=== PATIENT | male | born 1955 | race Caucasian/White ===

== ENCOUNTER 2018-06-19 15:33 | Inpatient (IN) | payer OTHER, SELFPAY ==
[2018-06-19] VITALS (15 sets, daily range): BP systolic 158–210; BP diastolic 83–134; PULSE 87–121; RESP 16–20; TEMP 36.6–37.2; O2SAT 79–95; BMI 28.7; BMI 30.4
--- NOTE | 2018-06-19 15:49 | EKG12_ITS ---
Test Reason : SOB Blood Pressure : / mmHG Vent. Rate : 111 BPM Atrial Rate : 111 BPM P-R Int : 148 ms QRS Dur : 074 ms QT Int : 358 ms P-R-T Axes : 070 031 069 degrees QTc Int : 486 ms Sinus tachycardia Otherwise normal ECG Confirmed by KRZYSZTOF WHITNEY, ANDREEA ([id number]), publication editor KARLA BARAJAS ([id number]) on 06/22/2018 2:14:46 PM Referred By: IDA Confirmed By:ANDREEA BLANKESNHIP MD
--- NOTE | 2018-06-19 15:53 | ED.VISSUMM ---
- ER Visit Summary Date of Service: 06/19/18 Chief Complaint: Shortness of breath History of Present Illness: The patient is a 62 M who states he has not seen a doctor since at least the mid 1970s. Patient has a greater than [id number] history of smoking. Smokes currently about a pack per day. States he has been short of breath the last 1-2 years and has not had that evaluated. That is gotten worse of the last 2 days. Worse with exertion. He is also noticed some mild swelling in both lower extremities. He has never had a DVT or PE. He denies any known cardiac history but again he has not seen a doctor for more than 40 years. He has recently traveled to and from [place] by ground vehicle. He denies any calf pain. He denies any chest pain or hemoptysis. He denies any fever or melena. Physical Examination: Middle-aged male. Initial vital signs blood pressure 210/134. Afebrile. His initial pulse ox was 79% in triage without oxygen on 4 L is 94%. HEENT exam moist mucous membranes. Neck nontender no JVD. No lymphadenopathy. Lungs prolonged expiratory phase. No rales or rhonchi. Heart tachycardic rate about 120. No murmur. Abdomen is soft and nontender. Normal bowel sounds. No peritoneal signs. Patient moving all 4 extremities. 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 Both lower extremities have normal motor strength sensation. He has equal symmetrical trace edema in both lower extremities and feet. Calves are nontender without cords. Neurologically is awake alert with no focal motor deficits. Test Results: Chest x-ray shows chronic changes and borderline cardiomegaly no acute process. Read both by myself and radiologist. CBC White count of 10. Hemoglobin 17. Electrolytes unremarkable normal BUN, creatinine and gap. Troponin normal. D-dimer normal. BNP 297. EKG sinus tachycardia rate of 111 with no acute signs of PA or ischemia. Emergency Department Course and Treatment: Patient be given 2 aerosol treatments of DuoNeb and albuterol. He will do significant workup for both cardiac and respiratory causes. Due to his hypoxia he will most likely need to be admitted. Repeat exam is done better after aerosol treatments. He will also be given 125 of Solu-Medrol IV. Clinically an exacerbation of COPD. I very spoken to the hospitalist and she is down ER evaluating patient for admission. Treatment Plan: Hospitalization for further respiratory treatments. Disposition: Admission Impression: Acute dyspnea with hypoxia Acute examination of COPD newly diagnosed Trace lower extremity edema This note was generated with [employer] dictation software. It may contain incorrect words, spelling, and punctuation that were not noted in review of the chart prior to signing ED Disposition - Plan for ED Patient: Chief Complaint: Shortness of Breath
--- NOTE | 2018-06-19 15:55 | RAD_ITS ---
STUDY: X-RAY CHEST REASON FOR EXAM: Male, 62 years old. Chest pain TECHNIQUE: Single AP portable view of the chest. COMPARISON: None. FINDINGS: The lungs are clear and expanded. There is no demonstrated pleural abnormality. There is mild cardiac enlargement. Normal mediastinum and amrit. Normal visualized pulmonary arteries. Normal visualized aortic arch and descending thoracic aorta. Normal visualized thoracic spine. Normal visualized ribs, clavicles, and shoulders. There is no demonstrated abnormality of the visualized soft tissue structures of the upper abdomen. RAD/Chest 1 View (Portable) IMPRESSION: Mild cardiomegaly. Lungs are clear. Electronically Signed: Jozef Mendez DO at 16:37 EST Tel , Service support ,
--- NOTE | 2018-06-19 15:55 | NURSING ---
NO OLD EKGS
--- NOTE | 2018-06-19 15:56 | ED.DCSUM_ITS ---
- ER Visit Summary Date of Service: 06/19/18 Chief Complaint: Shortness of breath History of Present Illness: The patient is a 62 M who states he has not seen a doctor since at least the mid 1970s. Patient has a greater than [id number] history of smoking. Smokes currently about a pack per day. States he has been short of breath the last 1-2 years and has not had that evaluated. That is gotten worse of the last 2 days. Worse with exertion. He is also noticed some mild swelling in both lower extremities. He has never had a DVT or PE. He denies any known cardiac history but again he has not seen a doctor for more than 40 years. He has recently traveled to and from [place] by ground vehicle . He denies any calf pain. He denies any chest pain or hemoptysis. He denies any fever or melena. Physical Examination: Middle-aged male. Initial vital signs blood pressure 2 10/134. Afebrile. His initial pulse ox was 79% in triage without oxygen on 4 L is 94%. HEENT exam moist mucous membranes. Neck nontender no JVD. No lymphadenopathy. Lungs prolonged expiratory phase. No rales or rhonchi. Heart tachycardic rate about 120. No murmur. Abdomen is soft and nontender. Normal bowel sounds. No peritoneal signs. Patient moving all 4 extremities. The upper extremities are neurovascular intact with 5 out of 5 bilingual spanish inbound sales strength. Both lower extremities have normal motor strength sensation. He has equal symmetrical trace edema in both lower extremities and feet. Calves are nontender without cords. Neurologically is awake alert with no focal motor deficits. Test Results: Chest x-ray shows chronic changes and borderline cardiomegaly no a cute process. Read both by myself and radiologist. CBC White count of 10. Hemoglobin 17. Electrolytes unremarkable normal BUN, creatinine and gap. Troponin normal. D-dimer normal. BNP 297. EKG sinus tachycardia rate of 111 with no acute signs of KS or ischemia. Emergency Department Course and Treatment: Patient be given 2 aerosol treatments of DuoNeb and albuterol. He will do significant workup for both cardiac and respiratory causes. Due to his hypoxia he will most likely need to be admitted. Repeat exam is done better after aerosol treatments. He will also be given 125 of Solu-Medrol IV. Clinically an exacerbation of COPD. I very spoken to the hospitalist and she is down ER evaluating patient for admission. Treatment Plan: Hospitalization for further respiratory treatments. Disposition: Admission Impression: Acute dyspnea with hypoxia Acute examination of COPD newly diagnosed Trace lower extremity edema This note was generated with [employer] dictation software. It may contain incorrect words, spelling, and punctuation that were not noted in review of the chart prior to signing ED Disposition - Plan for ED Patient: Chief Complaint: Shortness of Breath
[2018-06-19 16:03] LABS: Absolute Lymphocyte Count 2.14 X10^3/ul (0.83-4.51); Basophil# 0.05 X10^3/uL; Basophil% 0.5 % (0-1); Eosinophil# 0.08 X10^3/uL; Eosinophils% 0.8 % (0-5); Hemoglobin 17.9 g/dl (13.0-16.5); Lymphocyte # 2.14 X10^3/ul (4.0); Lymphocyte % 20.4 % (19-41); Mean Corp Hgb Conc 31.5 g/gl (32-36); Mean Corpuscular Hgb 29.5 pg (27.0-32.0); Mean Corpuscular Volume 93.6 fL (80-94); Mean Platelet Vol. 11.8 fl (6.2-12.0); Monocyte# 1.16 X10^3/uL; Monocyte% 11.1 % (0-10); Neutrophil # 7.03 X10^3/uL (2.7-7.7); Platelet Count 219 K/mm3 (150-450); RBC Distribution Width CV 13.6 % (11.6-14.6); RBC Distribution Width SD 46.7 fl (35.1-43.9); Red Blood Count 6.07 M/mm3 (4.6-6.2); White Blood Count 10.5 K/mm3 (4.4-11.0)
[2018-06-19 16:07] LABS: Hematocrit 56.8 % (40-54); POSITIVE COUNT NO; POSITIVE DIFFERENTIAL NO; POSITIVE MORPHOLOGY NO
[2018-06-19] MEDS: Albuterol 2.5 MG/3 ML VIAL.NEB. INHALATION (16:12)
[2018-06-19] MEDS: Ipratropium/Albuterol Sulfate 3 ML AMPUL.NEB INHALATION (16:12)
[2018-06-19 16:37] LABS: BNP,B-Type NATRIURETIC PEPTIDE 297.5 pg/mL (0-100)
[2018-06-19 17:08] LABS: D-Dimer Quantitative (DVT/PE) 0.36 FEU/ug/m (0.27-0.49)
[2018-06-19 17:08] LABS: Anion Gap 7 (5-15); BUN 16 mg/dL (7-18); BUN/Creat Ratio 20.9 RATIO (10-20); Calcium,Total 8.7 mg/dL (8.5-10.1); Chloride 102 mmol/L (98-107); Creatinine, Serum 0.76 mg/dL (0.70-1.30); EST Glomerular Filtration Rate 110 mL/min (>60); Est Glom Filt Rate - Afr Amer 133 mL/min (>60); Estimated Creatinine Clearance 123.54 ml/min; Glucose 117 mg/dL (74-106); Sodium Level 140 mmol/L (136-145)
--- NOTE | 2018-06-19 17:15 | NURSING ---
MED SURG OBS WHITE HYPOXIA, COPD FLARE
[2018-06-19] MEDS: MethylPREDNISolone 125 MG/2 ML Vial IV (17:39)
--- NOTE | 2018-06-19 18:00 | PCM.HP.STD ---
Problem List (1) COPD with acute exacerbation Status: Chronic (2) Acute respiratory failure with hypoxia Status: Acute (3) Tobacco use Status: Acute (4) Elevated BP without diagnosis of hypertension Status: Acute (5) NIDA (obstructive sleep apnea) Status: Suspected (6) Overweight (BMI 25.0-29.9) Status: Chronic (7) Lower extremity edema Status: Chronic History of Present Illness Date of Admission: 06/19/18 Chief Complaint: Dyspnea The patient is a 62 y/o M w/ PMHx: Obesity, Tobacco use who presents to the [facility] ED on 06/19/18 with history of not seeing a physician since the mid with history of ongoing tobacco use previously 2 pack/day now down to 5-10 cigarettes daily with at least a 32-[id number]-[id number] history with ongoing dyspnea over the last year at least worsened dramatically over the last 2 days, more severe with exertion in addition to mildly increased swelling bilateral lower extremities with recent drive from [place] during the holidays with chronic cough, occasionally productive with no fevers or chills. The patient does travel overseas routinely to [facility] and remains there for several weeks. The ED initial presentation with T 97.8, heart rate 121, BP 210/134, respiratory rate 20, 79% on room air, increased work of breathing, accessory muscle usage, conversational dyspnea, improved to heart rate 107, BP 184/114, respiratory rate 18, 94% on 2 L with oxygen supplementation and interventions in the ED. ED workup included BC with WC 10.5, heme globin 17.9, platelet 219 without market shift, d-dimer 0.36, BMP with glucose 117, troponin 0 0.039, EKG with sinus tachycardia with no acute evidence of ischemia, BNP 297.5 chest x-ray with chronic changes, mild cardiomegaly. In the ED patient administered Solu-Medrol, DuoNeb, albuterol therapies. Past Medical History Past Medical History (Chronic Problems): Chronic Problems COPD with acute exacerbation (Chronic) Overweight (BMI 25.0-29.9) (Chronic) Lower extremity edema (Chronic) Allergies No Known Allergies Allergy (Verified 06/19/18 15:41) Home Medications: Ambulatory Orders Medication Instructions Recorded NK 06/19/18 Surgical History: no surgical history Psychiatric History: No pertinent psych hx Lives: Spouse/ Significant Other Smoking Status: Current every day smoker - Currently 5-10 cig/day, prior up to 2 ppd since teen, at least 40 year history of cigarette usage. Tobacco Use: Cigarettes Alcohol: None Drugs: None - *Family History Maternal History Items: - - Mother with a history of bone cancer. Paternal History Items: - - Father with a history of COPD, tobacco usage noted to be a grain commodity manager with exposure. Review of Systems Constitutional: Reports: Malaise, Weakness, Fatigue. Denies: Chills, Fever, Weight Change HEENT: Denies: Head Aches, Sinus Congestion, Sinus Drainage Cardiovascular: Reports: Edema. Denies: Chest Pain, Palpitations Respiratory: Reports: Cough, Shortness of Breath, Shortness of breath at rest, Shortness of breath upon exertion, Sputum production, Wheezing Gastrointestinal: Denies: Abdominal Pain, Nausea, Vomiting Genitourinary: Denies: Dysuria Musculoskeletal: Denies: Joint Pain, Joint Tenderness Skin: Denies: Rash, Wounds Neurological: Denies: Numbness, Tingling, Focal weakness Psychiatric: Denies: Anxiety, Depression, Homicidal Ideations, Suicidal Ideations Hematologic/ Lymphatic: Denies: Easy Bruising, Easy Bleeding VTE Information - Inpt Only VTE Present on Admission: No VTE Mechan Device Prophylaxis: SCD's VTE Pharm Prophylaxis ordered?: Yes Patient Problems: Active and Suspected Problems Acute respiratory failure with hypoxia (Acute) Tobacco use (Acute) Elevated BP without diagnosis of hypertension (Acute) NIDA (obstructive sleep apnea) (Suspected) Subjective: Seated upright in the MS bed, improved appearance from prior initial ED presentation, had been noted to have increased work of breathing, accessory muscle usage prior w/ O2 79%. Objective: Physical Examination: General: awake, alert, oriented x 3 and cooperative, seated upright in the MS bed in no apparent distress, notably improved, noted he had prior had perioral blue hue, increased work of breathing, accessory muscle usage, now able to converse. Skin: normal color, turgor, no icterus, cyanosis. HEENT: AT/NC, EOMI, PERRLA, mildly dry MM, no carotid bruits or JVD noted, thickened neck. Lungs: Diminished BS throughout, mild end expiratory wheeze noted, improved from prior as noted, increased work of breathing, accessory muscle usage, conversing currently, no rales or rhonchi. Heart: Improved, mildly tachycardic with regular rhythm; no gallop, rub audible. Abdomen: soft, obese, NTTP, ND, normal BS, no HSM. Extremities: no cyanosis, clubbing, mild BL ankle edema. Neurological: patient awake, alert, oriented x 3; cognitive function intact; pupils equally reactive to light and accomodation; cranial nerves II-XII grossly normal, moving all 4 extremities, no focal deficits, strength moderately to severely globally decreased secondary to acute presentation, improved from initial. Psychiatric: affect appears normal, fatigued, no acute evidence of depressive or anxiety feelings. - Physical Exam Vital Signs Temp Pulse Resp BP Pulse Ox 99.0 F 107 H 18 184/114 H 94 06/19/18 17:16 06/19/18 17:16 06/19/18 17:16 06/19/18 17:16 06/19/18 17:16 Oxygen Flow Rate (L/min) 2 Oxygen Delivery Method Nasal Cannula Weight: 230 lb Body Mass Index (BMI) 28.7 Laboratory Tests Past 24 Hrs 06/19/18 06/19/18 06/19/18 15:50 15:50 15:50 WBC 10.5 RBC 6.07 Hgb 17.9 H Hct 56.8 H MCV 93.6 MCH 29.5 MCHC 31.5 L RDW 13.6 RDW Differential 46.7 H Plt Count 219 MPV 11.8 Immature Gran % (Auto) 0.200 Neut % (Auto) 67.0 Lymph % (Auto) 20.4 Jay % (Auto) 11.1 H Eos % (Auto) 0.8 Baso % (Auto) 0.5 Absolute Neuts (auto) 7.0 Absolute Lymphs (auto) 2.14 Total Counted Not Reportable D-Dimer Quant (PE/DVT) Cancelled Sodium 140 Potassium 5.0 Chloride 102 Carbon Dioxide 31.0 Anion Gap 7 BUN 16 Creatinine 0.76 Estim Creat Clear Calc 123.54 Est GFR (MDRD) Af Amer 133 Est GFR (MDRD) Non-Af 110 BUN/Creatinine Ratio 20.9 H Glucose 117 H Calcium 8.7 Troponin I 0.039 B-Natriuretic Peptide 06/19/18 06/19/18 15:50 16:17 WBC RBC Hgb Hct MCV MCH MCHC RDW RDW Differential Plt Count MPV Immature Gran % (Auto) Neut % (Auto) Lymph % (Auto) Jay % (Auto) Eos % (Auto) Baso % (Auto) Absolute Neuts (auto) Absolute Lymphs (auto) Total Counted D-Dimer Quant (PE/DVT) 0.36 Sodium Potassium Chloride Carbon Dioxide Anion Gap BUN Creatinine Estim Creat Clear Calc Est GFR (MDRD) Af Amer Est GFR (MDRD) Non-Af BUN/Creatinine Ratio Glucose Calcium Troponin I B-Natriuretic Peptide 297.5 H Assessment/Plan All Active Problems Acute respiratory failure with hypoxia (Acute) Tobacco use (Acute) Elevated BP without diagnosis of hypertension (Acute) The patient is a 62 y/o M w/ PMHx: Obesity, Tobacco use who presents to the [facility] ED on 06/19/18 with history of not seeing a physician since the mid 1970s with history of ongoing tobacco use previously 2 pack/day now down to 5-10 cigarettes daily with at least a [id number] history with ongoing dyspnea over the last year at least worsened dramatically over the last 2 days, more severe with exertion in addition to mildly increased swelling bilateral lower extremities with recent drive from [place] during the holidays with chronic cough, occasionally productive with no fevers or chills. (1) Acute on Suspected chronic COPD exacerbation w/ Acute Hypoxic Respiratory Failure: D-dimer negative. CXR w/ chronic changes while cardiomegaly, initial oxygenation 79%, accessory muscle usage noted, increased work of breathing initially, improved with aerosols and steroid administration as well as supplemental oxygen therapies. Will admit to MS on telemetry given improvement following ED interventions, maintain on oxygen with wean as tolerated to room air, continue ATC duonebs, PRN albuterol, IV methylprednisolone, HOB, IS parameters, pending sputum cultures and respiratory viral panel. Will benefit from oxygenation testing prior to discharge to home in addition to follow-up with pulmonary medicine for pulmonary function testing and for deep apnea assessment as and patient notes that he snores markedly and has thickened neck. Given patient notable oversee travels to [place] may need to consider CT chest. (2) Elevated BP without HTN: Suspect long-term uncontrolled hypertension, will add low-dose JEFF inhibitor, continue PRN IV Lopressor and hydralazine, add additional regimen pending response, add baby daily aspirin. Echocardiogram pending as noted BL LE edema and cardiomegaly in setting of uncontrolled HTN. AM FLP requested. (3) Obesity: Weight loss and lifestyle changes encouraged, nutrition consulted for education and teaching. (4) Tobacco Abuse: Encouraged cessation, inpatient consultation per RT, NR if desired. (5) Suspected NIDA: Benefit from outpatient sleep study assessment with pulmonary follow-up as noted for PFTs. (6) DVT Prophylaxis: SCDs, lovenox. Code Visit Inpatient E&M: 22619 Init Hosp L3
--- NOTE | 2018-06-19 18:05 | HP.PCM_ITS ---
Problem List (1) COPD with acute exacerbation Status: Chronic (2) Acute respiratory failure with hypoxia Status: Acute (3) Tobacco use Status: Acute (4) Elevated BP without diagnosis of hypertension Status: Acute (5) NIDA (obstructive sleep apnea) Status: Suspected (6) Overweight (BMI 25.0-29.9) Status: Chronic (7) Lower extremity edema Status: Chronic History of Present Illness Date of Admission: 06/19/18 Chief Complaint: Dyspnea The patient is a 62 y/o M w/ PMHx: Obesity, Tobacco use who presents to the [facility] ED on 06/19/18 with history of not seeing a physician since the mid with history of ongoing tobacco use previously 2 pack/day now down to 5-10 cigarettes daily with at least a [id number] history with ongoing dyspnea over the last year at least worsened dramatically over the last 2 days, more severe with exertion in addition to mildly increased swelling bilateral lower extremities with recent drive from [place] during the holidays with chronic cough, occasionally productive with no fevers or chills. The patient does travel overseas routinely to [facility] and remains there for several weeks. The ED initial presentation with T 97.8, heart rate 121, BP 210/134, respiratory rate 20, 79% on room air, increased work of breathing, accessory muscle usage, conversational dyspnea, improved to heart rate 107, BP 184/114, respiratory rate 18, 94% on 2 L with oxygen supplementation and interventions in the ED. ED workup included BC with WC 10.5, heme globin 17.9, platelet 219 without market shift, d-dimer 0.36, BMP with glucose 117, troponin 0 0.039, EKG with sinus tachycardia with no acute evidence of ischemia, BNP 297.5 chest x-ray with chronic changes, mild cardiomegaly. In the ED patient administered Solu-Medrol, DuoNeb, albuterol therapies. Past Medical History Past Medical History (Chronic Problems): Chronic Problems COPD with acute exacerbation (Chronic) Overweight (BMI 25.0-29.9) (Chronic) Lower extremity edema (Chronic) Allergies No Known Allergies Allergy (Verified 06/19/18 15:41) Home Medications: Ambulatory Orders Medication Instructions Recorded NK 06/19/18 Surgical History: no surgical history Psychiatric History: No pertinent psych hx Lives: Spouse/ Significant Other Smoking Status: Current every day smoker - Currently 5-10 cig/day, prior up to 2 ppd since teen, at least 40 year history of cigarette usage. Tobacco Use: Cigarettes Alcohol: None Drugs: None - *Family History Maternal History Items: - - Mother with a history of bone cancer. Paternal History Items: - - Father with a history of COPD, tobacco usage noted to be a grain farmer with exposure. Review of Systems Constitutional: Reports: Malaise, Weakness, Fatigue. Denies: Chills, Fever, Weight Change HEENT: Denies: Head Aches, Sinus Congestion, Sinus Drainage Cardiovascular: Reports: Edema. Denies: Chest Pain, Palpitations Respiratory: Reports: Cough, Shortness of Breath, Shortness of breath at rest, Shortness of breath upon exertion, Sputum production, Wheezing Gastrointestinal: Denies: Abdominal Pain, Nausea, Vomiting Genitourinary: Denies: Dysuria Musculoskeletal: Denies: Joint Pain, Joint Tenderness Skin: Denies: Rash, Wounds Neurological: Denies: Numbness, Tingling, Focal weakness Psychiatric: Denies: Anxiety, Depression, Homicidal Ideations, Suicidal Ideations Hematologic/ Lymphatic: Denies: Easy Bruising, Easy Bleeding VTE Information - Inpt Only VTE Present on Admission: No VTE Mechan Device Prophylaxis: SCD's VTE Pharm Prophylaxis ordered?: Yes Patient Problems: Active and Suspected Problems Acute respiratory failure with hypoxia (Acute) Tobacco use (Acute) Elevated BP without diagnosis of hypertension (Acute) NIDA (obstructive sleep apnea) (Suspected) Subjective: Seated upright in the MS bed, improved appearance from prior initial ED presentation, had been noted to have increased work of breathing, accessory muscle usage prior w/ O2 79%. Objective: Physical Examination: General: awake, alert, oriented x 3 and cooperative, seated upright in the MS bed in no apparent distress, notably improved, noted he had prior had perioral blue hue, increased work of breathing, accessory muscle usage, now able to converse. Skin: normal color, turgor, no icterus, cyanosis. HEENT: AT/NC, EOMI, PERRLA, mildly dry MM, no carotid bruits or JVD noted, thickened neck. Lungs: Diminished BS throughout, mild end expiratory wheeze noted, improved from prior as noted, increased work of breathing, accessory muscle usage, conversing currently, no rales or rhonchi. Heart: Improved, mildly tachycardic with regular rhythm; no gallop, rub audible. Abdomen: soft, obese, NTTP, ND, normal BS, no HSM. Extremities: no cyanosis, clubbing, mild BL ankle edema. Neurological: patient awake, alert, oriented x 3; cognitive function intact; pupils equally reactive to light and accomodation; cranial nerves II-XII grossly normal, moving all 4 extremities, no focal deficits, strength moderately to severely globally decreased secondary to acute presentation, improved from initial. Psychiatric: affect appears normal, fatigued, no acute evidence of depressive or anxiety feelings. - Physical Exam Vital Signs Temp Pulse Resp BP Pulse Ox 99.0 F 107 H 18 184/114 H 94 06/19/18 17:16 06/19/18 17:16 06/19/18 17:16 06/19/18 17:16 06/19/18 17:16 Oxygen Flow Rate (L/min) 2 Oxygen Delivery Method Nasal Cannula Weight: 230 lb Body Mass Index (BMI) 28.7 Laboratory Tests Past 24 Hrs 06/19/18 06/19/18 06/19/18 15:50 15:50 15:50 WBC 10.5 RBC 6.07 Hgb 17.9 H Hct 56.8 H MCV 93.6 MCH 29.5 MCHC 31.5 L RDW 13.6 RDW Differential 46.7 H Plt Count 219 MPV 11.8 Immature Gran % (Auto) 0.200 Neut % (Auto) 67.0 Lymph % (Auto) 20.4 [place] % (Auto) 11.1 H Eos % (Auto) 0.8 Baso % (Auto) 0.5 Absolute Neuts (auto) 7.0 Absolute Lymphs (auto) 2.14 Total Counted Not Reportable D-Dimer Quant (PE/DVT) Cancelled Sodium 140 Potassium 5.0 Chloride 102 Carbon Dioxide 31.0 Anion Gap 7 BUN 16 Creatinine 0.76 Estim Creat Clear Calc 123.54 Est GFR (MDRD) Af Amer 133 Est GFR (MDRD) Non-Af 110 BUN/Creatinine Ratio 20.9 H Glucose 117 H Calcium 8.7 Troponin I 0.039 B-Natriuretic Peptide 06/19/18 06/19/18 15:50 16:17 WBC RBC Hgb Hct MCV MCH MCHC RDW RDW Differential Plt Count MPV Immature Gran % (Auto) Neut % (Auto) Lymph % (Auto) [place] % (Auto) Eos % (Auto) Baso % (Auto) Absolute Neuts (auto) Absolute Lymphs (auto) Total Counted D-Dimer Quant (PE/DVT) 0.36 Sodium Potassium Chloride Carbon Dioxide Anion Gap BUN Creatinine Estim Creat Clear Calc Est GFR (MDRD) Af Amer Est GFR (MDRD) Non-Af BUN/Creatinine Ratio Glucose Calcium Troponin I B-Natriuretic Peptide 297.5 H Assessment/Plan All Active Problems Acute respiratory failure with hypoxia (Acute) Tobacco use (Acute) Elevated BP without diagnosis of hypertension (Acute) The patient is a 62 y/o M w/ PMHx: Obesity, Tobacco use who presents to the [facility] ED on 06/19/18 with history of not seeing a physician since the mid 1970s with history of ongoing tobacco use previously 2 pack/day now down to 5-10 cigarettes daily with at least a 28-[id number] history with ongoing dyspnea over the last year at least worsened dramatically over the last 2 days, more severe with exertion in addition to mildly increased swelling bilateral lower extremities with recent drive from [place] during the holidays with chronic cough, o ccasionally productive with no fevers or chills. (1) Acute on Suspected chronic COPD exacerbation w/ Acute Hypoxic Respiratory Failure: D-dimer negative. CXR w/ chronic changes while cardiomegaly, initial oxygenation 79%, accessory muscle usage noted, increased work of breathing initially, improved with aerosols and steroid administration as well as supplemental oxygen therapies. Will admit to MS on telemetry given improvement following ED interventions, maintain on oxygen with wean as tolerated to room air, continue ATC duonebs, PRN albuterol, IV methylprednisolone, HOB, IS parameters, pending sputum cultures and respiratory viral panel. Will benefit from oxygenation testing prior to discharge to home in addition to follow-up with pulmonary medicine for pulmonary function testing and for deep apnea assessment as and patient notes that he snores markedly and has thickened neck. Given patient notable oversee travels to [place] may need to consider CT chest. (2) Elevated BP without HTN: Suspect long-term uncontrolled hypertension, will add low-dose JEFF inhibitor, continue PRN IV Lopressor and hydralazine, add additional regimen pending response, add baby daily aspirin. Echocardiogram pending as noted BL LE edema and cardiomegaly in setting of uncontrolled HTN. AM FLP requested. (3) Obesity: Weight loss and lifestyle changes encouraged, nutrition consulted for education and teaching. (4) Tobacco Abuse: Encouraged cessation, inpatient consultation per RT, NR if desired. (5) Suspected NIDA: Benefit from outpatient sleep study assessment with pulmonary follow-up as noted for PFTs. (6) DVT Prophylaxis: SCDs, lovenox. Code Visit Inpatient E&M: 75866 Init Hosp L3
--- NOTE | 2018-06-19 18:27 | ECHOD_ITS ---
Reason For Study: HTN Procedure This was a 2D Doppler, Color Flow transthoracic echocardiogram. Exam performed portable in patient room. Left Ventricle Normal LV size. Moderate concentric left ventricular hypertrophy. Left ventricular systolic function is normal. The estimated ejection fraction is 65 %. Stage 1 diastolic dysfunction. No regional wall motion abnormalities noted. Atria Normal left atrium. Normal right atrium. Mitral Valve Normal mitral valve. Tricuspid Valve Normal tricuspid valve. Aortic Valve Trisinus/trileaflet aortic valve. Mild focal aortic valve calcification. Pulmonic Valve Normal pulmonic valve. Great Vessels Normal aortic root. The pulmonary artery is normal size. Normal inferior vena cava. Pericardium/Pleural No pericardial effusion. MMode/2D Measurements & Calculations LVIDd: 4.2 cm IVSd: 1.6 cm LVOT diam: 2.3 cm LVIDs: 2.6 cm LVPWd: 1.7 cm LVOT area: 4.2 cm2 RVDd: 4.5 cm FS: 37.1 % Ao root diam: 3.3 cm LAV(MOD-bp): 68.5 ml LVAd ap4: 29.0 cm2 LAV(MOD-bp) Indexed: 29.4 ml/m2 EDV(MOD-sp4): 82.7 ml LAV(MOD-sp2): 78.9 ml EDV(sp4-el): 83.2 ml LAV(MOD-sp4): 58.1 ml LVAs ap4: 14.9 cm2 ESV(MOD-sp4): 28.1 ml ESV(sp4-el): 26.0 ml EF(MOD-sp4): 66.1 % EF(sp4-el): 68.8 % SV(MOD-sp4): 54.7 ml SV(sp4-el): 57.2 ml LA A4 area: 20.0 cm2 LA dimension(2D): 4.4 cm RA A4 area: 20.4 cm2 Doppler Measurements & Calculations MV E max ang: 79.9 cm/sec Lat Peak E' Ang: 9.6 cm/sec Med Peak E' Ang: 6.4 cm/sec MV A max ang: 119.9 cm/sec E/E' lat: 8.3 E/E' med: 12.5 MV E/A: 0.67 Ao V2 max: 233.8 cm/sec LV V1 max: 154.1 cm/sec SV(LVOT): 113.5 ml Ao max P.9 mmHg LV V1 max P.5 mmHg Ao V2 mean: 166.1 cm/sec LV V1 mean P.4 mmHg Ao mean P.3 mmHg LV V1 mean: 108.3 cm/sec Ao V2 VTI: 34.6 cm LV V1 VTI: 27.1 cm WATSON(I,D): 3.3 cm2 WATSON(V,D): 2.8 cm2 PA V2 max: 117.3 cm/sec Interpretation Summary Normal LV size. Left ventricular systolic function is normal. The estimated ejection fraction is 65 %. Stage 1 diastolic dysfunction. Mild focal aortic valve calcification. Moderate concentric left ventricular hypertrophy. Ordering Physician: Jasmyn Rich Referring Physician: Darrick Arias Performed By: Yolis Noe, LENNY, RVT
[2018-06-19 18:30] LABS: Magnesium 2.1 mg/dL (1.6-2.6)
[2018-06-19] MEDS: 0.9% Normal Saline 1,000 ML 100 ML IV (19:32)
[2018-06-19] MEDS: Lisinopril 10 MG Tablet PO (19:32)
[2018-06-19] MEDS: 0.9% NaCl Peripheral Flush Adult/Peds IV ×3 (21:28→23:03)
[2018-06-19] MEDS: Famotidine 20 MG Tablet PO (21:29)
[2018-06-19] MEDS: guaiFENesin 1,200 MG Tablet 1200 MG PO (21:29)
[2018-06-19] MEDS: hydrALAZINE 20 MG/ML Vial 10 MG IV (21:37)
[2018-06-19] MEDS: Metoprolol Tartrate 5 MG/5 ML Vial IV (23:03)
[2018-06-20] VITALS (16 sets, daily range): BP systolic 134–162; BP diastolic 68–94; PULSE 89–120; RESP 16–18; TEMP 36.3–37.3; O2SAT 91–96
[2018-06-20] MEDS: 0.9% NaCl Peripheral Flush Adult/Peds IV ×2 (05:28→08:19)
[2018-06-20] MEDS: hydrALAZINE 20 MG/ML Vial 10 MG IV (05:33)
[2018-06-20 06:14] LABS: Anion Gap 6 (5-15); BUN 13 mg/dL (7-18); BUN/Creat Ratio 17.3 RATIO (10-20); Calcium,Total 8.4 mg/dL (8.5-10.1); Chloride 103 mmol/L (98-107); Cholesterol 128 mg/dL (200); Creatinine, Serum 0.75 mg/dL (0.70-1.30); EST Glomerular Filtration Rate 112 mL/min (>60); Est Glom Filt Rate - Afr Amer 136 mL/min (>60); Estimated Creatinine Clearance 125.19 ml/min; Glucose 135 mg/dL (74-106); High Density Lipoprotein 34 mg/dL; Potassium 5.1 mmol/L (3.5-5.1); Sodium Level 142 mmol/L (136-145); Triglycerides 65 mg/dL; Very Low Density Lipoprotein 13 mg/dL (5-40)
[2018-06-20 06:28] LABS: Absolute Lymphocyte Count 0.56 X10^3/ul (0.83-4.51); Absolute Neutrophil Count 4.5 X10^3/uL (2.0-7.7); Basophil# 0.01 X10^3/uL; Basophil% 0.2 % (0-1); Hematocrit 54.7 % (40-54); Hemoglobin 16.5 g/dl (13.0-16.5); Lymphocyte # 0.56 X10^3/ul (4.0); Lymphocyte % 10.7 % (19-41); Mean Corp Hgb Conc 30.2 g/gl (32-36); Mean Corpuscular Hgb 28.7 pg (27.0-32.0); Mean Corpuscular Volume 95.1 fL (80-94); Mean Platelet Vol. 11.9 fl (6.2-12.0); Monocyte# 0.19 X10^3/uL; Monocyte% 3.6 % (0-10); Neutrophil # 4.46 X10^3/uL (2.7-7.7); Neutrophil % 85.5 % (47-70); Platelet Count 213 K/mm3 (150-450); RBC Distribution Width CV 13.4 % (11.6-14.6); RBC Distribution Width SD 46.7 fl (35.1-43.9); Red Blood Count 5.75 M/mm3 (4.6-6.2); White Blood Count 5.2 K/mm3 (4.4-11.0)
[2018-06-20 06:29] LABS: Differential Indicated SCAN CRITERIA MET; POSITIVE COUNT NO; POSITIVE DIFFERENTIAL YES; POSITIVE MORPHOLOGY NO
[2018-06-20] MEDS: Ipratropium/Albuterol Sulfate 3 ML AMPUL.NEB INHALATION ×3 (06:39→14:51)
[2018-06-20] MEDS: Furosemide 40 MG/4 ML Vial IV (08:19)
[2018-06-20] MEDS: Aspirin 81 MG TAB.CHEW PO (08:19)
--- NOTE | 2018-06-20 09:05 | PCM.PN.HOSP ---
Patient Problems: Active and Suspected Problems Acute respiratory failure with hypoxia (Acute) Tobacco use (Acute) Elevated BP without diagnosis of hypertension (Acute) NIDA (obstructive sleep apnea) (Suspected) Subjective: Patient seen and examined. He was admitted with a complaint of shortness of breath. Shortness of breath had been going on for about a year but worsened over the last couple of days with associated bilateral lower extremity edema. He had a chronic cough which was nonproductive. Patient had a recent [address] to [place] and states he drove straight through. He also had a strong tobacco history and previously smoked about 2 packs a day and had recently cut back down to about 5-10 cigarettes daily. He had about a [id number] smoking history. D-dimer was negative and initial troponin was 0.039. Chest x-ray showed mild cardiomegaly and BNP was 297.5. He was admitted and is been managed for acute hypoxic respiratory failure due to probable COPD exacerbation. Patient has no complaints though he still remains short of breath. He had been on 2 L of oxygen overnight but was just taken up to 3L because his saturation dropped to 89% on 2 L. He denies wheezing, cough, chest pain, abdominal pain, diarrhea or vomiting. Review of systems was otherwise negative. Labs and vitals reviewed. Vitals/I&O's: Vital Signs Temp Pulse Resp BP Pulse Ox 98.3 F 98 16 136/68 H 91 06/20/18 05:25 06/20/18 06:40 06/20/18 06:40 06/20/18 06:26 06/20/18 06:40 Oxygen Flow Rate (L/min) 2 Oxygen Delivery Method Nasal Cannula Weight: 243 lb 9.6 oz Body Mass Index (BMI) 30.4 Intake and Output for Last 24 Hours 06/18/18 06/19/18 06/20/18 23:59 23:59 23:59 Intake Total 970 / 970 337 / 337 Output Total 750 / 750 977 / 977 Balance 220 / 220 -640 / -640 General: Alert, Oriented x3, Cooperative, No apparent distress HEENT: Atraumatic, PERRLA, EOMI, Normocephalic Oral: Moist Mucosa Neck: Supple, No JVD, Negative Carotid Bruits Lungs: - - coarse crackles bibasally; no wheezing or rhonchi. on 3L of oxygen by nasal canula Cardiovascular: Regular rate, Regular Rhythm, Normal S1, Normal S2, No murmurs Abdomen: Bowel Sounds Present, Soft, Non Tender, Non-Distended, No Hepato-splenomegaly Extremities: No clubbing, No cyanosis, Capillary Refill Less than 3 Seconds, - - bilateral 2+ LE pitting pedal edema. Skin: No rashes, No breakdown Musculoskeletal: No Tenderness to Palpation of Joints or Extremities Lymphatic: No Cervical, Supraclavicular, or Inguinal Adenopathy Neurological: Cranial nerves II-XII grossly intact, Neuro grossly intact, Motor Exam 5/5 strength throughout Psych/Mental Status: Normal Affect, Appropriate Laboratory Results 06/19/18 15:50: WBC 10.5, RBC 6.07, Hgb 17.9 H, Hct 56.8 H, MCV 93.6, MCH 29.5, MCHC 31.5 L, RDW 13.6, RDW Differential 46.7 H, Plt Count 219, MPV 11.8, Immature Gran % (Auto) 0.200, Neut % (Auto) 67.0, Lymph % (Auto) 20.4, [place] % (Auto) 11.1 H, Eos % (Auto) 0.8, Baso % (Auto) 0.5, Absolute Neuts (auto) 7.0, Absolute Lymphs (auto) 2.14, Total Counted Not Reportable 06/19/18 15:50: Sodium 140, Potassium 5.0, Chloride 102, Carbon Dioxide 31.0, Anion Gap 7, BUN 16, Creatinine 0.76, Estim Creat Clear Calc 123.54, Est GFR (MDRD) Af Amer 133, Est GFR (MDRD) Non-Af 110, BUN/Creatinine Ratio 20.9 H, Glucose 117 H, Calcium 8.7, Troponin I 0.039 06/19/18 15:50: D-Dimer Quant (PE/DVT) Cancelled 06/19/18 15:50: B-Natriuretic Peptide 297.5 H 06/19/18 15:50: Magnesium 2.1 06/19/18 16:17: D-Dimer Quant (PE/DVT) 0.36 06/20/18 05:26: WBC 5.2, RBC 5.75, Hgb 16.5, Hct 54.7 H, MCV 95.1 H, MCH 28.7, MCHC 30.2 L, RDW 13.4, RDW Differential 46.7 H, Plt Count 213, MPV 11.9, Immature Gran % (Auto) 0.000, Neut % (Auto) 85.5 H, Lymph % (Auto) 10.7 L, [place] % (Auto) 3.6, Eos % (Auto) 0.0, Baso % (Auto) 0.2, Absolute Neuts (auto) 4.5, Absolute Lymphs (auto) 0.56 L, Total Counted Not Reportable, Differential Comment 06/20/18 05:26: Sodium 142, Potassium 5.1, Chloride 103, Carbon Dioxide 33.0 H, Anion Gap 6, BUN 13, Creatinine 0.75, Estim Creat Clear Calc 125.19, Est GFR (MDRD) Af Amer 136, Est GFR (MDRD) Non-Af 112, BUN/Creatinine Ratio 17.3, Glucose 135 H, Calcium 8.4 L, Triglycerides 65, Cholesterol 128, LDL Cholesterol 81, VLDL Cholesterol 13, HDL Cholesterol 34 L Diagnostic Data Chest X-Ray 06/19/18 15:55 IMPRESSION: Mild cardiomegaly. Lungs are clear. Electronically Signed: Jozef Mendez DO at 16:37 EST Tel , Service support , Current Medications Acetaminophen (Tylenol) 650 mg PO Q6H PRN PRN PRN Reason: Mild Pain (scale 0-3)/T>100.7 Al Hydroxide/Mg Hydroxide (Mylanta Ii) 30 ml PO Q6H PRN PRN PRN Reason: Gastric burning Albuterol Sulfate (Ventolin Aerosols) 2.5 mg INHALATION Q2H PRN PRN PRN Reason: SHORTNESS OF BREATH Albuterol/Ipratropium (Duoneb) 3 ml INHALATION Q4HWA.RT [facility] Last Admin: 06/20/18 06:39 Dose: 3 ml Aspirin (Aspirin, Baby) 81 mg PO DAILY@0800 [facility] Last Admin: 06/20/18 08:19 Dose: 81 mg Enoxaparin Sodium (Lovenox) 40 mg SC DAILY@1000 [facility] Famotidine (Pepcid) 20 mg PO BID [facility] Last Admin: 06/19/18 21:29 Dose: 20 mg Guaifenesin (Mucinex) 1,200 mg PO BID [facility] Last Admin: 06/19/18 21:29 Dose: 1,200 mg Hydralazine HCl (Apresoline Iv) 10 mg IV Q4H PRN PRN PRN Reason: SBP > 160 Last Admin: 06/20/18 05:33 Dose: 10 mg Lisinopril (Zestril) 10 mg PO DAILY [facility] Magnesium Hydroxide (Milk Of Magnesia) 30 ml PO DAILY PRN PRN PRN Reason: Constipation Methylprednisolone (Solu-Medrol) 40 mg IV Q8 [facility] Last Admin: 06/20/18 05:28 Dose: 40 mg Metoprolol Tartrate (Lopressor (Beta Rajwinder)) 5 mg IV Q6H PRN PRN PRN Reason: SBP > 160, hold for HR < 60 Last Admin: 06/19/18 23:03 Dose: 5 mg Nutritional Formula (Lactose Free) (Ensure Enlive) 120 ml PO 4X/DAY [facility] Last Admin: 06/19/18 21:37 Dose: 120 ml Ondansetron HCl (Zofran) 4 mg IV Q8H PRN PRN PRN Reason: NAUSEA Promethazine HCl (Phenergan) 12.5 mg IV Q6H PRN PRN PRN Reason: NAUSEA/VOMITING Sodium Chloride () 5 - 15 ml IV UD PRN PRN Reason: SALINE FLUSH Last Admin: 06/20/18 08:19 Dose: 10 ml Medical Necessity - Tobacco Use Smoking Status: Current every day smoker Tobacco Use: Cigarettes Assessment/Plan All Active Problems Acute respiratory failure with hypoxia (Acute) Tobacco use (Acute) Elevated BP without diagnosis of hypertension (Acute) 1. Acute hypoxic respiratory failure due to probable COPD exacerbation never diagnosed with COPD, because he hasnt seen a doctor in years D dimer was negative currently on 3L of oxygen. on IV solumedrol, breathing treatments with duonebs respiratory panel is pending will need a sleep study upon discharge as he says he snores a lot also BNP was 297; 2D echo pending will give one dose of IV lasix 40mg once. will get chest CT without contrast to rule out a PE and to assess the lungs better; even though his D dimer was negative, his Well's criteria was 4.5, and clinical suspicion for PE is high o/a of acute onset of symptoms after recent long distance travel 2. Newly diagnosed hypertension BP was in 210s on admission hadnt been previously diagnosed with hypertension was started on PO lisinopril 10mg daily. hydralazine prn 4. Nicotine abuse: patient counselled to quit. Nicotine patch 5. Possible NIDA: says he snores a lot. Will refer for outpatient sleep study on discharge. DVT prophylaxis: ralphnox Code Visit Inpatient E&M: 92575 Subs Hosp L3
--- NOTE | 2018-06-20 09:09 | PN_ITS ---
Patient Problems: Active and Suspected Problems Acute respiratory failure with hypoxia (Acute) Tobacco use (Acute) Elevated BP without diagnosis of hypertension (Acute) NIDA (obstructive sleep apnea) (Suspected) Subjective: Patient seen and examined. He was admitted with a complaint of shortness of breath. Shortness of breath had been going on for about a year but worsened over the last couple of days with associated bilateral lower extremity edema. He had a chronic cough which was nonproductive. Patient had a recent [address] to [place] and states he drove straight through. He also had a strong tobacco history and previously smoked about 2 packs a day and had recently cut back down to about 5-10 cigarettes daily. He had about a 34-[id number] smoking history. D-dimer was negative and initial troponin was 0.039. Chest x-ray showed mild cardiomegaly and BNP was 297.5. He was admitted and is been managed for acute hypoxic respiratory failure due to probable COPD exacerbation. Patient has no complaints though he still remains short of breath. He had been on 2 L of oxygen overnight but was just taken up to 3L because his saturation dropped to 89% on 2 L. He denies wheezing, cough, chest pain, abdominal pain, diarrhea or vomiting. Review of systems was otherwise negative. Labs and vitals reviewed. Vitals/I&O's: Vital Signs Temp Pulse Resp BP Pulse Ox 98.3 F 98 16 136/68 H 91 06/20/18 05:25 06/20/18 06:40 06/20/18 06:40 06/20/18 06:26 06/20/18 06:40 Oxygen Flow Rate (L/min) 2 Oxygen Delivery Method Nasal Cannula Weight: 243 lb 9.6 oz Body Mass Index (BMI) 30.4 Intake and Output for Last 24 Hours 06/18/18 06/19/18 06/20/18 23:59 23:59 23:59 Intake Total 970 / 970 337 / 337 Output Total 750 / 750 977 / 977 Balance 220 / 220 -640 / -640 General: Alert, Oriented x3, Cooperative, No apparent distress HEENT: Atraumatic, PERRLA, EOMI, Normocephalic Oral: Moist Mucosa Neck: Supple, No JVD, Negative Carotid Bruits Lungs: - - coarse crackles bibasally; no wheezing or rhonchi. on 3L of oxygen by nasal canula Cardiovascular: Regular rate, Regular Rhythm, Normal S1, Normal S2, No murmurs Abdomen: Bowel Sounds Present, Soft, Non Tender, Non-Distended, No Hepato- splenomegaly Extremities: No clubbing, No cyanosis, Capillary Refill Less than 3 Seconds, - - bilateral 2+ LE pitting pedal edema. Skin: No rashes, No breakdown Musculoskeletal: No Tenderness to Palpation of Joints or Extremities Lymphatic: No Cervical, Supraclavicular, or Inguinal Adenopathy Neurological: Cranial nerves II-XII grossly intact, Neuro grossly intact, Motor Exam 5/5 strength throughout Psych/Mental Status: Normal Affect, Appropriate Laboratory Results 06/19/18 15:50: WBC 10.5, RBC 6.07, Hgb 17.9 H, Hct 56.8 H, MCV 93.6, MCH 29.5, MCHC 31.5 L, RDW 13.6, RDW Differential 46.7 H, Plt Count 219, MPV 11.8, Immature Gran % (Auto) 0.200, Neut % (Auto) 67.0, Lymph % (Auto) 20.4, [place] % (Auto) 11.1 H, Eos % (Auto) 0.8, Baso % (Auto) 0.5, Absolute Neuts (auto) 7.0, Absolute Lymphs (auto) 2.14, Total Counted Not Reportable 06/19/18 15:50: Sodium 140, Potassium 5.0, Chloride 102, Carbon Dioxide 31.0, Anion Gap 7, BUN 16, Creatinine 0.76, Estim Creat Clear Calc 123.54, Est GFR (MDRD) Af Amer 133, Est GFR (MDRD) Non-Af 110, BUN/Creatinine Ratio 20.9 H, Glucose 117 H, Calcium 8.7, Troponin I 0.039 06/19/18 15:50: D-Dimer Quant (PE/DVT) Cancelled 06/19/18 15:50: B-Natriuretic Peptide 297.5 H 06/19/18 15:50: Magnesium 2.1 06/19/18 16:17: D-Dimer Quant (PE/DVT) 0.36 06/20/18 05:26: WBC 5.2, RBC 5.75, Hgb 16.5, Hct 54.7 H, MCV 95.1 H, MCH 28.7, MCHC 30.2 L, RDW 13.4, RDW Differential 46.7 H, Plt Count 213, MPV 11.9, Immature Gran % (Auto) 0.000, Neut % (Auto) 85.5 H, Lymph % (Auto) 10.7 L, [place] % (Auto) 3.6, Eos % (Auto) 0.0, Baso % (Auto) 0.2, Absolute Neuts (auto) 4.5, Absolute Lymphs (auto) 0.56 L, Total Counted Not Reportable, Differential Comment 06/20/18 05:26: Sodium 142, Potassium 5.1, Chloride 103, Carbon Dioxide 33.0 H, Anion Gap 6, BUN 13, Creatinine 0.75, Estim Creat Clear Calc 125.19, Est GFR (MDRD) Af Amer 136, Est GFR (MDRD) Non-Af 112, BUN/Creatinine Ratio 17.3, Glucose 135 H, Calcium 8.4 L, Triglycerides 65, Cholesterol 128, LDL Cholesterol 81, VLDL Cholesterol 13, HDL Cholesterol 34 L Diagnostic Data Chest X-Ray 06/19/18 15:55 IMPRESSION: Mild cardiomegaly. Lungs are clear. Electronically Signed: Jozef Mendez DO at 16:37 EST Tel , Service support , Current Medications Acetaminophen (Tylenol) 650 mg PO Q6H PRN PRN PRN Reason: Mild Pain (scale 0-3)/T>100.7 Al Hydroxide/Mg Hydroxide (Mylanta Ii) 30 ml PO Q6H PRN PRN PRN Reason: Gastric burning Albuterol Sulfate (Ventolin Aerosols) 2.5 mg INHALATION Q2H PRN PRN PRN Reason: SHORTNESS OF BREATH Albuterol/Ipratropium (Duoneb) 3 ml INHALATION Q4HWA.RT [facility] Last Admin: 06/20/18 06:39 Dose: 3 ml Aspirin (Aspirin, Baby) 81 mg PO DAILY@0800 [facility] Last Admin: 06/20/18 08:19 Dose: 81 mg Enoxaparin Sodium (Lovenox) 40 mg SC DAILY@1000 [facility] Famotidine (Pepcid) 20 mg PO BID [facility] Last Admin: 06/19/18 21:29 Dose: 20 mg Guaifenesin (Mucinex) 1,200 mg PO BID [facility] Last Admin: 06/19/18 21:29 Dose: 1,200 mg Hydralazine HCl (Apresoline Iv) 10 mg IV Q4H PRN PRN PRN Reason: SBP > 160 Last Admin: 06/20/18 05:33 Dose: 10 mg Lisinopril (Zestril) 10 mg PO DAILY [facility] Magnesium Hydroxide (Milk Of Magnesia) 30 ml PO DAILY PRN PRN PRN Reason: Constipation Methylprednisolone (Solu-Medrol) 40 mg IV Q8 [facility] Last Admin: 06/20/18 05:28 Dose: 40 mg Metoprolol Tartrate (Lopressor (Beta Rajwinder)) 5 mg IV Q6H PRN PRN PRN Reason: SBP > 160, hold for HR < 60 Last Admin: 06/19/18 23:03 Dose: 5 mg Nutritional Formula (Lactose Free) (Ensure Enlive) 120 ml PO 4X/DAY [facility] Last Admin: 06/19/18 21:37 Dose: 120 ml Ondansetron HCl (Zofran) 4 mg IV Q8H PRN PRN PRN Reason: NAUSEA Promethazine HCl (Phenergan) 12.5 mg IV Q6H PRN PRN PRN Reason: NAUSEA/VOMITING Sodium Chloride () 5 - 15 ml IV UD PRN PRN Reason: SALINE FLUSH Last Admin: 06/20/18 08:19 Dose: 10 ml Medical Necessity - Tobacco Use Smoking Status: Current every day smoker Tobacco Use: Cigarettes Assessment/Plan All Active Problems Acute respiratory failure with hypoxia (Acute) Tobacco use (Acute) Elevated BP without diagnosis of hypertension (Acute) 1. Acute hypoxic respiratory failure due to probable COPD exacerbation * never diagnosed with COPD, because he hasnt seen a doctor in years * D dimer was negative * currently on 3L of oxygen. * on IV solumedrol, breathing treatments with duonebs * respiratory panel is pending * will need a sleep study upon discharge as he says he snores a lot also * BNP was 297; 2D echo pending * will give one dose of IV lasix 40mg once. * will get chest CT without contrast to rule out a PE and to assess the lungs better; even though his D dimer was negative, his Well's criteria was 4.5, and clinical suspicion for PE is high o/a of acute onset of symptoms after recent long distance travel * 2. Newly diagnosed hypertension * BP was in 210s on admission * hadnt been previously diagnosed with hypertension * was started on PO lisinopril 10mg daily. * hydralazine prn * 4. Nicotine abuse: patient counselled to quit. Nicotine patch 5. Possible NIDA: says he snores a lot. Will refer for outpatient sleep study on discharge. DVT prophylaxis: daveyx Code Visit Inpatient E&M: 89239 Subs Hosp L3
--- NOTE | 2018-06-20 09:21 | CT_ITS ---
STUDY: CTA CHEST REASON FOR EXAM: Male, 62 years old. Hypoxia. Acute COPD. RADIATION DOSAGE (If Supplied By Facility): CTDIvol = ( 12.56 ) mGy, DLP = ( 716.50 ) mGycm TECHNIQUE: The examination was performed with the intravenous administration of 100 ml of Isovue 370 contrast material. Post-processing of the angiographic images was performed, with multiplanar reformation and 3D reconstruction. Individualized dose optimization techniques were used for this CT. COMPARISON: None. FINDINGS: Mildly suboptimal exam for pulmonary embolism with contrast bolus in the main pulmonary artery at HU 237. No evidence of a large central pulmonary embolism. Normal thoracic aorta and visualized great vessels. There is no demonstrated aortic dissection. Mild cardiomegaly is noted. Normal pericardium. Scattered small mediastinal lymph nodes. Normal hilar regions. Normal visualized trachea and bronchi. The lungs are hyper expanded, with flattening of the hemidiaphragms. Bibasilar airspace disease is noted; right greater than left. Suspect infection. Developing small right effusion. Mild emphysematous changes throughout the lungs. Normal chest wall structures. Normal osseous structures. Normal visualized upper abdomen. CT/CTA Chest W/WO Contrast IMPRESSION: 1. Mildly suboptimal exam for pulmonary embolism as above. No large central pulmonary embolism is noted. Negative for thoracic aortic dissection 2. COPD with bibasilar airspace disease suggesting pneumonia 3. Mild emphysematous changes throughout the lungs Electronically Signed: Jozef Mendez DO at 10:44 EST Tel , Service support ,
[2018-06-20] MEDS: Famotidine 20 MG Tablet PO ×2 (11:00→22:01)
[2018-06-20] MEDS: Lisinopril 10 MG Tablet PO (11:00)
[2018-06-20] MEDS: guaiFENesin 1,200 MG Tablet 1200 MG PO ×2 (11:00→22:01)
[2018-06-20] MEDS: Enoxaparin 40 MG/0.4 ML Syringe SC (11:00)
--- NOTE | 2018-06-20 11:14 | CASEMGMT ---
RN CM Assessment Presentation: COPD exacerbation PCP: Dr. Darrick Coleman [facility] Insurance: [employer] Prescription Benefit: yes LNOK: Natasha Sandoval, Living Arrangements: Lives independently with Transportation: drives DME/HHC: No current DME.Recommend home oxygen testing if pt still on O2 closer to dc. If Home oxygen is needed, ok to use [facility]. DC PLAN: Home on discharge
[2018-06-21] VITALS (13 sets, daily range): BP systolic 144–171; BP diastolic 68–104; PULSE 83–115; RESP 16–18; TEMP 36.6–37.1; O2SAT 84–98
[2018-06-21 06:51] LABS: Absolute Lymphocyte Count 0.92 X10^3/ul (0.83-4.51); Absolute Neutrophil Count 8.5 X10^3/uL (2.0-7.7); Basophil# 0.01 X10^3/uL; Basophil% 0.1 % (0-1); Hematocrit 54.2 % (40-54); Lymphocyte # 0.92 X10^3/ul (4.0); Lymphocyte % 9.1 % (19-41); Mean Corp Hgb Conc 31.4 g/gl (32-36); Mean Corpuscular Hgb 29.2 pg (27.0-32.0); Neutrophil # 8.54 X10^3/uL (2.7-7.7); Neutrophil % 84.7 % (47-70); Platelet Count 230 K/mm3 (150-450); RBC Distribution Width CV 13.9 % (11.6-14.6); RBC Distribution Width SD 46.1 fl (35.1-43.9); Red Blood Count 5.83 M/mm3 (4.6-6.2); White Blood Count 10.1 K/mm3 (4.4-11.0)
[2018-06-21 06:52] LABS: POSITIVE COUNT NO; POSITIVE DIFFERENTIAL NO; POSITIVE MORPHOLOGY NO
[2018-06-21 06:53] LABS: Anion Gap 6 (5-15); BUN 17 mg/dL (7-18); BUN/Creat Ratio 23.2 RATIO (10-20); Calcium,Total 8.6 mg/dL (8.5-10.1); Chloride 102 mmol/L (98-107); Creatinine, Serum 0.73 mg/dL (0.70-1.30); EST Glomerular Filtration Rate 116 mL/min (>60); Est Glom Filt Rate - Afr Amer 140 mL/min (>60); Estimated Creatinine Clearance 128.61 ml/min; Glucose 112 mg/dL (74-106); Potassium 4.9 mmol/L (3.5-5.1); Sodium Level 141 mmol/L (136-145)
[2018-06-21] MEDS: Ipratropium/Albuterol Sulfate 3 ML AMPUL.NEB INHALATION ×3 (07:02→15:28)
[2018-06-21] MEDS: Aspirin 81 MG TAB.CHEW PO (07:25)
--- NOTE | 2018-06-21 08:38 | CPS ---
PATIENT DOING PEP THERAPY ON OWN
[2018-06-21] MEDS: Furosemide 40 MG/4 ML Vial IV (08:50)
[2018-06-21] MEDS: Metoprolol(XL)Succ 25 MG Tablet 12.5 MG PO (08:55)
[2018-06-21] MEDS: Famotidine 20 MG Tablet PO (08:56)
[2018-06-21] MEDS: Lisinopril 20 MG Tablet PO (08:56)
[2018-06-21] MEDS: guaiFENesin 1,200 MG Tablet 1200 MG PO (08:56)
[2018-06-21] MEDS: Enoxaparin 40 MG/0.4 ML Syringe SC (08:57)
--- NOTE | 2018-06-21 11:49 | DCINST_ITS ---
- Discharge Diagnoses Current Active Problems: Current Active and Chronic Problems COPD with acute exacerbation (Chronic) Acute respiratory failure with hypoxia (Acute) Tobacco use (Acute) Elevated BP without diagnosis of hypertension (Acute) Overweight (BMI 25.0-29.9) (Chronic) Lower extremity edema (Chronic) You will use the following diet at home:: Cardiac Your food should be the consistency of: Regular Your liquids should be the consistency of: Regular/Thin Discharge Activity: Return to Normal Activity Weight Bearing Status: Weight bearing as tolerated Call your doctor if you observe: Shortness of breath, Swelling in the ankles, Chest pain Allergies/Adverse Reactions: Allergies No Known Allergies Allergy (Verified 06/19/18 15:41) Medications to take at Discharge Albuterol IH (ProAir) [Proair Hfa] 1 - 2 puff INHALATION Q4H PRN PRN #1 inhaler 06/21/18 Aspirin [Aspirin, Baby] 81 mg PO DAILY@0800 #30 tab.chew 06/21/18 Furosemide 40 mg PO DAILY #30 tablet 06/21/18 Guaifenesin [Mucinex] 1,200 mg PO BID #30 tablet 06/21/18 Lisinopril [Zestril] 20 mg PO DAILY #30 tablet 06/21/18 Metoprolol(XL)Succ [Toprol Xl (Beta Rajwinder)] 12.5 mg PO DAILY #30 tablet 06/21/18 predniSONE tablet 40 mg PO DAILY 5 Days #10 tablet 06/21/18 The following prescriptions were given: Albuterol IH (ProAir) [Proair Hfa] 1 - 2 puff INHALATION Q4H PRN PRN #1 inhaler PRN Reason: Shortness Of Breath Aspirin [Aspirin, Baby] 81 mg PO DAILY@0800 #30 tab.chew Furosemide 40 mg PO DAILY #30 tablet Lisinopril [Zestril] 20 mg PO DAILY #30 tablet Metoprolol(XL)Succ [Toprol Xl (Beta Rajwinder)] 12.5 mg PO DAILY #30 tablet predniSONE tablet 40 mg PO DAILY 5 Days #10 tablet Guaifenesin [Mucinex] 1,200 mg PO BID #30 tablet Primary Care Physician: Darrick Arias MD [Primary Care Provider] - Please follow up with your Primary Care Physician in: one week Test Results: Test results from this visit will be discussed in further detail at your follow- up appointment, if applicable. Please Follow Up With: Logan Laws MD When: 1-2 weeks Please Follow Up With: Vinod Gan MD When: 1-2 weeks; will need sleep study also Proposed Discharge Date: 06/21/18
--- NOTE | 2018-06-21 12:28 | NURSING ---
PT AMBULATED IN HALLWAYS ON ROOM AIR SPO2 @90%. PT WALKED THE ENTIRE MS2 HALLWAYS SPO2 DROPPED TO 86% ON ROOM AIR. DURING THE TIME OF ACTIVITY HE DENIES ANY DISTRESS OR SHORTNESS OF BREATH. HE ALSO MAINTAINED HIS ENDURANCE. WHEN HE RETURN TO BED HE WAS AT HIS BASELINE WITH ACTIVITY. HE DENIES ANY DISTRESS AT THIS TIME OR WITH ACTIVITY.
--- NOTE | 2018-06-21 13:25 | DS.PCM_ITS ---
Discharge Date and Diagnosis - Problem List Patient Problems: Active and Suspected Problems Acute respiratory failure with hypoxia (Acute) Tobacco use (Acute) Elevated BP without diagnosis of hypertension (Acute) NIDA (obstructive sleep apnea) (Suspected) Date of Admission: 06/19/18 Date of Discharge: 06/21/18 - Primary Discharge Diagnosis Active and Suspected Problems Acute respiratory failure with hypoxia (Acute) Tobacco use (Acute) Elevated BP without diagnosis of hypertension (Acute) NIDA (obstructive sleep apnea) (Suspected) - Secondary Discharge Diagnosis Chronic Problems COPD with acute exacerbation (Chronic) Overweight (BMI 25.0-29.9) (Chronic) Lower extremity edema (Chronic) Hospital Course and Treatment Imaging Results: Diagnostic Data Chest X-Ray 06/19/18 15:55 IMPRESSION: Mild cardiomegaly. Lungs are clear. Electronically Signed: Jozef Mendez DO at 16:37 EST Tel , Service support , Chest CTA 06/20/18 09:21 IMPRESSION: 1. Mildly suboptimal exam for pulmonary embolism as above. No large central pulmonary embolism is noted. Negative for thoracic aortic dissection 2. COPD with bibasilar airspace disease suggesting pneumonia 3. Mild emphysematous changes throughout the lungs Electronically Signed: Jozef Mendez DO at 10:44 EST Tel , Service support , Operations: None Procedures: 2-D Echocardiogram Summary of Care Provided: The patient is a 62 year old M with a PMH of obesity and tobacco use. He hadnt seen a doctor since the 1970s. He was admitted with a complaint of worsening shortness of breath for 1 year prior to admission. SOB worsened acutely 2 days prior to admission. He had assisted bilateral lower extremity edema and shortn ess of breath worsened with exertion. He also had a chronic cough which was only occasionally productive. He had had a [address] to [place] over the holidays just prior to admission. He was saturating at 79% on room air in ED on admission. chest x-ray showed mild cardiomegaly but no active lung disease. He was admitted and managed for acute hypoxic respiratory failure due to possible COPD exacerbation. He was initially only requiring about 4 L of oxygen which was titrated down to 0.[address] done ruled out a PE but showed hyperexpansion of his lungs with bilateral airspace disease in the right greater than the left. He was also developing a small right effusion and also had mild emphysematous changes throughout the lungs. 2D echo done showed stage I diastolic dysfunction and EF of 65% as well as stage 1 diastolic dysfunction. Patient's SOB improved significantly after he was diuresed. He remained stable. However, his blood pressure remained very poorly controlled. Patient had not been previously diagnosed hypertensive. He was started on lisinopril which was titrated up to 20 mg daily and he was also given a prescription for p.o. metoprolol 12.5 mg daily. On day of discharge, he had a walking pulse oximetry, his walking pulse ox dropped to 86% on room air. He therefore required home oxygen. He was discharged home with a prescription for p.o. levofloxacin, furosemide, lisinopril, metoprolol and prednisone. he is to follow up with his PCP. He was also referred to cardiology and pulmonology on discharge to follow up for newly diagnosed heart failure with preserved EF and probable COPD. Patient seen and examined prior to discharge. He felt well and wanted to be discharged. He had no complaints and felt well. He denied any fever, chills, cough, chest pain, palpitations, abdominal pain, diarrhea or vomiting. Review of systems was otherwise negative. o/e: Vital Signs Height 6 ft 3 in Weight: 243 lb 9.6 oz Weight in Pounds 243.6 lbs Pulse Ox [AMBULATION with 95 Oxygen] Pulse Ox [AMBULATING on Room 84 Air] Pulse Ox [At REST on Room Air] 91 Pulse Ox 92 Temperature 98.7 F Pulse Rate 95 Respiratory Rate 18 Blood Pressure [BP] 161/85 Blood Pressure 149/78 Blood Pressure Position [BP] Semi-Fowlers Blood Pressure Position Semi-Fowlers []General: Alert, Oriented x3, Cooperative, No apparent distress HEENT: Atraumatic, PERRLA, EOMI, Normocephalic Oral: Moist Mucosa Neck: Supple, No JVD, Negative Carotid Bruits Lungs: - -mildly decreased breath sounds bibasally, no wheezing or crackles. On 0.5L of oxygen. Cardiovascular: Regular rate, Regular Rhythm, Normal S1, Normal S2, No murmurs Abdomen: Bowel Sounds Present, Soft, Non Tender, Non-Distended, No Hepato- splenomegaly Extremities: No clubbing, No cyanosis, Capillary Refill Less than 3 Seconds, - - bilateral 2+ LE pitting pedal edema. Skin: No rashes, No breakdown Musculoskeletal: No Tenderness to Palpation of Joints or Extremities Lymphatic: No Cervical, Supraclavicular, or Inguinal Adenopathy Neurological: Cranial nerves II-XII grossly intact, Neuro grossly intact, Motor Exam 5/5 strength throughout Psych/Mental Status: Normal Affect, Appropriate Plan as detailed above. He is to go home on home oxygen. He was also counselled strongly to quit smoking Patient Problems: Active and Suspected Problems Acute respiratory failure with hypoxia (Acute) Tobacco use (Acute) Elevated BP without diagnosis of hypertension (Acute) NIDA (obstructive sleep apnea) (Suspected) - Physical Exam Vital Signs Temp Pulse Resp BP Pulse Ox 98.7 F 95 18 149/78 H 91 06/21/18 10:03 06/21/18 11:19 06/21/18 11:19 06/21/18 10:03 06/21/18 12:47 Oxygen Flow Rate (L/min) [ 1 AMBULATION with Oxygen] Oxygen Flow Rate (L/min) 1 Oxygen Delivery Method Nasal Cannula Weight: 243 lb 9.6 oz Body Mass Index (BMI) 30.4 Intake and Output for Last 24 Hours 06/19/18 06/20/18 06/21/18 23:59 23:59 23:59 Intake Total 970 / 970 1787 / 1787 1350 / 1350 Output Total 750 / 750 4779 / 4779 4150 / 4150 Balance 220 / 220 -2992 / -2992 -2800 / -2800 Microbiology Past 72 Hours 06/19/18 19:10 Respiratory Panel (PCR) - Final Mucosa - Nasopharyngeal Laboratory Tests Past 24 Hrs 06/21/18 06/21/18 06:00 06:00 WBC 10.1 RBC 5.83 Hgb 17.0 H Hct 54.2 H MCV 93.0 MCH 29.2 MCHC 31.4 L RDW 13.9 RDW Differential 46.1 H Plt Count 230 MPV 12.0 Immature Gran % (Auto) 0.100 Neut % (Auto) 84.7 H Lymph % (Auto) 9.1 L [place] % (Auto) 6.0 Eos % (Auto) 0.0 Baso % (Auto) 0.1 Absolute Neuts (auto) 8.5 H Absolute Lymphs (auto) 0.92 Total Counted Not Reportable Sodium 141 Potassium 4.9 Chloride 102 Carbon Dioxide 33.0 H Anion Gap 6 BUN 17 Creatinine 0.73 Estim Creat Clear Calc 128.61 Est GFR (MDRD) Af Amer 140 Est GFR (MDRD) Non-Af 116 BUN/Creatinine Ratio 23.2 H Glucose 112 H Calcium 8.6 Interpretation Summary Normal LV size. Left ventricular systolic function is normal. The estimated ejection fraction is 65 %. Stage 1 diastolic dysfunction. Mild focal aortic valve calcification. Moderate concentric left ventricular hypertrophy. Discharge Diet: Low fat/ Low Cholesterol Discharge Activity: Return to Normal Activity Weight Bearing Status: Weight bearing as tolerated Call your doctor if you observe: Shortness of breath, Swelling in the ankles, Chest pain Home Medications: Medications to take at Discharge Albuterol IH (ProAir) [Proair Hfa] 1 - 2 puff INHALATION Q4H PRN PRN #1 inhaler 06/21/18 Aspirin [Aspirin, Baby] 81 mg PO DAILY@0800 #30 tab.chew 06/21/18 Furosemide 40 mg PO DAILY #30 tablet 06/21/18 Guaifenesin [Mucinex] 1,200 mg PO BID #30 tablet 06/21/18 Lisinopril [Zestril] 20 mg PO DAILY #30 tablet 06/21/18 Metoprolol(XL)Succ [Toprol Xl (Beta Rajwinder)] 12.5 mg PO DAILY #30 tablet 06/21/18 predniSONE tablet 40 mg PO DAILY 5 Days #10 tablet 06/21/18 Following Prescrptions Were Given to Patient: Albuterol IH (ProAir) [Proair Hfa] 1 - 2 puff INHALATION Q4H PRN PRN #1 inhaler PRN Reason: Shortness Of Breath Aspirin [Aspirin, Baby] 81 mg PO DAILY@0800 #30 tab.chew Furosemide 40 mg PO DAILY #30 tablet Lisinopril [Zestril] 20 mg PO DAILY #30 tablet Metoprolol(XL)Succ [Toprol Xl (Beta Rajwinder)] 12.5 mg PO DAILY #30 tablet predniSONE tablet 40 mg PO DAILY 5 Days #10 tablet Guaifenesin [Mucinex] 1,200 mg PO BID #30 tablet Primary Care Physician: Darrick Arias MD [Primary Care Provider] - Please follow up with your Primary Care Physician in: one week Please Follow Up With: Logan Laws MD When: 1-2 weeks Please Follow Up With: Vinod Gan MD When: 1-2 weeks; will need sleep study also Disposition: Home Minutes spent on discharge:: 40 Patient Condition:: Stable Medical Necessity - Tobacco Use Smoking Status: Current every day smoker Tobacco Use: Cigarettes Meaningful Use Info Meaningful Use Diagnoses (Choose all that apply): CHF - CHF JEFF/ARB ordered at discharge?: Yes Documented LVEF (%): 65 Code Visit Inpatient E&M: 53753 Disch Hosp
--- NOTE | 2018-06-21 14:00 | CASEMGMT ---
Addendum entered by Eric Hicks 06/21/18 14:25: Call to Anne @ [employer], notified of need for Home Oxygen. Portable tank will be delivered. Dorene CHU RN AC Original Note: RUTHIE CARLISLE Note Home oxygen ordered through [employer]. Script, Face sheet, testing faxed to . Rodrigo CHU CM
== END 2018-06-21 16:00 | disposition home or self-care (01) | DRG 189 ==
LOC: ED 17:09 → MS2 17:33
PROVIDERS: Admitting Provider Family Medicine; Emergency Provider Emergency Medicine; Family Provider Family Medicine; PCP Family Medicine; Visit Provider Student in an Organized Health Care Education/Training Program
DX: J96.01 Acute respiratory failure with hypoxia (principal); I50.30 Unspecified diastolic (congestive) heart failure; I11.0 Hypertensive heart disease with heart failure; G47.33 Obstructive sleep apnea (adult) (pediatric); R03.0 Elevated blood-pressure reading, without diagnosis of hypertension; Z68.28 Body mass index [BMI] 28.0-28.9, adult; F17.210 Nicotine dependence, cigarettes, uncomplicated; E66.9 Obesity, unspecified
CPT/HCPCS: 36415; 71045; 71275; 80048; 80061; 83735; 83880; 84484; 85025; 85379; 87633; 93005; 93306; 94640; 94667; 99283; 99406; J7030; Q9967; A4216; J1940

== ENCOUNTER → 2018-07-05 09:43 | Outpatient (CLI) | payer OTHER, SELFPAY ==
[2018-06-28 11:11] VITALS: BMI 29.0
--- NOTE | 2018-07-06 11:24 | PFTCOMP ---
COMPLETE PULMONARY FUNCTION TEST INTERPRETATION Brief HPI: Patient is a 62 year old male, currently under the care of Dr. Swain, who presents to [facility] for complete pulmonary function tests secondary to diagnosis of dyspnea. Respiratory therapist reports good effort and reproducible results. Interpretation: Forced expiration spirometry shows a very severe large airways obstructive ventilatory defect with an FEV1 of 26% predicted. There is a significant bronchodilator response in FVC by strict ATS criteria. Spirograms are of good quality and plateau slowly, indicating slowly emptying areas of the lungs. The respiratory flow volume loop shows decreased expiratory flow rates at all lung volumes consistent with airway obstruction. Lung volumes by body plethysmography show an elevated total lung capacity at 9.91 L, 126% predicted. FRC and RV are elevated out of proportion. Lung volume measurements are consistent with hyperinflation and air-trapping. Diffusion capacity by carbon monoxide is decreased at 66% predicted. The airway resistance is elevated. No previous pulmonary function tests were available for review. Impression: Partially reversible very severe large airways obstructive ventilatory defect resulting in air trapping with hyperinflation and a symmetric reduction of diffusion capacity, consistent with a diagnosis of advanced COPD.
--- OUTSIDE RECORDS SUMMARY | 2018-09-06 11:19 | XMS RPT_ITS ---
:1955 Author Organization OHIP Support Name Relationship Address Phone [employer] Unavailable [address] + [place] [address] TESSA, REUBEN Unavailable [address] + [place] [address] [employer] Unavailable [address] + [place] [address] TESSA, REUBEN Unavailable [address] + [place] [address] [employer] Unavailable [address] + [place] [address] TESSA, REUBEN Unavailable [address] + [place] [address] [employer] Unavailable [address] + [place] [address] TESSA, REUBEN Unavailable [address] + [place] [address] [employer] Unavailable [address] + [place] [address] TESSA, REUBEN Unavailable [address] + [place] [address] [employer] Unavailable [address] + [place] [address] TESSA, REUBEN Unavailable [address] + [place] [address] [employer] Unavailable [address] + [place] [address] TESSA, REUBEN Unavailable [address] + [place] [address] [employer] Unavailable [address] + [place] [address] TESSA, REUBEN Unavailable [address] + [place] [address] Care Team Providers Name Role Phone [facility], Darrick Primary Care Unavailable White, Jasmyn Admitting Unavailable Koram, Ana She Attending Unavailable White, Jasmyn Admitting Unavailable White, Jasmyn Attending Unavailable Juana, Darrick Primary Care Unavailable White, Jasmyn Consulting Unavailable White, Jasmyn Admitting Unavailable Koram, Ana She Attending Unavailable Juana, Darrick Primary Care Unavailable Koram, Ana She Consulting Unavailable White, Jasmyn Admitting Unavailable Koram, Ana She Attending Unavailable Juana, Darrick Primary Care Unavailable Koram, Ana She Consulting Unavailable Milan Swain Attending Unavailable Juana, Darrick Referring Unavailable Milan Swain Attending Unavailable Milan Swain Referring Unavailable Miedel, Julissa Primary Care Unavailable Milan Swain Attending Unavailable Milan Swain Referring Unavailable Miedel, Julissa Primary Care Unavailable Logan Laws Attending Unavailable White, Jasmyn Referring Unavailable PROBLEMS PROBLEMS DATE TYPE CONDITION / CODE ATTENDING STATUS SOURCE 06/28/2018 Unknown R06.02 - Shortness Milan Swain Active [facility] of breath / Community R06.02(ICD-10) Hospital Repository 06/28/2018 Unknown I10 - Essential Milan Swain Active [facility] (primary) [facility] hypertension / Hospital I10(ICD-10) Repository 06/28/2018 Unknown I50.30 - Milan Swain Active [place] Unspecified [facility] (congestive) heart Repository failure / I50.30(ICD-10) 06/28/2018 Unknown Z72.0 - Tobacco Milan Swain Active [place] use / Community Z72.0(ICD-10) Hospital Repository 06/28/2018 Unknown G47.33 - Milan Swain Active [facility] Obstructive sleep Community apnea (adult) Hospital (pediatric) / Repository G47.33(ICD-10) 06/28/2018 Unknown R60.0 - Localized Milan Swain Active [place] edema / Community R60.0(ICD-10) Hospital Repository PROCEDURES PROCEDURES No Procedure Records FoundRESULTS RESULTS PULMONARY FUNCTION Observed: 07/06/2018 Status: F Source: [place] REPORT COMP 2:33 PM [facility] REPOSITORY [facility] Pulmonary Services/Neurology [address] [place] [address] MR#: [id number] Acct: [id number] Name: CAROL ZARATE Rep #: [id number] : 1955 62 From: Vinod Gan MD Referring Dr: Milan Swain MD Status: REG CLI Ordering Dr: Date: Location: PS Sex: M C COMPLETE PULMONARY FUNCTION TEST INTERPRETATION Brief HPI: Patient is a 62 year old male, currently under the care of Dr. Swain, who presents to [facility] for complete pulmonary function tests secondary to diagnosis of dyspnea. Respiratory therapist reports good effort and reproducible results. Interpretation: Forced expiration spirometry shows a very severe large airways obstructive ventilatory defect with an FEV1 of 26% predicted. There is a significant bronchodilator response in FVC by strict ATS criteria. Spirograms are of good quality and plateau slowly, indicating slowly emptying areas of the lungs. The respiratory flow volume loop shows decreased expiratory flow rates at all lung volumes consistent with airway obstruction. Lung volumes by body plethysmography show an elevated total lung capacity at 9.91 L, 126% predicted. FRC and RV are elevated out of proportion. Lung volume measurements are consistent with hyperinflation and air-trapping. Diffusion capacity by carbon monoxide is decreased at 66% predicted. The airway resistance is elevated. No previous pulmonary function tests were available for review. Impression: Partially reversible very severe large airways obstructive ventilatory defect resulting in air trapping with hyperinflation and a symmetric reduction of diffusion capacity, consistent with a diagnosis of advanced COPD. 07/06/18 1433 <Electronically signed by Vinod Gan MD> Date Vinod Gan MD CC: Vinod Gan MD; Milan Swain MD; Julissa Zhou MD Date Dictated: 07/06/18 1124 Date Transcribed: 07/06/18 1124 Log Buyer: TARSHA Signed CARDIOLOGY VISIT Observed: 06/28/2018 Status: F Source: [place] REPORT 11:[address] [facility] REPOSITORY [facility] [address] [place] [address]. [address] [place] [address] OFFICE VISIT Date of Service: 06/28/18 MR#: [id number] Acct: [id number] Name: TESSACAROL Rep #: [id number] : 1955 Provider: Milan Swain MD Age/Sex: 62/M Location: [facility] Status: Signed HPI HPI Chief Complaint: Hypertension, new onset biventricular failure Details: CAROL ZARATE, is a 62 M, nondiabetic, with a history of hypertension, unknown cholesterol, unknown obstructive sleep apnea, who presents to the office today for follow-up after hospitalization in early June 2017 for new onset congestive heart failure, shortness of breath and lower extremity edema in the face of normal LV function and stage I diastolic dysfunction. Patient has a greater than 51-nydb-odcv smoking history, quit around a week ago. He noted new onset shortness of breath, worsening lower extremity edema, and dyspnea on exertion. This precipitated a visit to [facility] ER where an EKG was performed which showed sinus tachycardia rate of 111 bpm, no acute changes, and septal Q waves. Patient underwent 2D echo with Doppler on 06/20/17 which showed an EF of 65%, stage I diastolic dysfunction, unable to quantitate RVSP. Patient was given diuretic therapy, beta-rajwinder therapy, but no stress test was performed. His edema completely resolved and he was subsequently discharged for follow-up in our office. Since discharge he is doing rather well, and denies any chest pain, angina, shortness of breath or dyspnea on exertion. He is taking and tolerating his medicines well. In our office today's blood pressure is 170/80, pulse is 104 and regular. His physical exam demonstrates clear lungs bilaterally, regular rate and rhythm, a 2/6 systolic ejection murmur best heard at the upper right sternal border, no diastolic murmurs, no edema noted. EKG is as above. Lipids are pending. Intake Vital Signs06/28/18 Height 6 ft 3 in 06/28/18 Weight: 232 lb 06/28/18 Body Mass Index (BMI) 29.0 06/28/18 Blood Pressure 170/80 H Intake Visit Reasons: Diastolic heart failure (Miedel) Commercial Account Manager Required: No Is patient in pain?: No Allergies No Known Allergies Allergy (Verified 06/28/18 11:18) Medications Albuterol IH (ProAir) [Proair Hfa] 1 - 2 puff INHALATION Q4H PRN PRN #1 inhaler 06/21/18 [Rx Confirmed 06/27/18] Aspirin [Aspirin, Baby] 81 mg PO DAILY@0800 #30 tab.chew 06/21/18 [Rx Confirmed 06/28/18] Furosemide 40 mg PO DAILY #30 tab 06/21/18 [Rx Confirmed 06/27/18] Guaifenesin [Mucinex] 1,200 mg PO BID #30 tab 06/21/18 [Rx Confirmed 06/28/18] Levofloxacin 750 mg PO DAILY #7 tab 06/21/18 [Rx Confirmed 06/28/18] Lisinopril [Zestril] 20 mg PO DAILY #30 tab 06/21/18 [Rx Confirmed 06/27/18] carvedilol 6.25 mg tablet 6.25 mg PO BID #60 tab 06/28/18 [Rx Confirmed 06/28/18] PFSH Medical History Shortness of breath (Chronic) Essential hypertension (Chronic) Diastolic congestive heart failure (Acute) COPD with acute exacerbation (Chronic) Acute respiratory failure with hypoxia (Acute) Tobacco use (Chronic) NIDA (obstructive sleep apnea) (Suspected) Overweight (BMI 25.0-29.9) (Chronic) Lower extremity edema (Chronic) Family History Mother Bone cancer Father Emphysema/COPD Social History Smoking Status: Former smoker quit date: 06/19/18 pack-years: 40 ROS Const Const: Positive for other (Referred by Dr. Franck Jay: to ER 1 week ago CHF, edema); negative for fatigue, weakness, body ache, fever(s), headache(s), chills, frequent falls, night sweats, daytime sleepiness, difficulty sleeping, excessive sweating, weight gain, weight loss, increased appetite, poor appetite or anorexia Eyes Eyes: Negative for blind spots, loss of peripheral vision, transient loss of vision, blurry vision, change in vision, double vision, floaters, tunnel vision or other ENT ENT: Negative for headache(s), dizziness, hearing loss, tinnitus, Nosebleed/epistaxis, balance problems, post nasal drip, lip swelling, tongue swelling, bleeding gums, hoarseness, neck pain, dry mouth or other Cardio Chest Pain: No Palpitations: Yes (Had sinus tachycardia on ekg) feels like its: fast Edema: None (1 wek ago states legs were huge) Muscle aches with walking: None Resp Respiratory: Positive for other (Was short of breath a week ago but now: on Lasix); negative for SOB with activity, SOB at rest, SOB orthopnea\SOB lying down, Cough, Coughing up blood/hemoptysis, chest congestion, pain on inspiration, snoring, stridor, wheezing, crackles or paroxysmal nocturnal dyspnea GI GI: Negative nausea, vomiting, heartburn, constipation, belching, bloating, cramping, vomiting blood/hematemesis, bright, red blood in stools, black,tarry stools, loose stools, Difficulty Swallowing or other : Negative for hematuria, frequent nighttime urination/ nocturia, erectile dysfunction or abnormal vaginal bleeding Musc Musc: Negative for balance problems, muscle aches/ myalgia, muscle weakness or joint pain Skin Skin: Negative redness, non-healing lesions, rash, unusual bruising, skin ulcer, wounds, jaundice or other Neuro Neuro: Negative for weakness, headache(s), frequent falls, blurry vision, double vision, dizziness, lightheadedness, near syncope, syncope, orthostatic symptoms, confusion, memory loss, restless legs, vertigo, seizures, lack of coordination or other Darrian Hematologic/Lymphatic: Negative for easy bleeding, easy bruising, enlarged lymph nodes or other Endo Endo: Negative for fatigue, excessive sweating, cold intolerance, heat intolerance, flushing, increased thirst/drinking, increased hunger, hair loss, hair growth or other Psych Psych: Negative for anxiety, depression, thoughts of harming anyone, thoughts of harming yourself, visual hallucinations, panic attacks or audible hallucinations Allergy Allergy/Immunology: Negative for lip swelling, Negative for tongue swelling, Negative for rash, Negative for throat swelling, Negative for hives Cardiology Exam Const Appearance: cooperative, healthy appearing and no acute distress Nutritional Appearance: well nourished Orientation: alert, oriented x3 and oriented to person Head Head: normal to inspection, atraumatic and normocephalic Nose: external nose normal Face and Sinus: face symmetric Mouth: oral mucosae normal Eyes General: appearance normal, both eyes and all related structures Eyelids: eyelids normal Conjunctivae: conjunctivae normal Pupils: PERRL and normal by confrontation EOM: EOM intact bilaterally Neck Neck: normal visual inspection and full ROM Carotids: normal carotid upstroke Chest Chest inspection: normal inspection of the chest Auscultation: Bilateral: Clear to Auscultation Cardio Palpation: normal PMI Rate: regular rate Rhythm: regular rhythm Heart sounds: S1 normal and S2 normal GI GI: normal to inspection, no hepatosplenomegaly and bowel sounds present Neuro General: alert, oriented x3, awake, CN's II-XI intact bilaterally and moves all extremities Skin Skin: no rashes or lesions noted Extremities Pulses: Normal: Right Femoral Pulse, Left Femoral Pulse, Right Dorsalis Pedis Pulse, Left Dorsalis Pedis Pulse, Right Posterior Tibial Pulse, Left Posterior Tibial Pulse, Right Radial Pulse, Left Radial Pulse Lower Extremity Edema: None: Bilateral Psych Psychological: normal affect Assessment AND Plan 1. Essential hypertension I10 Plan 1. Hypertension: The patient appears to have presented with hypertensive urgency superimposed on pulmonary hypertension and right-sided heart failure. Patient's blood pressure is not optimized at this time. Recommend discontinuation of low- dose Lopressor, and switching him to Coreg 6.25 mg p.o. twice daily and continuing his Lasix and lisinopril. Patient will return in 2 weeks time for a blood pressure check. Given the patient's presentation of new onset heart failure, superimposed on normal LV function, and now that he is medically optimized, I recommend a stress echocardiogram to evaluate for possible ischemia particularly in light of his greater than 27-fssj-fdua smoking history. If this is grossly abnormal, the patient may require diagnostic left and right coronary angiogram. In the meantime I recommend continuing baby aspirin. Should he require catheterization he will require addition of Plavix. Orders Orders: 2. Shortness of breath R06.02 Plan 2. Shortness of breath: Given the patient's greater than 15-tzww-jwng smoking history, I recommended that he undergo pulmonary function test. He has an appointment with Dr. Gan in the next few weeks. Orders Orders: 3. NIDA (obstructive sleep apnea) G47.33 Plan 3. Obstructive sleep apnea: The patient reports that he is an excessive snorer, and has evidence of right-sided heart failure on initial presentation. Patient also complains of daytime somnolence, but has not woken himself up with his own snoring. To complete his pulmonary hypertension picture, I recommended to sleep study. If it is abnormal I recommended he proceed with CPAP or BiPAP pending Dr. Gan's evaluation. 4. Hyperlipidemia: Recommend obtaining a fasting lipid profile. Would recommend treatment with statin based medications of his LDL is greater than 130. 5. Return office in 6 months. This note was generated using a voice recognition system and there may be incorrect words, spelling or punctuation that were not noted when reviewing the office note prior to saving. Orders Orders: Plan Detail Other Orders Orders: Other Medications New: Discontinued: metoprolol succinate ER Discontinued Reason:12.5 mg (1/2 x 25 mg) PO DAILY 30 tabs 1RF Order Changed Follow Up +6M (Swain) +2 weeks (BP CHECK) Coding Level of Care Code Off vis,new,level 4 Diagnoses Essential hypertension I10 Shortness of breath R06.02 NIDA (obstructive sleep apnea) G47.33 Coding Level of Care Code Off vis,new,level 4 Diagnoses Essential hypertension I10 Shortness of breath R06.02 NIDA (obstructive sleep apnea) G47.33 Supplemental Info Supplemental Information Labs LDL Cholesterol 81 mg/dL (0-130) 06/20/18 HDL Cholesterol 34 mg/dL (40-) L 06/20/18 Triglycerides 65 mg/dL (-199) 06/20/18 VLDL Cholesterol 13 mg/dL (5-40) 06/20/18 Diagnostics Electrocardiogram 06/19/18 Echocardiogram 06/19/18 Chest X-Ray 06/19/18 06/28/18 1156 <Electronically signed by Milan Swain MD> Date Milan Swain MD Cosign Signature: Date (if applicable) CC: Julissa Zhou MD 12 LEAD ELECTROCARDIOGRAM Observed: 06/22/2018 Status: F Source: [place] 2:[address] [facility] REPOSITORY [facility] [place] [address] 12 Lead EKG 06/19/18 1605 MR#: [id number] Acct: [id number] Name: CAROL ZARATE Rep #: [id number] : 1955 62 From: Jean Blankenship MD Attending Dr: Ana Nova MD Status: DIS IN Ordering Dr: Andrew Crawley MD Date: 06/19/18 [place] [facility] Sex: M C Admitted: 06/19/18 Test Reason : SOB Blood Pressure : / mmHG Vent. Rate : 111 BPM Atrial Rate : 111 BPM P-R Int : 148 ms QRS Dur : 074 ms QT Int : 358 ms P-R-T Axes : 070 031 069 degrees QTc Int : 486 ms Sinus tachycardia Otherwise normal ECG Confirmed by KRZYSZTOF WHITNEY, JEAN ([id number]), market editor KARLA BARAJAS ([id number]) on 06/22/2018 2:14:46 PM Referred By: Confirmed By:JEAN BLANKENSHIP MD 06/22/18 1414 Date Jean Blankenship MD CC: Andrew Crawley MD; Ana Nova MD; Darrick Arias MD Signed DISCHARGE SUMMARY Observed: 06/21/2018 Status: F Source: [place] 2:[address] [facility] REPOSITORY [facility] Medical Records Department [address] [place] [id number] Discharge Summary 06/21/18 1304 MR#: [id number] Acct: [id number] Name: CAROL ZARATE Rep #: [id number] : 1955 62 From: Ana Nova MD PCP: Darrick Arias MD Status: ADM IN Y [place] [facility] [id number] Discharge Date and Diagnosis - Problem List Patient Problems: Active and Suspected Problems Acute respiratory failure with hypoxia (Acute) Tobacco use (Acute) Elevated BP without diagnosis of hypertension (Acute) NIDA (obstructive sleep apnea) (Suspected) Date of Admission: 06/19/18 Date of Discharge: 06/21/18 - Primary Discharge Diagnosis Active and Suspected Problems Acute respiratory failure with hypoxia (Acute) Tobacco use (Acute) Elevated BP without diagnosis of hypertension (Acute) NIDA (obstructive sleep apnea) (Suspected) - Secondary Discharge Diagnosis Chronic Problems COPD with acute exacerbation (Chronic) Overweight (BMI 25.0-29.9) (Chronic) Lower extremity edema (Chronic) Hospital Course and Treatment Imaging Results: Diagnostic Data Chest X-Ray 06/19/18 15:55 IMPRESSION: Mild cardiomegaly. Lungs are clear. Electronically Signed: Jozef DO Vanessa at 16:37 EST Tel , Service support , Chest CTA 06/20/18 09:21 IMPRESSION: 1. Mildly suboptimal exam for pulmonary embolism as above. No large central pulmonary embolism is noted. Negative for thoracic aortic dissection 2. COPD with bibasilar airspace disease suggesting pneumonia 3. Mild emphysematous changes throughout the lungs Electronically Signed: Jozef Mendez DO at 10:44 EST Tel , Service support , Operations: None Procedures: 2-D Echocardiogram Summary of Care Provided: The patient is a 62 year old M with a PMH of obesity and tobacco use. He hadnt seen a doctor since the 1970s. He was admitted with a complaint of worsening shortness of breath for 1 year prior to admission. SOB worsened acutely 2 days prior to admission. He had assisted bilateral lower extremity edema and shortness of breath worsened with exertion. He also had a chronic cough which was only occasionally productive. He had had a [address] to [place] over the holidays just prior to admission. He was saturating at 79% on room air in ED on admission. chest x-ray showed mild cardiomegaly but no active lung disease. He was admitted and managed for acute hypoxic respiratory failure due to possible COPD exacerbation. He was initially only requiring about 4 L of oxygen which was titrated down to 0.5 L [address] done ruled out a PE but showed hyperexpansion of his lungs with bilateral airspace disease in the right greater than the left. He was also developing a small right effusion and also had mild emphysematous changes throughout the lungs. 2D echo done showed stage I diastolic dysfunction and EF of 65% as well as stage 1 diastolic dysfunction. Patient's SOB improved significantly after he was diuresed. He remained stable. However, his blood pressure remained very poorly controlled. Patient had not been previously diagnosed hypertensive. He was started on lisinopril which was titrated up to 20 mg daily and he was also given a prescription for p.o. metoprolol 12.5 mg daily. On day of discharge, he had a walking pulse oximetry, his walking pulse ox dropped to 86% on room air. He therefore required home oxygen. He was discharged home with a prescription for p.o. levofloxacin, furosemide, lisinopril, metoprolol and prednisone. he is to follow up with his PCP. He was also referred to cardiology and pulmonology on discharge to follow up for newly diagnosed heart failure with preserved EF and probable COPD. Patient seen and examined prior to discharge. He felt well and wanted to be discharged. He had no complaints and felt well. He denied any fever, chills, cough, chest pain, palpitations, abdominal pain, diarrhea or vomiting. Review of systems was otherwise negative. o/e: Vital Signs Height 6 ft 3 in []General: Alert, Oriented x3, Cooperative, No apparent distress HEENT: Atraumatic, PERRLA, EOMI, Normocephalic Oral: Moist Mucosa Neck: Supple, No JVD, Negative Carotid Bruits Lungs: - -mildly decreased breath sounds bibasally, no wheezing or crackles. On 0.5L of oxygen. Cardiovascular: Regular rate, Regular Rhythm, Normal S1, Normal S2, No murmurs Abdomen: Bowel Sounds Present, Soft, Non Tender, Non-Distended, No Hepato-splenomegaly Extremities: No clubbing, No cyanosis, Capillary Refill Less than 3 Seconds, - - bilateral 2+ LE pitting pedal edema. Skin: No rashes, No breakdown Musculoskeletal: No Tenderness to Palpation of Joints or Extremities Lymphatic: No Cervical, Supraclavicular, or Inguinal Adenopathy Neurological: Cranial nerves II-XII grossly intact, Neuro grossly intact, Motor Exam 5/5 strength throughout Psych/Mental Status: Normal Affect, Appropriate Plan as detailed above. He is to go home on home oxygen. He was also counselled strongly to quit smoking Patient Problems: Active and Suspected Problems Acute respiratory failure with hypoxia (Acute) Tobacco use (Acute) Elevated BP without diagnosis of hypertension (Acute) NIDA (obstructive sleep apnea) (Suspected) - Physical Exam Vital Signs Temp Pulse Resp BP Pulse Ox 98.7 F 95 18 149/78 H 91 06/21/18 10:03 06/21/18 11:19 06/21/18 11:19 06/21/18 10:03 06/21/18 12:47 Oxygen Flow Rate (L/min) [ 1 AMBULATION with Oxygen] Oxygen Flow Rate (L/min) 1 Oxygen Delivery Method Nasal Cannula Weight: 243 lb 9.6 oz Body Mass Index (BMI) 30.4 Intake and Output for Last 24 Hours Intake Total 970 / 970 1787 / 1787 1350 / 1350 Output Total 750 / 750 4779 / 4779 4150 / 4150 Balance 220 / 220 -2992 / -2992 -2800 / -2800 Microbiology Past 72 Hours 06/19/18 19:10 Respiratory Panel (PCR) - Final Mucosa - Nasopharyngeal Laboratory Tests Past 24 Hrs WBC 10.1 RBC 5.83 Hgb 17.0 H Hct 54.2 H MCV 93.0 MCH 29.2 MCHC 31.4 L RDW 13.9 Interpretation Summary Normal LV size. Left ventricular systolic function is normal. The estimated ejection fraction is 65 %. Stage 1 diastolic dysfunction. Mild focal aortic valve calcification. Moderate concentric left ventricular hypertrophy. Discharge Diet: Low fat/ Low Cholesterol Discharge Activity: Return to Normal Activity Weight Bearing Status: Weight bearing as tolerated Call your doctor if you observe: Shortness of breath, Swelling in the ankles, Chest pain Home Medications: Medications to take at Discharge Albuterol IH (ProAir) [Proair Hfa] 1 - 2 puff INHALATION Q4H PRN PRN #1 inhaler 06/21/18 Aspirin [Aspirin, Baby] 81 mg PO DAILY@0800 #30 tab.chew 06/21/18 Furosemide 40 mg PO DAILY #30 tablet 06/21/18 Guaifenesin [Mucinex] 1,200 mg PO BID #30 tablet 06/21/18 Lisinopril [Zestril] 20 mg PO DAILY #30 tablet 06/21/18 Metoprolol(XL)Succ [Toprol Xl (Beta Rajwinder)] 12.5 mg PO DAILY #30 tablet 06/21/18 predniSONE tablet 40 mg PO DAILY 5 Days #10 tablet 06/21/18 Following Prescrptions Were Given to Patient: Albuterol IH (ProAir) [Proair Hfa] 1 - 2 puff INHALATION Q4H PRN PRN #1 inhaler PRN Reason: Shortness Of Breath Aspirin [Aspirin, Baby] 81 mg PO DAILY@0800 #30 tab.chew Furosemide 40 mg PO DAILY #30 tablet Lisinopril [Zestril] 20 mg PO DAILY #30 tablet Metoprolol(XL)Succ [Toprol Xl (Beta Rajwinder)] 12.5 mg PO DAILY #30 tablet predniSONE tablet 40 mg PO DAILY 5 Days #10 tablet Guaifenesin [Mucinex] 1,200 mg PO BID #30 tablet Primary Care Physician: Darrick Arias MD [Primary Care Provider] - Please follow up with your Primary Care Physician in: one week Please Follow Up With: Logan Laws MD When: 1-2 weeks Please Follow Up With: Vinod Gan MD When: 1-2 weeks; will need sleep study also Disposition: Home Minutes spent on discharge:: 40 Patient Condition:: Stable Medical Necessity - Tobacco Use Smoking Status: Current every day smoker Tobacco Use: Cigarettes Meaningful Use Info Meaningful Use Diagnoses (Choose all that apply): CHF - CHF JEFF/ARB ordered at discharge?: Yes Documented LVEF (%): 65 Code Visit Inpatient E AND M: [id number] Disch Hosp 06/21/18 1444 <Electronically signed by Ana Nova MD> Date Ana Nova MD Cosigner Signature (if applicable): Date CC: Vinod Gan MD; Logan Laws MD; Ana Nova MD; Darrick Arias MD Signed DISCHARGE INSTRUCTION Observed: 06/21/2018 Status: F Source: [place]ENNIE 1:[address] [facility] REPOSITORY [facility] Medical Records Department [address] [place] [address] Instructions for Home/Discharge Instructions 06/21/18 1147 MR#: [id number] Acct: [id number] Name: CAROL ZARATE Rep #: [id number] : 1955 62 From: Ana Nova MD PCP: Darrick Arias MD Status: ADM IN ADDENDUM by Ana Nova MD on 06/21/18 at 1312 Script for PO levofloxacin 750mg daily x 7 days added on. 06/21/18 1312 Date Ana Nova MD cc: Darrick Arias MD * Signed - Discharge Diagnoses Current Active Problems: Current Active and Chronic Problems COPD with acute exacerbation (Chronic) Acute respiratory failure with hypoxia (Acute) Tobacco use (Acute) Elevated BP without diagnosis of hypertension (Acute) Overweight (BMI 25.0-29.9) (Chronic) Lower extremity edema (Chronic) You will use the following diet at home:: Cardiac Your food should be the consistency of: Regular Your liquids should be the consistency of: Regular/Thin Discharge Activity: Return to Normal Activity Weight Bearing Status: Weight bearing as tolerated Call your doctor if you observe: Shortness of breath, Swelling in the ankles, Chest pain Allergies/Adverse Reactions: Allergies No Known Allergies Allergy (Verified 06/19/18 15:41) Medications to take at Discharge Albuterol IH (ProAir) [Proair Hfa] 1 - 2 puff INHALATION Q4H PRN PRN #1 inhaler 06/21/18 Aspirin [Aspirin, Baby] 81 mg PO DAILY@0800 #30 tab.chew 06/21/18 Furosemide 40 mg PO DAILY #30 tablet 06/21/18 Guaifenesin [Mucinex] 1,200 mg PO BID #30 tablet 06/21/18 Lisinopril [Zestril] 20 mg PO DAILY #30 tablet 06/21/18 Metoprolol(XL)Succ [Toprol Xl (Beta Rajwinder)] 12.5 mg PO DAILY #30 tablet 06/21/18 predniSONE tablet 40 mg PO DAILY 5 Days #10 tablet 06/21/18 The following prescriptions were given: Albuterol IH (ProAir) [Proair Hfa] 1 - 2 puff INHALATION Q4H PRN PRN #1 inhaler PRN Reason: Shortness Of Breath Aspirin [Aspirin, Baby] 81 mg PO DAILY@0800 #30 tab.chew Furosemide 40 mg PO DAILY #30 tablet Lisinopril [Zestril] 20 mg PO DAILY #30 tablet Metoprolol(XL)Succ [Toprol Xl (Beta Rajwinder)] 12.5 mg PO DAILY #30 tablet predniSONE tablet 40 mg PO DAILY 5 Days #10 tablet Guaifenesin [Mucinex] 1,200 mg PO BID #30 tablet Primary Care Physician: Darrick Arias MD [Primary Care Provider] - Please follow up with your Primary Care Physician in: one week Test Results: Test results from this visit will be discussed in further detail at your follow-up appointment, if applicable. Please Follow Up With: Logan Laws MD When: 1-2 weeks Please Follow Up With: Vinod Gan MD When: 1-2 weeks; will need sleep study also Proposed Discharge Date: 06/21/18 06/21/18 1149 <Electronically signed by Ana Nova MD> Date Ana Nova MD CC: Darrick Arias MD Signed CBC W/DIFF, AUTOMATED Collected: 06/21/2018 Status: F Source: [place]ENN[place] 6:[address] [facility] REPOSITORY TYPE CODE TESTS RESULT OUT OF RANGE REFERENCE UNITS LAB L100.1000 4.4-11.0 K/mm3 Normal WBC 10.1 LAB L100.1200 4.6-6.2 M/mm3 Normal RBC 5.83 LAB L100.1300 13.0-16.5 g/dl High HGB 17.0 LAB L100.1400 40-54 % High HCT 54.2 LAB L100.1500 80-94 fL Normal MCV 93.0 LAB L100.1600 27.0-32.0 pg Normal MCH 29.2 LAB L100.1700 32-36 g/gl Low MCHC 31.4 LAB L100.1810 11.6-14.6 % Normal RDW CV 13.9 LAB L100.1820 35.1-43.9 fl High RDW SD 46.1 LAB L100.1900 150-450 K/mm3 Normal PLT 230 LAB L100.2000 6.2-12.0 fl Normal MPV 12.0 LAB L100.2100 47-70 % High NEUT% 84.7 LAB L100.2200 19-41 % Low LY% 9.1 LAB L100.2300 0-10 % Normal MONO% 6.0 LAB L100.2400 0-5 % Normal EO% 0.0 LAB L100.2500 0-1 % Normal BASO% 0.1 LAB L100.2550 0.0-0.9 % Normal IM GRAN % 0.100 Result Comment: IG% - Immature Granulocytes (promyelocytes, myelocytes and metamyelocytes) > 1% indicates that a LEFT SHIFT is Present. LAB L100.2620 2.0-7.7 X10 3/uL High Absolute Neut 8.5 LAB L100.2720 0.83-4.51 X10 3/ul Normal Absolute Lymph 0.92 Performed By: #### L100.0100 #### [facility] [address] [place], [address] BASIC METABOLIC Collected: 06/21/2018 Status: F Source: [place] PROFILE (BMP) 6:[address] [facility] REPOSITORY TYPE CODE TESTS RESULT OUT OF RANGE REFERENCE UNITS LAB L501.0100 74-106 mg/dL High GLU 112 Result Comment: Fasting Glucose result from 100 to 125 mg/dL suggests IMPAIRED HOMEOSTASIS per A.D.A. criteria. Please note revised GLUCOSE reference range effective 2017. LAB L501.1000 7-18 mg/dL Normal BUN 17 LAB L501.1100 0.70-1.30 mg/dL Normal CREAT,SERUM 0.73 Result Comment: The validity of the calculated GFR AND GFRAA in patients over 70 years has not been determined. Clinical correlation is essential. LAB L501.1110 >60 mL/min Normal EST GFR 116 Result Comment: Non- GFR Calc LAB L501.1115 >60 mL/min Normal EST GFR - AA 140 Result Comment: GFR Calc LAB L501.1255 ml/min Normal Estimated CRCL 128.61 LAB L501.1300 10-20 RATIO High BUN/CRE 23.2 LAB L501.2200 8.5-10 mg/dL .1 CA Normal 8.6 LAB L501.5300 136-14 mmol/L 5 NA Normal 141 LAB L501.5600 3.5-5. mmol/L 1 K Normal 4.9 Result Comment: Slight Hemolysis, Result may be falsely increased. LAB L501.5900 98-107 mmol/L Normal CL 102 LAB L501.6100 21.0-32.0 mmol/L High CO2 33.0 LAB L501.6200 5-15 Normal 6 GAP Performed By: #### L500.2500 #### [facility] [address] [place], [address] ECHOCARDIOGRAM COMPLETE Observed: 06/20/2018 Status: F Source: [place] 10:[address] [facility] REPOSITORY [facility] Cardiovascular Services [address] [place] [address] Echo Complete 06/20/18 0914 MR#: [id number] Acct: [id number] Name: TESSACAROL Nayely Rep #: [id number] : 1955 62 From: Logan Laws MD Attending Dr: Ana Nova MD Status: ADM IN Ordering Dr: Jasmyn Rich Date: 06/19/18 [place] [facility] [place] M C Admitted: 06/19/18 Reason For Study: HTN Procedure This was a 2D Doppler, Color Flow transthoracic echocardiogram. Exam performed portable in patient room. Left Ventricle Normal LV size. Moderate concentric left ventricular hypertrophy. Left ventricular systolic function is normal. The estimated ejection fraction is 65 %. Stage 1 diastolic dysfunction. No regional wall motion abnormalities noted. Atria Normal left atrium. Normal right atrium. Mitral Valve Normal mitral valve. Tricuspid Valve Normal tricuspid valve. Aortic Valve Trisinus/trileaflet aortic valve. Mild focal aortic valve calcification. Pulmonic Valve Normal pulmonic valve. Great Vessels Normal aortic root. The pulmonary artery is normal size. Normal inferior vena cava. Pericardium/Pleural No pericardial effusion. MMode/2D Measurements AND Calculations LVIDd: 4.2 cm IVSd: 1.6 cm LVOT diam: 2.3 cm LVIDs: 2.6 cm LVPWd: 1.7 cm LVOT area: 4.2 cm2 RVDd: 4.5 cm FS: 37.1 % Ao root diam: 3.3 cm LAV(MOD-bp): 68.5 ml LVAd ap4: 29.0 cm2 LAV(MOD-bp) Indexed: 29.4 ml/m2 EDV(MOD-sp4): 82.7 ml LAV(MOD-sp2): 78.9 ml EDV(sp4-el): 83.2 ml LAV(MOD-sp4): 58.1 ml LVAs ap4: 14.9 cm2 ESV(MOD-sp4): 28.1 ml ESV(sp4-el): 26.0 ml EF(MOD-sp4): 66.1 % EF(sp4-el): 68.8 % SV(MOD-sp4): 54.7 ml SV(sp4-el): 57.2 ml LA A4 area: 20.0 cm2 LA dimension(2D): 4.4 cm RA A4 area: 20.4 cm2 Doppler Measurements AND Calculations MV E max ang: 79.9 cm/sec Lat Peak E' Ang: 9.6 cm/sec Med Peak E' Ang: 6.4 cm/sec MV A max ang: 119.9 cm/sec E/E' lat: 8.3 E/E' med: 12.5 MV E/A: 0.67 Ao V2 max: 233.8 cm/sec LV V1 max: 154.1 cm/sec SV(LVOT): 113.5 ml Ao max P.9 mmHg LV V1 max P.5 mmHg Ao V2 mean: 166.1 cm/sec LV V1 mean P.4 mmHg Ao mean P.3 mmHg LV V1 mean: 108.3 cm/sec Ao V2 VTI: 34.6 cm LV V1 VTI: 27.1 cm WATSON(I,D): 3.3 cm2 WATSON(V,D): 2.8 cm2 PA V2 max: 117.3 cm/sec Interpretation Summary Normal LV size. Left ventricular systolic function is normal. The estimated ejection fraction is 65 %. Stage 1 diastolic dysfunction. Mild focal aortic valve calcification. Moderate concentric left ventricular hypertrophy. Ordering Physician: Jasmyn Rich Referring Physician: Darrick Arias Performed By: Yolis Noe, LENNY, RVT 06/20/18 1045 Date Logan Laws MD CC: Jasmyn Rich; Ana Nova MD; Darrick Arias MD Date Dictated: 06/20/18 0914 Date Transcribed: 06/20/181044 Log Buyer: Signed CTA CHEST W/WO Observed: 06/20/2018 Status: F Source: [place] CONTRAST 9:[address] [facility] REPOSITORY [facility] Imaging Services [address] [place] [address] CTA Chest W/WO Contrast MR#: [id number] Acct: [id number] Name: CAROL ZARATE Rep #: [id number] : 1955 M 62 From: [facility] PCP: Darrick Arias MD Status: ADM IN Study: CTA Chest W/WO Contrast Date of Exam: 06/20/18 Exam# [id number] Ordering Dr: Ana Nova MD STUDY: CTA CHEST REASON FOR EXAM: Male, 62 years old. Hypoxia. Acute COPD. RADIATION DOSAGE (If Supplied By Facility): CTDIvol = ( 12.56 ) mGy, DLP = ( 716.50 ) mGycm TECHNIQUE: The examination was performed with the intravenous administration of 100 ml of Isovue 370 contrast material. Post-processing of the angiographic images was performed, with multiplanar reformation and 3D reconstruction. Individualized dose optimization techniques were used for this CT. COMPARISON: None. FINDINGS: Mildly suboptimal exam for pulmonary embolism with contrast bolus in the main pulmonary artery at HU 237. No evidence of a large central pulmonary embolism. Normal thoracic aorta and visualized great vessels. There is no demonstrated aortic dissection. Mild cardiomegaly is noted. Normal pericardium. Scattered small mediastinal lymph nodes. Normal hilar regions. Normal visualized trachea and bronchi. The lungs are hyper expanded, with flattening of the hemidiaphragms. Bibasilar airspace disease is noted; right greater than left. Suspect infection. Developing small right effusion. Mild emphysematous changes throughout the lungs. Normal chest wall structures. Normal osseous structures. Normal visualized upper abdomen. CT/CTA Chest W/WO Contrast IMPRESSION: 1. Mildly suboptimal exam for pulmonary embolism as above. No large central pulmonary embolism is noted. Negative for thoracic aortic dissection 2. COPD with bibasilar airspace disease suggesting pneumonia 3. Mild emphysematous changes throughout the lungs Electronically Signed: Jozef Mendez DO at 10:44 EST Tel , Service support , CC: Ana Nova MD; Darrick Arias MD Log Buyer: Signed BASIC METABOLIC Collected: 06/20/2018 Status: F Source: [place] PROFILE (BMP) 5:[address] [facility] REPOSITORY TYPE CODE TESTS RESULT OUT OF RANGE REFERENCE UNITS LAB L501.0100 74-106 mg/dL High GLU 135 Result Comment: Fasting Glucose result greater than or equal to 126 mg/dL suggests DIABETES MELLITUS per A.D.A. criteria. Please note revised GLUCOSE reference range effective 2017. LAB L501.1000 7-18 mg/dL Normal BUN 13 LAB L501.1100 0.70-1.30 mg/dL Normal CREAT,SERUM 0.75 Result Comment: The validity of the calculated GFR AND GFRAA in patients over 70 years has not been determined. Clinical correlation is essential. LAB L501.1110 >60 mL/min Normal EST GFR 112 Result Comment: Non- GFR Calc LAB L501.1115 >60 mL/min Normal EST GFR - AA 136 Result Comment: GFR Calc LAB L501.1255 ml/min Normal Estimated CRCL 125.19 LAB L501.1300 10-20 RATIO BUN/CRE Normal 17.3 LAB L501.2200 8.5-10 mg/dL Low .1 CA 8.4 LAB L501.5300 136-14 mmol/L 5 NA Normal 142 LAB L501.5600 3.5-5. mmol/L 1 K Normal 5.1 LAB L501.5900 98-107 mmol/L CL Normal 103 LAB L501.6100 21.0-3 mmol/L High 2.0 CO2 33.0 LAB L501.6200 5-15 GAP Normal 6 Performed By: #### L500.2500, L500.4100 #### [facility] [address] [place], [place], [address] LIPID PROFILE Collected: 06/20/2018 Status: F Source: [place] 5:[address] [facility] REPOSITORY TYPE CODE TESTS RESULT OUT OF RANGE REFERENCE UNITS LAB L501.4900 200 mg/dL Normal CHOL 128 Result Comment: <200 mg/dL Desirable 200-240 mg/dL Borderline >240 mg/dL High Risk LAB L501.5000 mg/dL Normal TRIG 65 Result Comment: The drugs N-Acetylcysteine and Metamizole may falsely depress this assay. Serum Triglycerides Reference Interval Normal <150 mg/dL Borderline high 150 - 199 mg/dL High 200 - 499 mg/dL Very High > or = 500 mg/dL LAB L501.6400 mg/dL Low HDL 34 Result Comment: The drugs N-Acetylcysteine and Metamizole may falsely depress this assay. Reference Range HDL <40 mg/dL Low HDL Cholesterol HDL >or= 60 mg/dL High HDL Cholesterol LAB L501.6500 0-130 mg/dL Normal LDL 81 LAB L501.6600 5-40 mg/dL Normal VLDL 13 Performed By: #### L500.2500, L500.4100 #### [facility] [address] [facility] [place], [place], [id number] CBC W/DIFF, AUTOMATED Collected: 06/20/2018 Status: F Source: [place] 5:[address] [facility] REPOSITORY TYPE CODE TESTS RESULT OUT OF RANGE REFERENCE UNITS LAB L100.1000 4.4-11.0 K/mm3 Normal WBC 5.2 LAB L100.1200 4.6-6.2 M/mm3 Normal RBC 5.75 LAB L100.1300 13.0-16.5 g/dl Normal HGB 16.5 LAB L100.1400 40-54 % High HCT 54.7 LAB L100.1500 80-94 fL High MCV 95.1 LAB L100.1600 27.0-32.0 pg Normal MCH 28.7 LAB L100.1700 32-36 g/gl Low MCHC 30.2 LAB L100.1810 11.6-14.6 % Normal RDW CV 13.4 LAB L100.1820 35.1-43.9 fl High RDW SD 46.7 LAB L100.1900 150-450 K/mm3 Normal PLT 213 LAB L100.2000 6.2-12.0 fl Normal MPV 11.9 LAB L100.2100 47-70 % High NEUT% 85.5 LAB L100.2200 19-41 % Low LY% 10.7 LAB L100.2300 0-10 % Normal MONO% 3.6 LAB L100.2400 0-5 % Normal EO% 0.0 LAB L100.2500 0-1 % Normal BASO% 0.2 LAB L100.2550 0.0-0.9 % Normal IM GRAN % 0.000 Result Comment: IG% - Immature Granulocytes (promyelocytes, myelocytes and metamyelocytes) > 1% indicates that a LEFT SHIFT is Present. LAB L100.2620 2.0-7.7 X10 3/uL Normal Absolute Neut 4.5 LAB L100.2720 0.83-4.51 X10 3/ul Low Absolute Lymph 0.56 LAB L100.4500 SMEAR Normal COMMENT Result Comment: LYMPHOPENIA NOTED Performed By: #### L100.0100 #### [facility] [address] [facility] [place], [address] EMERGENCY DEPARTMENT Observed: 06/19/2018 Status: F Source: [place] SUMMARY 10:[address] [facility] REPOSITORY [facility] Medical Records Department [address] [place] [address] Emergency Department Summary 06/19/18 1553 MR#: [id number] Acct: [id number] Name: TESSACAROL Rep #: [id number] : 1955 62 From: Andrew Crawley MD PCP: Darrick Arias MD Status: ADM IN - ER Visit Summary Date of Service: 06/19/18 Chief Complaint: Shortness of breath History of Present Illness: The patient is a 62 M who states he has not seen a doctor since at least the mid 1970s. Patient has a greater than 03-psyv-aias history of smoking. Smokes currently about a pack per day. States he has been short of breath the last 1-2 years and has not had that evaluated. That is gotten worse of the last 2 days. Worse with exertion. He is also noticed some mild swelling in both lower extremities. He has never had a DVT or PE. He denies any known cardiac history but again he has not seen a doctor for more than 40 years. He has recently traveled to and from [place] by ground vehicle. He denies any calf pain. He denies any chest pain or hemoptysis. He denies any fever or melena. Physical Examination: Middle-aged male. Initial vital signs blood pressure 210/134. Afebrile. His initial pulse ox was 79% in triage without oxygen on 4 L is 94%. HEENT exam moist mucous membranes. Neck nontender no JVD. No lymphadenopathy. Lungs prolonged expiratory phase. No rales or rhonchi. Heart tachycardic rate about 120. No murmur. Abdomen is soft and nontender. Normal bowel sounds. No peritoneal signs. Patient moving all 4 extremities. The upper extremities are neurovascular intact with 5 out of 5 associate attorney strength. Both lower extremities have normal motor strength sensation. He has equal symmetrical trace edema in both lower extremities and feet. Calves are nontender without cords. Neurologically is awake alert with no focal motor deficits. Test Results: Chest x-ray shows chronic changes and borderline cardiomegaly no acute process. Read both by myself and radiologist. CBC White count of 10. Hemoglobin 17. Electrolytes unremarkable normal BUN, creatinine and gap. Troponin normal. D-dimer normal. BNP 297. EKG sinus tachycardia rate of 111 with no acute signs of CO or ischemia. Emergency Department Course and Treatment: Patient be given 2 aerosol treatments of DuoNeb and albuterol. He will do significant workup for both cardiac and respiratory causes. Due to his hypoxia he will most likely need to be admitted. Repeat exam is done better after aerosol treatments. He will also be given 125 of Solu-Medrol IV. Clinically an exacerbation of COPD. I very spoken to the hospitalist and she is down ER evaluating patient for admission. Treatment Plan: Hospitalization for further respiratory treatments. Disposition: Admission Impression: Acute dyspnea with hypoxia Acute examination of COPD newly diagnosed Trace lower extremity edema This note was generated with [employer] dictation software. It may contain incorrect words, spelling, and punctuation that were not noted in review of the chart prior to signing ED Disposition - Plan for ED Patient: Chief Complaint: Shortness of Breath What to do if you have Problems For any increased pain, shortness of breath, bleeding, nausea or vomiting, chest pain, or any unexpected problems, contact your Primary Care Provider. Call [facility] ([phone]) or report to the closest Emergency Room. Call 911 if necessary. 06/19/18 2240 <Electronically signed by Andrew Crawley MD> Date Andrew Crawley MD Cosigner Signature (If Indicated): Date CC: Darrick Arias MD Observed: 06/19/2018 Status: F Source: [place] RESPIRATORY PANEL 7:[address] [facility] MOLECULAR REPOSITORY RP PANEL ADENOVIRUS Not Detected HUMAN METAPHNEUMO Not Detected INFLUENZA A Not Detected INFLUENZA A (SUBTYPE H1) Not Detected INFLUENZA A (SUBTYPE H3) Not Detected INFLUENZA B Not Detected PARAINFLUENZA 1 Not Detected PARAINFLUENZA 2 Not Detected PARAINFLUENZA 3 Not Detected PARAINFLUENZA 4 Not Detected RHINOVIRUS Not Detected RSV A Not Detected RSV B Not Detected NAAT METHOD Testing was performed using nucleic acid amplification Performed By: #### M100.638 #### [facility] [address] [facility] [place], [address] HISTORY AND PHYSICAL Observed: 06/19/2018 Status: F Source: [place] EXAM 6:[address] [facility] REPOSITORY [facility] Medical Records Department [address] [place] [address] History and Physical 06/19/18 1800 MR#: [id number] Acct: [id number] Name: CAROL ZARATE Rep #: [id number] : 1955 62 From: Jasmyn Rich PCP: Darrick Arias MD Status: ADM CHANDAN Y Location: [place] [address] Problem List (1) COPD with acute exacerbation Status: Chronic (2) Acute respiratory failure with hypoxia Status: Acute (3) Tobacco use Status: Acute (4) Elevated BP without diagnosis of hypertension Status: Acute (5) NIDA (obstructive sleep apnea) Status: Suspected (6) Overweight (BMI 25.0-29.9) Status: Chronic (7) Lower extremity edema Status: Chronic History of Present Illness Date of Admission: 06/19/18 Chief Complaint: Dyspnea The patient is a 62 y/o M w/ PMHx: Obesity, Tobacco use who presents to the [facility] ED on 06/19/18 with history of not seeing a physician since the mid 1970s with history of ongoing tobacco use previously 2 pack/day now down to 5-10 cigarettes daily with at least a 35-nafp-ceaq history with ongoing dyspnea over the last year at least worsened dramatically over the last 2 days, more severe with exertion in addition to mildly increased swelling bilateral lower extremities with recent drive from [place] during the holidays with chronic cough, occasionally productive with no fevers or chills. The patient does travel overseas routinely to [place] and remains there for several weeks. The ED initial presentation with T 97.8, heart rate 121, BP 210/134, respiratory rate 20, 79% on room air, increased work of breathing, accessory muscle usage, conversational dyspnea, improved to heart rate 107, BP 184/114, respiratory rate 18, 94% on 2 L with oxygen supplementation and interventions in the ED. ED workup included BC with WC 10.5, heme globin 17.9, platelet 219 without market shift, d-dimer 0.36, BMP with glucose 117, troponin 0 0.039, EKG with sinus tachycardia with no acute evidence of ischemia, BNP 297.5 chest x-ray with chronic changes, mild cardiomegaly. In the ED patient administered Solu-Medrol, DuoNeb, albuterol therapies. Past Medical History Past Medical History (Chronic Problems): Chronic Problems COPD with acute exacerbation (Chronic) Overweight (BMI 25.0-29.9) (Chronic) Lower extremity edema (Chronic) Allergies No Known Allergies Allergy (Verified 06/19/18 15:41) Home Medications: Ambulatory Orders Medication Instructions Recorded NK 06/19/18 Surgical History: no surgical history Psychiatric History: No pertinent psych hx Lives: Spouse/ Significant Other Smoking Status: Current every day smoker - Currently 5-10 cig/day, prior up to 2 ppd since teen, at least 40 year history of cigarette usage. Tobacco Use: Cigarettes Alcohol: None Drugs: None - *Family History Maternal History Items: - - Mother with a history of bone cancer. Paternal History Items: - - Father with a history of COPD, tobacco usage noted to be a grain broker with exposure. Review of Systems Constitutional: Reports: Malaise, Weakness, Fatigue. Denies: Chills, Fever, Weight Change HEENT: Denies: Head Aches, Sinus Congestion, Sinus Drainage Cardiovascular: Reports: Edema. Denies: Chest Pain, Palpitations Respiratory: Reports: Cough, Shortness of Breath, Shortness of breath at rest, Shortness of breath upon exertion, Sputum production, Wheezing Gastrointestinal: Denies: Abdominal Pain, Nausea, Vomiting Genitourinary: Denies: Dysuria Musculoskeletal: Denies: Joint Pain, Joint Tenderness Skin: Denies: Rash, Wounds Neurological: Denies: Numbness, Tingling, Focal weakness Psychiatric: Denies: Anxiety, Depression, Homicidal Ideations, Suicidal Ideations Hematologic/ Lymphatic: Denies: Easy Bruising, Easy Bleeding VTE Information - Inpt Only VTE Present on Admission: No VTE Mechan Device Prophylaxis: SCD's VTE Pharm Prophylaxis ordered?: Yes Patient Problems: Active and Suspected Problems Acute respiratory failure with hypoxia (Acute) Tobacco use (Acute) Elevated BP without diagnosis of hypertension (Acute) NIDA (obstructive sleep apnea) (Suspected) Subjective: Seated upright in the MS bed, improved appearance from prior initial ED presentation, had been noted to have increased work of breathing, accessory muscle usage prior w/ O2 79%. Objective: Physical Examination: General: awake, alert, oriented x 3 and cooperative, seated upright in the MS bed in no apparent distress, notably improved, noted he had prior had perioral blue hue, increased work of breathing, accessory muscle usage, now able to converse. Skin: normal color, turgor, no icterus, cyanosis. HEENT: AT/NC, EOMI, PERRLA, mildly dry MM, no carotid bruits or JVD noted, thickened neck. Lungs: Diminished BS throughout, mild end expiratory wheeze noted, improved from prior as noted, increased work of breathing, accessory muscle usage, conversing currently, no rales or rhonchi. Heart: Improved, mildly tachycardic with regular rhythm; no gallop, rub audible. Abdomen: soft, obese, NTTP, ND, normal BS, no HSM. Extremities: no cyanosis, clubbing, mild BL ankle edema. Neurological: patient awake, alert, oriented x 3; cognitive function intact; pupils equally reactive to light and accomodation; cranial nerves II-XII grossly normal, moving all 4 extremities, no focal deficits, strength moderately to severely globally decreased secondary to acute presentation, improved from initial. Psychiatric: affect appears normal, fatigued, no acute evidence of depressive or anxiety feelings. - Physical Exam Vital Signs Temp Pulse Resp BP Pulse Ox 99.0 F 107 H 18 184/114 H 94 06/19/18 17:16 06/19/18 17:16 06/19/18 17:16 06/19/18 17:16 06/19/18 17:16 Oxygen Flow Rate (L/min) 2 Oxygen Delivery Method Nasal Cannula Weight: 230 lb Body Mass Index (BMI) 28.7 Laboratory Tests Past 24 Hrs WBC 10.5 RBC 6.07 Assessment/Plan All Active Problems Acute respiratory failure with hypoxia (Acute) Tobacco use (Acute) Elevated BP without diagnosis of hypertension (Acute) The patient is a 62 y/o M w/ PMHx: Obesity, Tobacco use who presents to the [facility] ED on 06/19/18 with history of not seeing a physician since the mid 1970s with history of ongoing tobacco use previously 2 pack/day now down to 5-10 cigarettes daily with at least a 97-wqtv-lyag history with ongoing dyspnea over the last year at least worsened dramatically over the last 2 days, more severe with exertion in addition to mildly increased swelling bilateral lower extremities with recent drive from [place] during the holidays with chronic cough, occasionally productive with no fevers or chills. (1) Acute on Suspected chronic COPD exacerbation w/ Acute Hypoxic Respiratory Failure: D-dimer negative. CXR w/ chronic changes while cardiomegaly, initial oxygenation 79%, accessory muscle usage noted, increased work of breathing initially, improved with aerosols and steroid administration as well as supplemental oxygen therapies. Will admit to [facility] on telemetry given improvement following ED interventions, maintain on oxygen with wean as tolerated to room air, continue ATC duonebs, PRN albuterol, IV methylprednisolone, HOB, IS parameters, pending sputum cultures and respiratory viral panel. Will benefit from oxygenation testing prior to discharge to home in addition to follow-up with pulmonary medicine for pulmonary function testing and for deep apnea assessment as and patient notes that he snores markedly and has thickened neck. Given patient notable oversee travels to [place] may need to consider CT chest. (2) Elevated BP without HTN: Suspect long-term uncontrolled hypertension, will add low-dose JEFF inhibitor, continue PRN IV Lopressor and hydralazine, add additional regimen pending response, add baby daily aspirin. Echocardiogram pending as noted BL LE edema and cardiomegaly in setting of uncontrolled HTN. AM FLP requested. (3) Obesity: Weight loss and lifestyle changes encouraged, nutrition consulted for education and teaching. (4) Tobacco Abuse: Encouraged cessation, inpatient consultation per RT, NR if desired. (5) Suspected NIDA: Benefit from outpatient sleep study assessment with pulmonary follow-up as noted for PFTs. (6) DVT Prophylaxis: SCDs, lovenox. Code Visit Inpatient E AND M: 82638 Init Hosp L3 06/19/18 1836 <Electronically signed by Jasmyn Rich > Date Jasmyn Rich Cosigner Signature: Date (if applicable) CC: Jasmyn Rich; Darrick Arias MD Signed D-DIMER QUANTITATIVE Collected: 06/19/2018 Status: F Source: [place] (DVT/PE) 4:[address] [facility] REPOSITORY TYPE CODE TESTS RESULT OUT OF RANGE REFERENCE UNITS LAB L300.8000 0.27-0.49 FEU/ug/m Normal D-DIMER 0.36 QUANT Result Comment: NORMAL D-Dimer level (<0.50) indicates no DVT or PE. Performed By: #### L300.8000 #### [facility] [address] [place], [address] CHEST 1 VIEW Observed: 06/19/2018 Status: F Source: [place] (PORTABLE) 3:[address] [facility] REPOSITORY [facility] Imaging Services [address] [place] [address] Chest 1 View (Portable) MR#: [id number] Acct: [id number] Name: CAROL ZARATE Rep #: [id number] : 1955 M 62 From: Jozef Mendez DO PCP: Darrick Arias MD Status: REG ER Study: Chest 1 View (Portable) Date of Exam: 06/19/18 Exam# [id number] Ordering Dr: Andrew Crawley MD STUDY: X-RAY CHEST REASON FOR EXAM: Male, 62 years old. Chest pain TECHNIQUE: Single AP portable view of the chest. COMPARISON: None. FINDINGS: The lungs are clear and expanded. There is no demonstrated pleural abnormality. There is mild cardiac enlargement. Normal mediastinum and amrit. Normal visualized pulmonary arteries. Normal visualized aortic arch and descending thoracic aorta. Normal visualized thoracic spine. Normal visualized ribs, clavicles, and shoulders. There is no demonstrated abnormality of the visualized soft tissue structures of the upper abdomen. RAD/Chest 1 View (Portable) IMPRESSION: Mild cardiomegaly. Lungs are clear. Electronically Signed: Jozef Mendez DO at 16:37 EST Tel , Service support , CC: Andrew Crawley MD; Darrick Arias MD Log Buyer: Signed CBC W/DIFF, AUTOMATED Collected: 06/19/2018 Status: F Source: [place] 3:[address] [facility] REPOSITORY TYPE CODE TESTS RESULT OUT OF RANGE REFERENCE UNITS LAB L100.1000 4.4-11.0 K/mm3 Normal WBC 10.5 LAB L100.1200 4.6-6.2 M/mm3 Normal RBC 6.07 LAB L100.1300 13.0-16.5 g/dl High HGB 17.9 LAB L100.1400 40-54 % High HCT 56.8 LAB L100.1500 80-94 fL Normal MCV 93.6 LAB L100.1600 27.0-32.0 pg Normal MCH 29.5 LAB L100.1700 32-36 g/gl Low MCHC 31.5 LAB L100.1810 11.6-14.6 % Normal RDW CV 13.6 LAB L100.1820 35.1-43.9 fl High RDW SD 46.7 LAB L100.1900 150-450 K/mm3 Normal PLT 219 LAB L100.2000 6.2-12.0 fl Normal MPV 11.8 LAB L100.2100 47-70 % Normal NEUT% 67.0 LAB L100.2200 19-41 % Normal LY% 20.4 LAB L100.2300 0-10 % High MONO% 11.1 LAB L100.2400 0-5 % Normal EO% 0.8 LAB L100.2500 0-1 % Normal BASO% 0.5 LAB L100.2550 0.0-0.9 % Normal IM GRAN % 0.200 Result Comment: IG% - Immature Granulocytes (promyelocytes, myelocytes and metamyelocytes) > 1% indicates that a LEFT SHIFT is Present. LAB L100.2620 2.0-7.7 X10 3/uL Normal Absolute Neut 7.0 LAB L100.2720 0.83-4.51 X10 3/ul Normal Absolute Lymph 2.14 Performed By: #### L100.0100 #### [facility] [address] [place], [place], [address] BNP,B-TYPE NATRIURETIC Collected: 06/19/2018 Status: F Source: [place] PEPTIDE 3:[address] [facility] REPOSITORY TYPE CODE TESTS RESULT OUT OF RANGE REFERENCE UNITS LAB L503.6620 0-100 pg/mL High B-TYPE 297.5 PHILOMENA PEP Performed By: #### L503.6620 #### [facility] [address] [place], [place], [address] BASIC METABOLIC Collected: 06/19/2018 Status: F Source: [place] PROFILE (BMP) 3:[address] [facility] REPOSITORY TYPE CODE TESTS RESULT OUT OF RANGE REFERENCE UNITS LAB L501.0100 74-106 mg/dL High GLU 117 Result Comment: Fasting Glucose result from 100 to 125 mg/dL suggests IMPAIRED HOMEOSTASIS per A.D.A. criteria. Please note revised GLUCOSE reference range effective 2017. LAB L501.1000 7-18 mg/dL Normal BUN 16 LAB L501.1100 0.70-1.30 mg/dL Normal CREAT,SERUM 0.76 Result Comment: The validity of the calculated GFR AND GFRAA in patients over 70 years has not been determined. Clinical correlation is essential. LAB L501.1110 >60 mL/min Normal EST GFR 110 Result Comment: Non- GFR Calc LAB L501.1115 >60 mL/min Normal EST GFR - AA 133 Result Comment: GFR Calc LAB L501.1255 ml/min Normal Estimated CRCL 123.54 LAB L501.1300 10-20 RATIO High BUN/CRE 20.9 LAB L501.2200 8.5-10 mg/dL .1 CA Normal 8.7 LAB L501.5300 136-14 mmol/L 5 NA Normal 140 LAB L501.5600 3.5-5. mmol/L 1 K Normal 5.0 LAB L501.5900 98-107 mmol/L CL Normal 102 LAB L501.6100 21.0-3 mmol/L 2.0 CO2 Normal 31.0 LAB L501.6200 5-15 GAP Normal 7 Performed By: #### L500.2500, L501.4010 #### [facility] [address] [place], [place], [address] TROPONIN-I Collected: 06/19/2018 Status: F Source: [place] 3:[address] [facility] REPOSITORY TYPE CODE TESTS RESULT OUT OF RANGE REFERENCE UNITS LAB L501.4010 <0.045 ng/mL Normal 0.039 TROPONIN-I Result Comment: TROPONIN-I EXPECTED VALUES <0.045 Negative 0.045 - 0.590 Consistent with Cardiac Damage > OR = 0.600 Critical Value Not every elevated troponin is indicative of CO. These values should be used with clinical judgement in examining the patient's clinical picture for diagnosis. To establish a diagnosis of CO versus myocardial injury, there must be a demonstrated rise and/or fall in the troponin values, in addition to ischemic symptoms, EKG changes, new regional wall motion abnormality, and/or angiographical evidence. PLEASE NOTE: REFERENCE RANGES EDITED 17 Performed By: #### L500.2500, L501.4010 #### [facility] [address] [place], [address] MAGNESIUM Collected: 06/19/2018 Status: F Source: [place] 3:[address] [facility] REPOSITORY TYPE CODE TESTS RESULT OUT OF RANGE REFERENCE UNITS LAB L501.5200 1.6-2.6 mg/dL Normal MG 2.1 Result Comment: Moderate Hemolysis, Result may be falsely increased. Performed By: #### L501.5200 #### [facility] [address] [place], [address] ALLERGIES ALLERGIES DATE TYPE / CODE NAME / CODE REACTION SEVERITY SOURCE 06/28/2018 Drug No Known Unknown [facility] Allergy/4160 Allergies/F00 Hospital 37640(SNOMED 4674184(RXNOR Repository CT) M) ENCOUNTERS ENCOUNTERS ADMIT/DISCHARGE ACCOUNT ADMITTING ENCOUNTER LOCATION SOURCE NUMBER CLASS 07/08/2018 [id number] Ambulatory [place] 4 [facility] ing:[facility] Repository 07/05/2018 [id number] Ambulatory [place] 6 [facility] ing:PSN Repository 06/28/2018/ [id number] Ambulatory BMSBuilding:B [place] 2 [facility] Repository 06/19/2018/ [id number] Jasmyn Inpatient [place] 5 Encounter [facility] ing:RV3Rtuq: Repository [id number]: 1 06/19/2018 [id number] Jasmyn Ambulatory BMSBuilding:B [place] 1 [place].[facility] Repository 06/19/2018 [id number] Ambulatory BMSBuilding:B [place] 3 [place].[facility] Repository 06/19/2018 [id number] Ambulatory BMSBuilding:B [place] 8 MS.[facility] Repository 06/19/2018/ [id number] Ambulatory BMSBuilding:W [place] 9 6 [facility] Repository PAYERS PAYERS ENCOUNTER GUARANTOR PAYER SUBSCRIBER SOURCE 07/08/2018 CAROL D [id number] Primary CAROL D FALLADOB: [place] [address] Insurance:CIGNAPolicy [id number] [place] Number: [facility] [address]Ssr: (330) [id number] Repository [phone] () Date:6100-02-74[address] K[address]UR [address]ZK: 07/08/2018 Secondary NOT GIVENUNK [place] Insurance:SELF PAY [facility] Number: Effective Repository Date:2018-06-28 07/05/2018 CAROL D [id number] Primary CAROL D FALLADOB: [place] [address] Insurance:CIGNAPolicy [id number] Number: [facility] [address]Kuv: (330) [id number] Repository [phone] () Date:3355-16-89TL [address], [place] [address]XC: 07/05/2018 Secondary NOT GIVENUNK [place] Insurance:SELF PAY Community [facility] Number: Effective Repository Date:2018-06-28 06/28/2018 CAROL D [id number] Primary CAROL D FALLADOB: [place] [address] Insurance:CIGNAPolicy [id number] [facility] Number: [facility] [address]Ijz: (330) [id number] Repository [phone] () Date:1782-75-05SJ [address]PVTTXHJ[address]QS, [place] [address]PD: 06/28/2018 Secondary NOT GIVENUNK [place] Insurance:SELF PAY [facility] Number: Effective Repository Date:2018-06-28 06/19/2018 CAROL D [id number] Primary CAROL D FALLADOB: [place] [address] Insurance:CIGNAPolicy [id number] Number[facility] Hospital [address]Gtv: (330) [id number] Repository [phone] () Date:1247-27-60WR [address], [place] [address]FC: 06/19/2018 Secondary NOT GIVENUNK [place] Insurance:SELF PAY [facility] Number: Effective Repository Date:2018-06-19 06/19/2018 CAROL D [id number] Primary CAROL D FALLADOB: [place] [address] Insurance:CIGNAPolicy [id number] [facility] Number: Hospital [address]Yts: (330) [id number] Repository [phone] () Date:4762-15-61PR [address]JON[place], [place] [address]ZK: 06/19/2018 Secondary NOT GIVENUNK [place] Insurance:SELF PAY [facility] Number: Effective Repository Date:2018-06-19 06/19/2018 CAROL D [id number] Primary CAROL D FALLADOB: [place] [address] Insurance:CIGNAPolicy [id number] Memorial Hospital, [place] Number: [facility] [address]Ahu: (330) [id number] Repository [phone] () Date:9782-44-96VR [address]FT[place]Q, [place] [address]WR: 06/19/2018 Secondary NOT GIVENUNK [place] Insurance:SELF PAY [facility] Number: Effective Repository Date:2018-06-19 06/19/2018 CAROL D [id number] Primary CAROL D FALLADOB: [place] [address] Insurance:CIGNAPolicy [id number] [facility] Number[place] Hospital [address]Nme: (330) [id number] Repository [phone] () Date:7237-76-63JI [address]KZIMOGBNY, [place] [address]DP: 06/19/2018 Secondary NOT GIVENUNK [place] Insurance:SELF PAY [facility] Number: Effective Repository Date:2018-06-19 06/19/2018 CAROL D [id number] Primary CAROL D FALLADOB: [place] [address] Insurance:CIGNAPolicy [id number] [facility] Number: Hospital [address]Css: (330) [id number] Repository [phone] (HP) Date:8505-65-31RO [address]BM[address], [address] [address]SW: 06/19/2018 Secondary NOT GIVENUNK [place] Insurance:SELF PAY [facility] Number: Effective Repository Date:2018-06-19
== END ==
PROVIDERS: Family Provider Family Medicine; PCP Family Medicine; Referring Provider Internal Medicine Cardiovascular Disease; Visit Provider Internal Medicine Cardiovascular Disease
DX: I50.30 Unspecified diastolic (congestive) heart failure (principal); R06.02 Shortness of breath; Z72.0 Tobacco use
CPT/HCPCS: 94060; 94726; 94729

== ENCOUNTER → 2018-07-14 19:57 | Outpatient (CLI) | payer OTHER, SELFPAY ==
[2018-06-28 11:11] VITALS: BMI 29.0
[2018-07-13 10:46] VITALS: BMI 28.5
== END ==
PROVIDERS: Family Provider Family Medicine; PCP Family Medicine; Referring Provider Internal Medicine Cardiovascular Disease; Visit Provider Internal Medicine Cardiovascular Disease
DX: G47.33 Obstructive sleep apnea (adult) (pediatric) (principal); I11.0 Hypertensive heart disease with heart failure; I50.30 Unspecified diastolic (congestive) heart failure
CPT/HCPCS: 95810

== ENCOUNTER → 2018-08-16 20:00 | Outpatient (CLI) | payer OTHER, SELFPAY ==
[2018-07-27 09:54] VITALS: BMI 28.7
== END ==
PROVIDERS: Family Provider Family Medicine; PCP Family Medicine; Referring Provider Nurse Practitioner Acute Care; Visit Provider Nurse Practitioner Acute Care
DX: G47.33 Obstructive sleep apnea (adult) (pediatric) (principal)
CPT/HCPCS: 95811

== ENCOUNTER → 2018-08-19 08:03 | Outpatient (CLI) | payer OTHER, SELFPAY ==
[2018-07-27 09:54] VITALS: BMI 28.7
[2018-08-19 09:42] LABS: AST(SGOT) 14 U/L (15-37); Alanine Aminotransfer ALT/SGPT 23 U/L (16-61); Albumin, Serum 3.7 g/dL (3.2-5.0); Alkaline Phosphatase 72 U/L (45-117); Bilirubin, Direct 0.17 mg/dL (0.00-0.30); Cholesterol 201 mg/dL (200); Globulin 3.7 g/dL (2.2-4.2); High Density Lipoprotein 43 mg/dL; Protein, Total 7.4 g/dL (6.4-8.2); Triglycerides 174 mg/dL; Very Low Density Lipoprotein 35 mg/dL (5-40)
[2018-08-19 09:44] LABS: Anion Gap 4 (5-15); BUN 14 mg/dL (7-18); BUN/Creat Ratio 17.3 RATIO (10-20); Calcium,Total 8.7 mg/dL (8.5-10.1); Chloride 102 mmol/L (98-107); Creatinine, Serum 0.81 mg/dL (0.70-1.30); EST Glomerular Filtration Rate 103 mL/min (>60); Est Glom Filt Rate - Afr Amer 125 mL/min (>60); Glucose 99 mg/dL (74-106); Potassium 4.5 mmol/L (3.5-5.1); Sodium Level 136 mmol/L (136-145)
== END ==
PROVIDERS: Internal Medicine Cardiovascular Disease; Family Provider Family Medicine; PCP Family Medicine; Referring Provider Physician Assistant Medical; Visit Provider Physician Assistant Medical
DX: R06.02 Shortness of breath (principal); I11.0 Hypertensive heart disease with heart failure; I50.30 Unspecified diastolic (congestive) heart failure; Z72.0 Tobacco use
CPT/HCPCS: 36415; 80048; 80061; 80076

== ENCOUNTER → 2018-09-23 | Outpatient (CLI) | payer OTHER, SELFPAY ==
[2018-07-13 09:33] VITALS: BMI 28.1
[2018-08-29 09:16] VITALS: BMI 29.8
[2018-09-23 10:55] VITALS: PULSE 108; PULSE 109; PULSE 111; PULSE 113; PULSE 114; PULSE 92; PULSE 97; PULSE 99; O2SAT 83; O2SAT 84; O2SAT 86; O2SAT 89; O2SAT 90; O2SAT 91; O2SAT 92
--- NOTE | 2018-09-23 11:15 | CPS ---
Per pt he currently has oxygen at home and uses 2L PRN. [employer] is his current DME. Pt did meet criteria for oxygen to be placed on him during test but patient refused stating he felt fine. Multiple checks pt SpO2 below 89% and pt continued to decline oxygen. Pt encouraged to wear O2, the risks and benefits were discussed. Pt verbalizes understanding and continued to decline O2. Pt states he has a follow up with Dr. Gan in the next week or two. June HENDRICKS and [facility] notified and will notify Chiki BURRELL of findings.
--- NOTE | 2018-09-23 12:09 | WT_ITS ---
PSN 6 Minute Walk Test - 6 Minute Walk Test 6 Minute Walk Test: 6 Minute Walk Test PSN:6-Minute Walk Test Start: 09/23/18 11:18 Freq: Status: Active Protocol: RESP.6MINW Document 09/23/18 10:55 [facility] (Rec: 09/23/18 11:31 [facility] [id number]) 6 Minute Walk Test Date Performed 09/23/18 Time Performed 10:55 Height 6 ft 3 in Weight: 235 lb Weight in Pounds 235.[address]: Vinod Gan Assistive device used: None Pre-test Oxygen Delivery Method Room Air Pulse Ox (%) 92 Pulse Rate (60-100 beats/min) 92 Dyspnea Akshat Scale (0-10) 0 Exertion Akshat Scale (6-20) 6 1st minute Oxygen Delivery Method Room Air Pulse Ox (%) 91 Pulse Rate (60-100 beats/min) 99 Number of Rests Taken 0 2nd minute Oxygen Delivery Method Room Air Pulse Ox (%) 86 Pulse Rate (60-100 beats/min) 111 H Number of Rests Taken 0 3rd minute Oxygen Delivery Method Room Air Pulse Ox (%) 84 Pulse Rate (60-100 beats/min) 114 H Number of Rests Taken 0 4th minute Oxygen Delivery Method Room Air Pulse Ox (%) 90 Pulse Rate (60-100 beats/min) 109 H Number of Rests Taken 0 5th minute Oxygen Delivery Method Room Air Pulse Ox (%) 89 Pulse Rate (60-100 beats/min) 108 H Number of Rests Taken 0 6th minute Oxygen Delivery Method Room Air Pulse Ox (%) 83 Pulse Rate (60-100 beats/min) 113 H Number of Rests Taken 0 Post-test Oxygen Delivery Method Room Air Pulse Ox (%) 92 Pulse Rate (60-100 beats/min) 97 Dyspnea Akshat Scale (0-10) 3 Exertion Akshat Scale (6-20) 13 Number of Rests Taken 0 Full Laps Walked 24 Partial Lap, Number of Tiles Walked 8 Total Distance Walked (ft) 1424 09/23/18 11:15 (created 09/23/18 11:22) Cardiopulmonary Services by Catherine Duran Per pt he currently has oxygen at home and uses 2L PRN. [employer] is his current DME. Pt did meet criteria for oxygen to be placed on him during test but patient refused stating he felt fine. Multiple checks pt SpO2 below 89% and pt continued to decline oxygen. Pt encouraged to wear O2, the risks and benefits were discussed. Pt verbalizes understanding and continued to decline O2. Pt states he has a follow up with Dr. Gan in the next week or two. June HENDRICKS and [facility] [place] notified and will notify Chiki BURRELL of findings. Initialized on 09/23/18 11:22 - END OF NOTE - Interpretation Interpretation: The patient ambulated 1424 feet over the course of 6 minutes beginning on room air without assistive devices or breaks. Pretesting oxygen saturation was noted to be 92% on room air. With ambulation, the louisa oxygen saturation was 83%. However, the patient refused to allow respiratory therapy to apply supplemental oxygen to him. This testing did indicate the presence of significant exertional oxygen desaturation. - Recommendations Recommendations: Although significant exertional hypoxia was identified, the patient refused to allow supplemental oxygen to be applied. Close interval follow-up is recommended.
== END | disposition home or self-care (01) ==
LOC: PSN 10:41
PROVIDERS: Family Provider Family Medicine; PCP Family Medicine; Referring Provider Internal Medicine Critical Care Medicine; Visit Provider Internal Medicine Critical Care Medicine
DX: G47.33 Obstructive sleep apnea (adult) (pediatric) (principal); J44.1 Chronic obstructive pulmonary disease with (acute) exacerbation; Z72.0 Tobacco use
CPT/HCPCS: 94618

== ENCOUNTER → 2018-10-06 | Outpatient (CLI) | payer OTHER, SELFPAY ==
[2018-10-03 08:08] VITALS: BMI 29.8
[2018-10-06 08:59] VITALS: PULSE 101; PULSE 103; PULSE 104; PULSE 105; PULSE 79; PULSE 82; PULSE 89; O2SAT 85; O2SAT 90; O2SAT 92; O2SAT 94; O2SAT 97
--- NOTE | 2018-10-06 09:05 | CPS ---
Pt came for testing without oxygen but has it at home. Pt states he needs a conserving device. Called Lindsey Boswell SALES SOLUTIONS ASSOCIATE at [employer] for conserving device order. Lindsey stated she [place] [facility] [place] [facility].
--- NOTE | 2018-10-06 13:05 | WT_ITS ---
PSN 6 Minute Walk Test - 6 Minute Walk Test 6 Minute Walk Test: 6 Minute Walk Test PSN:6-Minute Walk Test Start: 10/06/18 08:59 Freq: Status: Active Protocol: RESP.6MINW Document 10/06/18 08:59 [facility] (Rec: 10/06/18 09:02 B [id number]) 6 Minute Walk Test Date Performed 10/06/18 Time Performed 08:33 Height 6 ft 3 in Weight: 235 lb Weight in Pounds 235.[address]: Lindsey Boswell Assistive device used: None Pre-test Oxygen Delivery Method Room Air Pulse Ox (%) 92 Pulse Rate (60-100 beats/min) 82 Dyspnea Akshat Scale (0-10) 0 Exertion Akshat Scale (6-20) 11 1st minute Oxygen Delivery Method Room Air Pulse Ox (%) 92 Pulse Rate (60-100 beats/min) 79 2nd minute Oxygen Delivery Method Room Air Pulse Ox (%) 85 Pulse Rate (60-100 beats/min) 104 H 3rd minute Oxygen Flow Rate (L/min) (L/min) 2 Oxygen Delivery Method Nasal Cannula Pulse Ox (%) 94 Pulse Rate (60-100 beats/min) 89 4th minute Oxygen Flow Rate (L/min) (L/min) 2 Oxygen Delivery Method Nasal Cannula Pulse Ox (%) 90 Pulse Rate (60-100 beats/min) 101 H 5th minute Oxygen Flow Rate (L/min) (L/min) 2 Oxygen Delivery Method Nasal Cannula Pulse Ox (%) 90 Pulse Rate (60-100 beats/min) 103 H 6th minute Oxygen Flow Rate (L/min) (L/min) 2 Oxygen Delivery Method Nasal Cannula Pulse Ox (%) 90 Pulse Rate (60-100 beats/min) 105 H Post-test Oxygen Flow Rate (L/min) (L/min) 2 Oxygen Delivery Method Nasal Cannula Pulse Ox (%) 97 Pulse Rate (60-100 beats/min) 79 Dyspnea Akshat Scale (0-10) 0.5 Exertion Akshat Scale (6-20) 16 Full Laps Walked 28 Partial Lap, Number of Tiles Walked 6 Total Distance Walked (ft) 1658 10/06/18 09:05 Cardiopulmonary Services by Shraddha Foreman Pt came for testing without oxygen but has it at home. Pt states he needs a conserving device. Called Lindsey Boswell H[employer] SUPERVISOR at [employer] for conserving device order. Lindsey stated she sent order for conserving device to [facility] [place], which [place] [facility]. Initialized on 10/06/18 09:05 - END OF NOTE - Interpretation Interpretation: The patient ambulated 1658 feet over the course of 6 minutes beginning on room air without assistive devices or breaks. Pretesting oxygen saturation was noted to be 92% on room air. With ambulation, the louisa oxygen saturation was 85%. 2 L/min of supplemental oxygen was applied and the patient was able to complete the remainder of the test while maintaining appropriate oxygen saturations. - Recommendations Recommendations: 2 L/min of supplemental oxygen should be utilized with exertion.
== END | disposition home or self-care (01) ==
LOC: PSN 08:14
PROVIDERS: Family Provider Family Medicine; PCP Family Medicine; Referring Provider Nurse Practitioner Acute Care; Visit Provider Nurse Practitioner Acute Care
DX: J44.9 Chronic obstructive pulmonary disease, unspecified (principal)
CPT/HCPCS: 94618

== ENCOUNTER → 2019-06-05 13:10 | Outpatient (CLI) | payer OTHER, SELFPAY ==
[2018-06-28 11:11] VITALS: BMI 29.0
[2019-05-25 10:39] VITALS: BMI 30.6
--- NOTE | 2019-06-05 13:14 | STEWCON_ITS ---
Reason For Study: SOB, CHF Stress Results Protocol: Vinod Protocol WITH DEFINITY Maximum Predicted HR: 159 bpm Target HR: 135 bpm % Maximum Predicted HR: 86 % Heart Stage Duration Rate BP Comment (mm:ss) (bpm) Baseline 101 156/90No Chest Pain; Diluted Definity 2 ML Given Vinod Protocol 3:00 123 160/92No Chest Pain; Moderate To Severe Dyspnea Stage I Vinod Protocol 0:48 136 / Severe Dyspnea; SPO2 70% Stage II BP 210/108 Two Minutes After Exercising; Patient Placed on 4L NC Recovery 112 160/90Upon Returning To The Bed; SPO2 94% 3 Minutes After Treadmill Stopped; No Dyspnea Stress Duration: 3:48 mm:ss Maximum Stress HR: 136 bpm METS: 6 Baseline Echocardiogram Findings The estimated ejection fraction is 65 %. Stress Echo Wall motion Data Resting WM Intermediate WM Stress WM Resting Wall Motion Wall Motion Stress No regional wall motion Basal anteroseptal: Mildly abnormalities noted. hypokinetic. Mid-Anterior : Mildly hypokinetic. Mid-anteroseptal : Mildly hypokinetic. EKG Data The baseline ECG displays normal sinus rhythm. The patient exercised according to the regular Vinod protocol for a total duration of 3:48. The maximum heart rate attained was 148 beats per minute. This was 93% of maximum predicted heart rate. The patient exercised into stage 2 of the Vinod protocol. During stress, there were no ST or T wave changes noted to suggest ischemia. No clinical angina was noted. Interpretation Summary The estimated ejection fraction is 65 %. Basal anteroseptal: Mildly hypokinetic Mid-Anterior : Mildly hypokinetic Mid-anteroseptal : Mildly hypokinetic Abnormal, adequate, treadmill echocardiogram. Positive for ischemia by EKG and echocardiographic criteria. No anginal symptoms noted. Poor exercise capacity for age. Patient developed PVCs and ventricular triplets during exercise. In addition he appeared to developed mid anteroseptal hypokinesis at peak exercise. Hypertensive blood pressure response to exercise. Test terminated due to severe dyspnea which may be an anginal equivalent. Final LVEF of 55%. Patient tolerated the procedure well. No complications. The study was technically difficult. Contrast injection was performed. Ordering Physician: Milan Swain Referring Physician: Julissa Zhou Performed By: Susannah Braden, LENNY, RVT
== END ==
PROVIDERS: Family Provider Family Medicine; PCP Family Medicine; Referring Provider Internal Medicine Cardiovascular Disease; Visit Provider Internal Medicine Cardiovascular Disease
DX: I11.0 Hypertensive heart disease with heart failure (principal); I50.30 Unspecified diastolic (congestive) heart failure; J44.9 Chronic obstructive pulmonary disease, unspecified; G47.33 Obstructive sleep apnea (adult) (pediatric)
CPT/HCPCS: 93017; 93350; Q9957; A4216; C8928

== ENCOUNTER → 2019-06-09 10:42 | Outpatient (CLI) | payer OTHER, SELFPAY ==
[2019-06-09 09:36] VITALS: BMI 30.6
[2019-06-09 11:39] LABS: Hemoglobin 18.7 g/dL (13.0-16.5); Mean Corp Hgb Conc 32.9 g/dL (32-36); Mean Corpuscular Hgb 30.2 pg (27.0-32.0); Mean Corpuscular Volume 91.8 fL (80-94); Mean Platelet Vol. 11.2 fl (6.2-12.0); Platelet Count 232 K/mm3 (150-450); RBC Distribution Width CV 12.8 % (11.6-14.6); RBC Distribution Width SD 42.9 fl (35.1-43.9)
[2019-06-09 11:44] LABS: Hematocrit 56.9 % (40-54)
[2019-06-09 11:45] LABS: Prothrombin Time (Protime)PT. 12.6 SECONDS (11.7-14.9)
[2019-06-09 11:46] LABS: Partial Thromboplast Time 28.5 Seconds (24.1-36.2); Scan Indicated on CBC? Y/N NO
[2019-06-09 11:56] LABS: Anion Gap 5 (5-15); BUN 10 mg/dL (7-18); Calcium,Total 8.8 mg/dL (8.5-10.1); Chloride 103 mmol/L (98-107); Creatinine, Serum 0.83 mg/dL (0.70-1.30); EST Glomerular Filtration Rate 100 mL/min (>60); Est Glom Filt Rate - Afr Amer 121 mL/min (>60); Glucose 107 mg/dL (74-106); Potassium 4.2 mmol/L (3.5-5.1); Sodium Level 137 mmol/L (136-145)
[2019-06-12 13:21] LABS: Pathologist Review Reviewed
== END ==
PROVIDERS: Family Provider Family Medicine; PCP Family Medicine; Referring Provider Internal Medicine Cardiovascular Disease; Visit Provider Internal Medicine Cardiovascular Disease
DX: I50.30 Unspecified diastolic (congestive) heart failure (principal); R06.02 Shortness of breath; R94.39 Abnormal result of other cardiovascular function study; I27.20 Pulmonary hypertension, unspecified
CPT/HCPCS: 36415; 71046; 80048; 85027; 85610; 85730

== ENCOUNTER 2019-06-21 06:57 | Day surgery (SDC) | payer OTHER, SELFPAY ==
[2019-05-25 10:39] VITALS: BMI 30.6
[2019-06-09 09:36] VITALS: BMI 30.6
--- NOTE | 2019-06-09 10:30 | RAD_ITS ---
STUDY: X-RAY CHEST REASON FOR EXAM: Male, 63 years old. SOB -- ABNORMAL STRESS TEST TECHNIQUE: PA and lateral views of the chest. COMPARISON: 06/19/2018. FINDINGS: The lungs are clear and expanded. There is no demonstrated pleural abnormality. Normal size heart. Normal mediastinum and amrit. Normal visualized pulmonary arteries. There is atherosclerotic calcification of the aortic arch with tortuosity. There are diffuse degenerative changes of the visualized thoracic spine. There is degenerative osteoarthritis of the bilateral shoulders. There is no demonstrated abnormality of the visualized soft tissue structures of the upper abdomen. RAD/Chest PA and Lateral IMPRESSION: No acute cardiopulmonary disease. Electronically Signed: Maria Ambrose MD at 1:00 EST , Service support ,
[2019-06-20 07:27] VITALS: BMI 30.6
[2019-06-21] VITALS (15 sets, daily range): BP systolic 115–133; BP diastolic 63–77; PULSE 74–96; RESP 12–23; TEMP 36.7; O2SAT 90–92; BMI 30.6; BMI 30.4
[2019-06-21 10:00] LABS: Blood Gas Specimen Type VEN; VBG BASE EXCESS 2 mmol/L (-1.0-3.5); VBG Bicarbonate 28 mmol/L (22-26); VBG Oxygen Content 29 mmol/L (23-33); VBG PO2 34 mmHg (25-40); VBG SO2 61 % (50-70); VBG pCO2 50.6 mmHg (41-51); VBG pH 7.35 (7.32-7.42)
[2019-06-21 10:00] LABS: Blood Gas Specimen Type VEN; VBG BASE EXCESS 3 mmol/L (-1.0-3.5); VBG Bicarbonate 28 mmol/L (22-26); VBG Oxygen Content 30 mmol/L (23-33); VBG PO2 33 mmHg (25-40); VBG SO2 61 % (50-70); VBG pCO2 48.8 mmHg (41-51); VBG pH 7.37 (7.32-7.42)
[2019-06-21 10:00] LABS: ACT Activated Clotting Time 197 sec (74-137)
[2019-06-21 10:00] LABS: Base Excess 1 mmol/L (-2 to +2); Bicarbonate 26.1 mmol/L (22-26); Blood Gas Specimen Type ART; PO2 54 mmHG (75-100); SO2 88 % (95-99); Total Carbon Dioxide 27 mmol/L; pCO2 42.8 mmHg (35-45); pH 7.39 (7.35-7.45)
--- NOTE | 2019-06-21 10:11 | CL.I_ITS ---
Patient Name: CAROL ZARATE Study Date: 06/21/2019 Performing: Milan Swain MD Ht: 75.19 inches 191 cm : 1955 Wt: 244.71 lbs 111 kg Age: 63 Gender: male BSA: 2.4 PROCEDURE(S) PERFORMED [id number]-[id number]/LHC/COR/LV [id number] W OR WO PTCA, SINGLE CORONARY ARTERY CLINICAL PROFILE AND CO-MORBIDITIES Indications: New Onset Angina <= 2 months, Suspected CAD Heart Failure: None Stress/Imaging Date: 06/05/2019 Stress Echocardiogram: Positive Low Risk Angina Classification Anginal Classification w/in 2 Weeks: CCS II Comorbidities/Risk Factors: Current/Recent Smoker (< 1year) Hypertension Dyslipidemia Chronic Lung Disease CONCLUSIONS Normal LV size, wall motion,and systolic function Perserved Left Ventricular systolic function with normal EDP LVEF: by LV gram 75 % Single vessel CAD of the mid LAD Non obstructive coronary arteries The patient has normal pulmonary hemodynamics. Successful PTCA/JAY mid LAD with a 3.5 x 16 Promus Synergy; post dilated throughout with a 4.0 X 8 NC Balloon; 75%-->0%, no dissection. RECOMMENDATIONS Referred for immediate PCI Highly recommend quitting all tobacco products Follow up with primary bisque tile burner Risk factor modification ASA Indefinitley Plavix for at least 12 months Routine post interventional care Refer for Outpatient Cardiac Rehab Manual sheath removal per protocol Follow up with Dr. Swain Successful Mynx Control of RFA. DESCRIPTION OF PROCEDURE The patient arrived to the procedure lab. The risks and benefits of the procedure as well as a full d escription of our services here and lack of surgical backup were fully explained to the patient and/o r their significant other prior to the catheterization. The Timeout was completed, verifying the tricia ect patient and procedure. The patient's procedural site was prepped and draped in the usual fashion. Local anesthetic was given subcutaneously to right groin region with Lidocaine 2%. Using a modified Seldinger technique, arterial access was obtained via the right femoral artery, a 4Fr 45 cm sheath wa s inserted. Venous access was obtained via the right femoral vein, a 7Fr sheath was inserted. A 7Fr t hermal dilution catheter was inserted and right heart pressures were recorded, it was then advanced t o PA position for cardiac outputs. Thermal dilution cardiac outputs were then recorded. O2 saturation s were then obtained. Simultaneous pressures were then recorded. Left Ventriculography was performed in ARNOLD projection using a 4 Fr. Pigtail catheter. LV to AO pullback pressures were then rec orded. The Thermal dilution catheter was then removed. Left Coronary Artery selective angiography was performed in multiple views using a 4 Fr. JL5 catheter. Right Coronary Artery selective angiography was then performed in multiple views using a 4 Fr. 3DRC catheterThe images were reviewed and options discussed. A decision was then made to proceed with an Intervention, IVUS or other adjunct procedure. Arterial sheath was exchanged for a 6 Fr Sheath. ebu 3.75 Guide catheter was inserted and engaged into the LCA. bmw Guide wire was advanced to the LAD. emerge 2.00 x 8 Balloon catheter was advanced across lesion in the LAD, mid. PTCA balloon inflated at 10 atms for 14 secs. Angiogram performed post balloon dilatation. synergy 3.5 x 16 Drug Eluting stent was advanced across the lesion in the LAD, m id. Angiogram performed post stent deployment. nc emerge 4 x8 Balloon catheter was inserted post sten t. Angiogram performed post balloon dilatation. 6 fr 55cm. arterial sheath was exchanged for a 6 Fr 1 1 cm sheath. Contrast was injected through the sheath and the Right Iliac and Femoral artery were ass essed for possible closure device. The arterial sheath was pulled and a Mynx closure device was depl oyed for hemostasis CORONARY ANGIOGRAPHY DOMINANCE: Right Dominant LEFT HEART ASSESSMENT Left Ventricular Ejection Fraction: by LV Gram 75 % Normal Left Ventricular systolic function LVEDP: 5 mmHg Normal Left Ventricular End Diastolic Pressure Normal LV wall motion RIGHT HEART ASSESSMENT Thermal CO: 6.04 Thermal CI: 2.52 Nani CO: 4.65 Nani CI: 1.94 PW: 7/8 4 PA: 30/14 21 RV: 31/2 6 RA: 5/6 1 PVR: 225 SVR: 1192 LEFT MAIN: Angiographically normal LEFT ANTERIOR DESCENDING ARTERY: PROX LAD: Mild luminal irregularities less than 30% MID LAD: 75 % Stenosis DISTAL LAD: Mild luminal irregularities less than 30% CIRCUMFLEX ARTERY: Mild luminal irregularities less than 30% RIGHT CORONARY ARTERY: MID RCA: Mild luminal irregularities less than 30% INTERVENTION INFORMATION LESION SITE: LAD (Mid) Lesion Complexity: Non-High/Non-C, lesion at bifurcation: No, thrombus present: No, lesion length: 16 mm, culprit lesion: Yes Pre Stenosis: 75 % Pre intervention ANI flow: 3 PROCEDURE: Drug Eluting Stent with pre and post dilatation Post Stenosis: 0 % Post intervention ANI flow: 3 Lesion Devices: Diaz .014 BMW [place] Straight 190cm Medtronic 6 Fr EBU3.75 100cm Guide Catheter Bentley Sci EMERGE MR 2.00x08 BALLOON Bentley Sci Synergy MR JAY 3.50x16 Bentley Sci NC EMERGE MR 4.00x08 BALLOON COMPLICATIONS No Complications PROCEDURE MEDICATIONS Versed 1 mg IV Versed 1 mg IV Baby Aspirin (81mg) 1 Tabs PO @ 06/21/2019 07:24:26 Heparin 6000 unit(s) IV 06/21/2019 09:23:13 Nitro 200 mcg IC 06/21/2019 09:26:05 Nitro 200 mcg IC 06/21/2019 09:26:05 SUMMARY OF HEMODYNAMIC DATA Time AIR REST ECG 07:31:22 RA 5/6 (1) SV 08:58:19 RV 31/2, 6 08:58:35 PW 12/19 (4) PV 08:59:48 PA 30/14 (21) PA 09:00:04 LV 129/-19, 4 09:10:45 LV 129/-16, 5 09:10:52 LV 130/-18, 3 09:11:12 PW 03/24 (12) 09:11:12 LV 132/-17, 4 09:11:19 PW 03/23 (5) 09:11:19 LV 132/-12, 9 09:11:39 RV 33/5, 7 09:11:39 LV 150/-15, 9 09:12:50 LV 141/-11, 12 09:12:56 LVp 145/-18, 7 09:13:04 AOp 115/67 (87) 09:13:09 AO 111/73 (91) SA 09:14:42 Type SV CO (l/m) CI (l/m/ HR Time AIR REST Thermal 77.40 6.04 2.52 78 07:31:22 Nani 59.60 4.65 1.94 78 07:31:22 Label % O2 Pres/Loc Time AIR REST PA 61 PA 09:16:19 AO 88 PV 09:16:32 Signed By Milan Swain MD On 06/21/2019 10:10:28 Milan Swain MD
--- NOTE | 2019-06-21 13:41 | EKG12_ITS ---
Test Reason : AM Blood Pressure : / mmHG Vent. Rate : 070 BPM Atrial Rate : 070 BPM P-R Int : 196 ms QRS Dur : 090 ms QT Int : 412 ms P-R-T Axes : 056 051 091 degrees QTc Int : 444 ms Normal sinus rhythm Normal ECG When compared with ECG of 21-JUN-2019 10:29, MANUAL COMPARISON REQUIRED, DATA IS UNCONFIRMED Confirmed by KATHY WHITNEY, JOSIE ([id number]), features editor KATERINA KIRBY ([id number]) on 06/23/2019 1:24:15 PM Referred By: Milan Swain Confirmed By:KEYANA CHAVEZ MD
[2019-06-21] MEDS: 0.9% Normal Saline 1,000 ML 150 ML IV (13:54)
--- NOTE | 2019-06-21 14:52 | CRPH1.INSTRU ---
General Education CAD and cardiac anatomy and function:: Patient communicates acknowledgment Sign/Symptoms of NE:: Not instructed Antiplatelet therapy: Not instructed Proper use of NTG-SL: Not instructed Emergency procedures and activation of EMS: Not instructed Compliance of all prescribed medications: Not instructed Smoking Patient Nicotine/Smoking Risk Factors Are:: Cigarettes Recommendations Include:: Smoking cessation strategies/Smoking packet, Participation in a smoking cessation program Nicotine/Smoking Response Code:: Patient communicates acknowledgment - smoking 3-4 cigarettes per day Dyslipidemia Recommendations Include:: Lipid profile not available Overweight/Obesity Patient Overweight/Obesity Risk Factors Are:: Overweight = 26-29 Overweight/Obesity:: Patient communicates acknowledgment Hypertension Recommendations Include:: Maintain BP <130/85 Hypertension:: Patient communicates acknowledgment Heart Disease Heart Disease Response Code:: Patient communicates acknowledgment Diabetes Patient Diabetes Risk Factors Are:: No documented hx of diabetes Metabolic Syndrome Recommendations Include:: Does not meet criteria Metabolic Syndrome Response Code:: Patient communicates acknowledgment Sedentary Sedentary Response Code:: Patient communicates acknowledgment Stress Patient Stress Risk Factors Are:: Patient denies stress as a risk factor Stress Response Code:: Patient communicates acknowledgment
--- NOTE | 2019-06-21 14:57 | CRPHASE1 ---
Patient Communication PHII Cardiac Rehab Discussed with Patient:: Yes Guide to Cardiac Rehab Given to Patient:: Yes Cardiac Rehab Facility Choice List Given to Patient:: Yes - [facility] Choice Program [facility] CR PHII:: Communication Given to CR Family Nurse Practitioner:: Milan Swain PCP:: Julissa Zhou Sessions:: 36 sessions - 3 days/wk, 12 weeks Risk Factors/Lifestyle Smoking Status: Current every day smoker Hx Hypertension: Yes Hx Dyslipidemia: Yes Hx Obesity: Yes Height: 1.91 m Weight:: 111.1 kg BMI: 30.4 ETOH: No Caffeine: No Substance Abuse: No Family History: Family History (Last Reviewed 05/24/19 @ 16:02 by Catia Pena) Mother Bone cancer Father Emphysema/COPD Phase I Education Given On:: [place], Nutrition, Antiplatelet medication, CHF, Smoking cessation, Diabetes - Type II Issues Affecting Care:: None Knowledge of Condition:: Yes Learning Preferences: Verbal Hospital Course Cardiac Cath Date:: 06/21/19 Medical/Surgical History [place]:: No Angina:: No N[place]:: Yes Hypertension:: Yes Dyslipidemia:: Yes Discharge/Home/Social Eval Discharge Disposition: Home Cardiac Rehabilitation Info Cardiac Rehabilitation Program Information: Cardiac Rehabilitation is important for patients like you who are recovering from a heart problem. Cardiac rehabilitation programs are recognized as integral to the continued care of the patient with coronary heart disease. The cardiac rehabilitation program is designed to optimize a patient's physical, psychological, and social functioning. Health anesthesiologist and critical care work in cardiac rehabilitation programs and assist you with getting the treatments you need to get stronger and healthier - like exercise, healthy eating habits, and medications. Cardiac rehabilitation has been show to help people with heart problems live longer and have better life enjoyment than people who do not go to cardiac rehabilitation. Please contact the Cardiac Rehabilitation Program at [facility] at in two weeks if you have not heard from them.
[2019-06-21] MEDS: Ipratropium/Albuterol Sulfate 3 ML AMPUL.NEB INHALATION (19:44)
[2019-06-21] MEDS: Carvedilol 12.5 MG Tablet PO (21:42)
[2019-06-22] VITALS (12 sets, daily range): BP systolic 116–147; BP diastolic 70–95; PULSE 67–87; RESP 14–25; TEMP 36.6–37.1; O2SAT 92–97
[2019-06-22 03:57] LABS: Hematocrit 51.8 % (40-54); Hemoglobin 16.8 g/dL (13.0-16.5); Mean Corp Hgb Conc 32.4 g/dL (32-36); Mean Corpuscular Hgb 29.9 pg (27.0-32.0); Mean Corpuscular Volume 92.2 fL (80-94); Platelet Count 206 K/mm3 (150-450); RBC Distribution Width CV 13.2 % (11.6-14.6); RBC Distribution Width SD 44.7 fl (35.1-43.9); Red Blood Count 5.62 M/mm3 (4.6-6.2); White Blood Count 10.4 K/mm3 (4.4-11.0)
[2019-06-22 05:09] LABS: ALB/GLOB Ratio 0.8 RATIO (0.9-2.4); AST(SGOT) 9 U/L (15-37); Alanine Aminotransfer ALT/SGPT 17 U/L (16-61); Albumin, Serum 2.9 g/dL (3.2-5.0); Alkaline Phosphatase 57 U/L (45-117); Anion Gap 1 (5-15); BUN 17 mg/dL (7-18); BUN/Creat Ratio 20.5 RATIO (10-20); Chloride 110 mmol/L (98-107); Creatinine, Serum 0.83 mg/dL (0.70-1.30); EST Glomerular Filtration Rate 100 mL/min (>60); Est Glom Filt Rate - Afr Amer 121 mL/min (>60); Estimated Creatinine Clearance 111.71 ml/min; Globulin 3.5 g/dL (2.2-4.2); Glucose 117 mg/dL (74-106); Protein, Total 6.4 g/dL (6.4-8.2); Sodium Level 141 mmol/L (136-145)
[2019-06-22] MEDS: Ipratropium/Albuterol Sulfate 3 ML AMPUL.NEB INHALATION (06:30)
--- NOTE | 2019-06-22 08:12 | PN.CARD_ITS ---
Subjectve: Patient doing very well overnight, no 24-hour events. Telemetry negative. EKG shows normal sinus rhythm, no acute changes. Right groin is clean/dry/intact without evidence of thrills, bruits or hematoma. Globin and creatinine are within nominal limits. Objective: Vital Signs Temp Pulse Resp BP Pulse Ox 97.9 F 87 21 H 144/83 H 92 06/22/19 08:00 06/22/19 08:00 06/22/19 08:00 06/22/19 08:00 06/22/19 08:00 Oxygen Flow Rate (L/min) 2 Oxygen Delivery Method Room Air Weight: 242 lb 1.081 oz Body Mass Index (BMI) 30.6 Intake and Output for Last 24 Hours 06/20/19 06/21/19 06/22/19 23:59 23:59 23:59 Intake Total 1000 / 1420 560 / 560 Balance 1000 / 1420 560 / 560 General: Awake, Alert, Oriented x 3 HEENT: PERRL, EOMI, Sclera Non Icteric Neck: Supple, Good ROM, No Lymph Node Enlargement Lungs: Clear to auscultation Cardiovascular: Regular Rhythm, Normal S1, Normal S2, No Murmurs, No Rubs, No Gallops Vascular: No Carotid Bruits, Normal Femoral Pulses, Normal Radial Pulses, Normal Dorsalis Pedal Pulse, Normal Posterior Tibial Pulses Abdomen: Bowel Sounds Present, Soft, Non Tender, No HSM, No Organomegaly Extremities: No Cyanosis, No Clubbing, No edema Neurological: No Focal Motor or Sensory Deficit 06/21/19 09:03: VBG pH 7.37, VBG pO2 33, VBG O2 Sat (Calc) 61, VBG O2 Content 30, VBG Base Excess 3 06/21/19 09:06: VBG pH 7.35, VBG pO2 34, VBG O2 Sat (Calc) 61, VBG O2 Content 29 , VBG Base Excess 2 06/21/19 09:13: pH 7.39, Bicarbonate Actual 26.1 H, POC Total CO2 27, Base Excess 1, O2 Saturation 88 L, ABG pCO2 42.8, ABG pO2 54 L 06/22/19 03:45: WBC 10.4, RBC 5.62, Hgb 16.8 H, Hct 51.8, MCV 92.2, MCH 29.9, MCHC 32.4, Plt Count 206, MPV 11.0 06/22/19 03:45: Sodium 141, Potassium 4.0, Chloride 110 H, Carbon Dioxide 30.0, Anion Gap 1 L, BUN 17, Creatinine 0.83, Est GFR (MDRD) Af Amer 121, Est GFR (MDRD) Non-Af 100, BUN/Creatinine Ratio 20.5 H, Glucose 117 H, Calcium 8.0 L, Total Bilirubin 0.60 Rhythm: EKG: ECHO: Stress Test: Cardiac Cath: PCI: CT Surgery: Holter monitor: EPS: PPM: CXR: Chest CT Scan: Medical Necessity - Tobacco Use Smoking Status: Current every day smoker Assessment/Plan 1. Coronary artery disease: Patient feels much better since angioplasty, and he did well overnight. Recommend he continue his baby aspirin, Plavix, lisinopril, hydrochlorothiazide, amlodipine. We will continue Coreg as is until he goes to cardiac rehab and determine if he requires additional antihypertensive therapy. Patient may be discharged home and follow-up with Dr. Swain going forward. No additional arteries require intervention at this time. 2. Hyperlipidemia: Continue aggressive LDL reduction. We will start Lipitor therapy, and repeat lipid profile in 6 weeks time. 3. Patient may be discharged home. Code Visit Inpatient E&M: 88697 Subs Hosp L2
--- NOTE | 2019-06-22 08:55 | PCM.DC.CCA ---
Discharge Diet: Light diet - advance as tolerated Discharge Activity: Return to Normal Activity May shower in (days): 1 Lifting Restrictions: 10 pounds and also avoid any pushing or pulling for 3 days after your test. Call your doctor if your incision/area has: Continuous Slow Oozing, Sudden Increased Bleeding, Increased Pain/ Swelling, Increased Redness, Foul Smelling Discharge, Swelling at the incision site Call your doctor if you observe: Fever of 101 or Higher, Dizziness, Chest pain Remove Dressing in (days):: 1 Additional Instructions: You will need to stay on your plavix for at least one year prior to stopping Allergies/Adverse Reactions: Allergies No Known Allergies Allergy (Verified 05/25/19 10:43) Medications to take at Discharge Aspirin [Aspirin, Baby] 81 mg PO DAILY@0800 #30 tab.chew 06/21/18 umeclidinium 62.5 mcg-vilanterol 25 mcg/actuation powdr for inhalation 1 inh INHALATION Q24H #60 ea 01/17/19 albuterol sulfate 90 mcg/actuation aerosol inhaler 2 puff INHALATION Q6H 05/25/19 amlodipine 10 mg tablet 10 mg PO DAILY #90 tab 05/25/19 carvedilol 12.5 mg tablet 12.5 mg PO BID #120 tab 05/25/19 hydrochlorothiazide 25 mg tablet 25 mg PO DAILY #90 tab 05/25/19 lisinopril 40 mg tablet 40 mg PO DAILY #90 tab 05/25/19 clopidogrel 75 mg tablet 75 mg PO DAILY #30 tab 06/08/19 Orders to be completed after discharge: Phase II, Outpatient Cardiac Rehab Location: None Selected Primary Care Physician: Julissa Zhou MD [Primary Care Provider] - Please follow up with your Primary Care Physician in: 4 weeks Test Results: Test results from this visit will be discussed in further detail at your follow-up appointment, if applicable. Please Follow Up With: Chiquita Mobley PA When: 07/03/2019 at 1130 Cardiac Rehabilitation Info Cardiac Rehabilitation Program Information: Cardiac Rehabilitation is important for patients like you who are recovering from a heart problem. Cardiac rehabilitation programs are recognized as integral to the continued care of the patient with coronary heart disease. The cardiac rehabilitation program is designed to optimize a patient's physical, psychological, and social functioning. Health acute care registered nurse work in cardiac rehabilitation programs and assist you with getting the treatments you need to get stronger and healthier - like exercise, healthy eating habits, and medications. Cardiac rehabilitation has been show to help people with heart problems live longer and have better life enjoyment than people who do not go to cardiac rehabilitation. Please contact the Cardiac Rehabilitation Program at [facility] at in two weeks if you have not heard from them.
[2019-06-22] MEDS: Aspirin 81 MG TAB.CHEW PO (09:00)
[2019-06-22] MEDS: Clopidogrel Bisulfate 75 MG Tablet PO (09:00)
[2019-06-22] MEDS: Carvedilol 12.5 MG Tablet PO (09:00)
[2019-06-22] MEDS: Lisinopril 40 MG Tablet PO (09:01)
[2019-06-22] MEDS: hydroCHLOROthiazide 25 MG Tablet PO (09:01)
[2019-06-22] MEDS: amLODIPine 10 MG Tablet PO (09:01)
== END 2019-06-22 09:45 | disposition home or self-care (01) ==
LOC: CLSP 06:58 → ICU 13:10
PROVIDERS: Family Provider Family Medicine; PCP Family Medicine; Referring Provider Internal Medicine Cardiovascular Disease; Visit Provider Internal Medicine Cardiovascular Disease
DX: I25.119 Atherosclerotic heart disease of native coronary artery with unspecified angina pectoris (principal); E78.5 Hyperlipidemia, unspecified; I11.0 Hypertensive heart disease with heart failure; I50.32 Chronic diastolic (congestive) heart failure; J44.9 Chronic obstructive pulmonary disease, unspecified; G47.33 Obstructive sleep apnea (adult) (pediatric); E66.3 Overweight; Z87.891 Personal history of nicotine dependence; Z79.82 Long term (current) use of aspirin; Z79.51 Long term (current) use of inhaled steroids; Z79.899 Other long term (current) drug therapy
CPT/HCPCS: 71046; 80053; 82803; 85027; 85347; 92928; 93005; 93460; 94640; C1760; J7030; J7040; Q9967; C1725; C1751; C1769; C1874; C1887; C1894; C9600

== ENCOUNTER → 2019-07-04 10:08 | Outpatient (CLI) | payer OTHER, SELFPAY ==
[2019-06-21 13:52] VITALS: BMI 30.6
[2019-06-21 15:00] VITALS: BMI 30.4
[2019-07-03 11:14] VITALS: BMI 26.4
--- NOTE | 2019-07-04 10:40 | CR.ITP_ITS ---
General Information - General Information Admitting Diagnosis: PCI WITH STENT Special Needs: NONE Oxygen: PT STATES HE HAS OXYGEN AT HOME AND USES IT WHEN HE IS SOB AFTER DOING ACTI - Education/Goals Barriers to Learning: None Individual Counseling: Initial Assessment: Nicotine/Smoking, High Blood Pressure, Overweight/Obesity, C. High Triglycerides >150, Hypertension, Sedentary Lifestyle, Stress - RAISING 8 YO GRANDSON Cardiac Rehabilitation Goals: 1. Maintain the individual as the primary focus of care. 2. To improve the patient's quality of life. 3. Identification of card iac risk factors and provide cardiac risk factor management. 4. Enhance the psychosocial status of the patient. 5. Reconditioning enough to allow the patient to resume customary activities. 6. Control symptoms of cardiac disease Scale for measuring improvement of personal goals: Enter appropriate number in Comments. 2 = Unchanged. 3 = Slightly Better. 4 = Moderate Improvement. 5 = Met my Goal Personal Goals: Initial Assessment: Quit smoking (participate in smoking cessation, Improve energy level, Participate in home exercise program, Improve muscle strength and endurance Exercise - Initial Assessment - Visit Date of Eval: 07/04/19 - Stages of Change Stages of Change:: Action - Physician Prescribed Exercise Modalities: Treadmill, Biodyne, Rower, Airdyne, NuStep, SciFit Frequency (days/week): 3x/week for 12 weeks [36 sessions] Intensity: 60-80% of age predicted maximum heart rate reserve Target Heart Rate:: 100-135 - Hypertension Do any of the following apply?: Yes, Medication - AMLODIPINE, CARVEDILOL,HCTZ,LISINOPRIL Resting Blood Pressure:: 162/100 - [employer] WILL MONITOR AND REPORT. 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 Total Cholesterol <200. HDL >45. Triglycerides <150. HgbA1C <7%. BMI <25 - Visit Date of Assessment:: 07/04/19 - Stages of Change Stages of Change:: Action - Lipids Total Cholesterol (mg/dL) Goal = less than 200 mg/dL: 201 HDL Cholesterol (mg/dL) Goal = less than 45 mg/dL: 43 LDL Cholesterol (mg/dL) Goal = less than 70 mg/dL: 123 Triglycerides (mg/dL) Goal = less than 150 mg/dL: 174 Lipid Medication: YES - Diabetes Diabetes:: No - Weight Management Height: 6 ft 4 in Weight:: 244 lb - Intervention Referral to dietitian:: No Referral to Diabetic Clinic:: No Will attend diet classes:: Yes - CR CLASSES - Education Gave educational materials for:: Signs & symptoms of hypoglycemia, Signs & symptoms of hyperglycemia, Relate diabetes to coronary artery disease, Healthy eating Tobacco - Initial Assessment - Program Goals Tobacco Program Goals: Complete smoking cessation. Attend education classes. Improve Knowledge Test score - Stage of Change Stages of Change:: Action - Learning Barriers Learning Barriers: Ready to Learn - Family Support Do you have family support?: Yes - - Tobacco Use Tobacco Use: Cigarettes How many cigarettes do you smoke per day?: 20 Years Smokin - Intervention Smoking Cessation Referral:: Yes - PT WILL BE ATTENDING 3:15 CLASS Individual Education/Counseling:: Yes - SMOKE CESSATION REFERRAL Education Schedule Given:: No - Education Attended class for:: Treating Heart Disease, How The Heart Works, What it means to have Heart Disease, How Coronary Artery Disease is Diagnosed, Heart Procedures, What Heart Medications Do, Risk Factors & Modifications, Living an Active Life, Nutrition, Emotions & Heart Disease, Stress Management & Relaxation, Sleep Disorders & Heart Disease - PT PLANS ON ATTENDING CR CLASSES, AVAILABLE READING MATERIAL ALSO ON-LINE Psychosocial - Initial Assess - Target Goals Target Goals: Assess presence or absence of depression. Using a valid screening tool, maximizes coping skills. Positive support system - Stages of Change Stages of Change:: Action - Psychosocial Test Tool Used:: HANDS Depression Questionnaire - Intervention PS - Interventions: Yes Attend Stress Management Classes - CR CLASSES, Yes Uses Stress Management Skills - CR CLASSES, No Referral to Mental Health, No Referral to [facility] Case Management, No Referral to Physician - Education Gave educational materials for:: Coping techniques, Signs & symptoms of depression, Stress management, Relaxation techniques - Patient/Program Goal Preventative Medication(s):: Aspirin, JEFF inhibitor, Clopidogrel, Beta samuel, Statin/lipid - Assistive Devices Assistive Devices:: None Fall Risk Assessed:: No Patient Health Questionnaire Initial Assessment 1. Little interest or pleasure in doing things: Not at all 2. Feeling down, depressed, or hopeless: Not at all 3. Trouble falling or staying asleep, or sleeping too much: Several days 4. Feeling tired or having little energy: Several days 5. Poor appetite or overeating: Not at all 6. Feeling bad about yourself -- or that you are a failure or have let yourself or your family down: Several days 7. Trouble concentrating on things, such as reading the newspaper or watching television: Not at all 8. Moving or speaking so slowly that other people could have noticed. Or the opposite - being so fidgety or restless that you have been moving around a lot more than usual: Not at all 9. Thoughts that you would be better off , or of hurting yourself in some way: Not at all How difficult have these problems made it for you to do your work, take care of things at home, or get along with other people?: Not difficult at all Total Score: 3 MERRICK-Q SV Test - Statements CAD is a disease of the arteries in the heart: False Examples of risk factors for heart disease: True Angina is chest pain or discomfort: True The benefits of resistance training include: True Eating more meat and dairy products: False Anti-platelet medications such as aspirin are important: True The only effective way to manage stress: False An exercise warm-up slowly increases heart rate: True Prepared, processed foods usually have high sodium: True Depression is common after a heart attack: True The statin medications lower cholesterol: True To control blood pressure, lower the amount of sodium: True If someone gets chest discomfort during walking: False Transfats are partially hydrogenated vegetable oils: True Sleep apnea that is not treated increases the risk: False To control cholesterol, one should become a vegetarian: False Someone knows if he/she is exercising at the right level: True Diabetes cannot be prevented with exercise & health eating: I Don't Know Stress is a large risk for heart attack: True A diet that can help lower blood pressure is rich in: True - Total Score Total Correct Responses: 19 Self-Efficacy Initial Assessment We would like to know how confident you are in doing certain activities. Please select your confidence level for:: Select your confidence level for the following using the scale 1-10 where 1 is not at all confident and 10 is totally confident. Your score is the average of all 6 responses. Fatigue: How confident are you that you can keep the fatigue caused by your disease from interfering with the things you want to do? Select Number: 4 Physical Discomfort or Pain: How confident are you that you can keep the physical discomfort or pain of your disease from interfering with the things you want to do? Select Number: 8 Emotional Distress: How confident are you that you can keep the emotional distress caused by your disease from interfering with the things you want to do? Select Number: 8 Other Symptoms or Health Problems: How confident are you that you can keep other symptoms or health problems from interfering with the things you want to do? Select Number: 4 Different Tasks and Activities: How confident are you that you can do the different tasks and activities needed to manage your health condition so as to reduce your need to see a doctor? Select Number: 7 Medication: How confident are you that you can do things other than just taking medication to reduce how much your illness affects your everyday life? Select Number: 9 Total Score:: 6 Nutrition Survey - Nutrition Survey Instructions Scoring Instructions: Scoring is as follows: Yes = 1 points. No = 0 point. Patient score that is >/=12 is considered to be at potential nutritional risk and could benefit from a referral to a registered dietitian. - Nutrition Survey Initial Have you lost >10 lbs over the past 2 months without trying?: No Are you following a special diet at home for diabetes, low fat, or low salt?: No Are you interested in meeting with a dietitian for help understanding your diet?: No Do you eat less than 3 meals a day?: No Do you eat fatty meats (garay, sausage, ribs, etc), fried foods, desserts, large amounts of salad dressings, margarine, butter, or cheese most days?: Yes Do you have food allergies? [Enter types in comment field]: No Do you eat in restaurants more than 3 times a week?: Yes Do you season food with salt, seasoning salt, or garlic salt?: No Do you used canned, boxed, frozen meals, or soups, seasoning packets?: No Total Score:: 2
--- NOTE | 2019-07-04 10:47 | CR.HP_ITS ---
CR - History & Physical - General Arrival date:: 07/04/19 Arrival time:: 10:10 Date of Referral:: 06/21/19 Date of CR Evaluation:: 07/04/19 Referring Physician: DR FLOR Primary Diagnosis: PCI WITH STENT - History of Present Cardiac Event Onset Date: Enter Onset Date of cardiac illnesses in Comment field below Current stable Angina Pectoris:: No Acute Myocardial Infarction within 12 months:: No Coronary Artery Bypass Graft:: No Heart valve replacement or repair:: No PTCA or coronary stenting:: Yes - X1 Heart or Heart-Lung Transplant:: No Heart Failure EF <35%:: No - EF 75% Type of Symptoms:: NONE Interventions with present event:: STENT X1 Were there any complications?: NONE - Medications Home Medications: Ambulatory Orders Medication Instructions Recorded Aspirin [Aspirin, Baby] 81 mg PO DAILY@0800 #30 tab.chew 06/21/18 umeclidinium 62.5 mcg-vilanterol 1 inh INHALATION Q24H #60 ea 01/17/19 25 mcg/actuation powdr for inhalation albuterol sulfate 90 mcg/actuation 2 puff INHALATION Q6H 05/25/19 aerosol inhaler amlodipine 10 mg tablet 10 mg PO DAILY #90 tab 05/25/19 hydrochlorothiazide 25 mg tablet 25 mg PO DAILY #90 tab 05/25/19 lisinopril 40 mg tablet 40 mg PO DAILY #90 tab 05/25/19 Nitroglycerin (INPATIENT USE) 0.4 mg SUBLINGUAL Q5M PRN #25 06/22/19 [Nitrostat] tab.subl atorvastatin 40 mg tablet 40 mg PO QHS #90 tab 07/03/19 carvedilol 12.5 mg tablet 12.5 mg PO BID #180 tab 07/03/19 clopidogrel 75 mg tablet 75 mg PO DAILY #90 tab 07/03/19 - Allergies Allergies/Adverse Reactions: Allergies No Known Allergies Allergy (Verified 07/03/19 11:14) - Sleep Disorder Evaluation Hx of Sleep Apnea: Yes STOP Results: PT CURRENTLY WEARS CPAP Advanced Directives - Advanced Directives Power of Multi Share Program Coordinator: No Living Will: No Advance Directives Information Provided: Yes - INFORMED OF AVAILABLITY IN MR DEPARTMENT Advance Directives on File: No DNR Order?:: No Past Medical History - Past Medical Illness Medical History: Past Medical History (Last Reviewed 07/03/19 @ 12:04 by Chiquita Mobley PA) Atherosclerosis of coronary artery of [place] heart without angina pectoris (Chronic) I25.10 Abnormal stress echo (Acute) R94.39 Shortness of breath (Chronic) R06.02 Pulmonary hypertension (Chronic) I27.20 Diastolic congestive heart failure (Chronic) I50.30 Essential hypertension (Chronic) I10 COPD with acute exacerbation (Chronic) J44.1 Acute respiratory failure with hypoxia (Resolved) J96.01 Tobacco use (Chronic) Z72.0 NIDA (obstructive sleep apnea) (Chronic) G47.33 Overweight (BMI 25.0-29.9) E66.3 Lower extremity edema (Resolved) R60.0 - Past Surgical History Surgical History: Past Surgical History (Last Reviewed 07/03/19 @ 12:04 by ROMULO Burdick) Stented coronary artery (Chronic) Onset Date: 06/21/18 Z95.5 Successful PTCA/JAY mid LAD with a 3.5 x 16 Promus Synergy per DJN @ [facility] 06/21/2019 Surgical History: no surgical history - Family History Summary Family History: Family History (Last Reviewed 07/03/19 @ 12:04 by ROMULO Burdick) Mother Bone cancer Father Emphysema/COPD Social History - Smoking History Smoking Status: Former smoker Years Smokin Packs Smoked per Day: 1 Hx Tobacco Use: Yes Hx Smoking Exposure: Yes - Alcohol Use Alcohol Usage: No - Substance Abuse Hx Substance Use: No - Occupation Occupation (List type of work in comments):: Employed Hours worked per day:: 8 Returned to work on:: 06/27/19 - Hobbies, Recreation, Social Activities Hobbies: Other - WE HAVE A SIX YEAR OLD GRANDSON Recreational Activities: I can hardly do any recreational activities Social Environment - Status Marital Status: - LIVES WITH YOUNGER SON GOING TO COLLEGE, GRANDSON AND - Current Living Arrangements Living Environment:: Family, Spouse - Children How many children do you have?: 6 Do any of your children live nearby?: Yes - YOUNGER SON LIVES WITH PT AD WHILE GOING TO SCHOOL - Safety Do you feel safe in your surroundings?: Yes - Assistance Do you need any assistance at home?: NONE Review of Systems - Review of Systems Hints: Right click = Denies (Slash). Left click = Reports ([place]) Review of Present Symptoms: Reports: Shortness of Breath with Exertion, Dizziness/Lightheadedness - SOMETIMES, MAYBE FROM MEDS, Fatigue, Appetite - Normal, Sleep - Normal. Denies: Shortness of Breath at Rest, PVD, Operative Discomfort, Angina, Wound Healing, Heart Arrhythmia/Irregularities - Pain Is Patient Pain Free?: Yes Risk Factor Assessment - Chief Complaint Chief Complaint: CURRENT PCI PT HERE TODAY FOR INITIAL CR EVALUATION - Vital Signs Temperature: 98.6 F Respiratory Rate: 16 Pulse Ox: 87 Blood Pressure: 162/100 Nailbeds:: PINK - Pulse Pulse Rate: 85 Pulse Rhythm: Regular - Hypertension How long have you been treated?: A YEAR On medication(s)?: YES, AMLODIPINE, CARVEDILOL, HCTZ, LISINOPRIL - Stress Stress: Recent, Long-standing - 6 YO GRANDSO LIVES WITH PT AND - Blood Cholesterol/Lipids Total Cholesterol (mg/dL) Goal = less than 200 mg/dL: 201 HDL Cholesterol (mg/dL) Goal = less than 40 mg/dL: 43 LDL Cholesterol (mg/dL) Goal = less than 70 mg/dL: 123 Triglycerides (mg/dL) Goal = less than 150 mg/dL: 174 - Diabetes Nutrition Referral for Diabetes: No - Obesity Height: 6 ft 4 in Weight:: 244 lb Weight in Pounds: 244.0 lbs Weight Source: Stated by Patient Body Mass Index (BMI): 29.7 Nutritional Referral for Obesity: No - Risk Stratification Risk Guidelines: Lowest Risk: Risk Factor for Diabetes, Risk Factor for Depression, Moderate Risk: Risk Factor for Dyslipidemia, Risk Factor for Obesity, Risk Factor for Sedentary Lifestyle, Highest Risk: Risk Factor for Smoking, Risk Factor for Hypertension - PT STATES B/P WAS MAJOR RISK FACTOR, STARTED B/P MED ONE YR AGO - For Smoking Smoking Risk Guidelines: Smoking Low Risk: None or quit greater than 6 months ago. Smoking Moderate Risk: Smoker or quit 6 months or less ago. Smoking High Risk: Smoker - For Dyslipidemia Dyslipidemia Risk Guidelines: Low Risk: Moderate Risk: High Risk: 15-25% fat 25.1-29% fat >/= 30% fat. <7% sat fat 7-9% sat fat >9% sat fat. <150 mg chol 150-299 mg chol >/= 300 mg chol. LDL <100 LDL 100-129 LDL >/= 130. Chol/HDL ratio <5.0 Chol/HDL ratio 5.0-6.0 Chol/HDL ratio >6.0. Triglycerides <100 Triglycerides 100- 149 Triglycerides >/= 150 - For Diabetes Mellitus Diabetes Risk Guidelines: Diabetes Low Risk: HgA1c <6.5% and/or FBG <120. Diabetes Moderate Risk: HgA1c 6.6-7.9% and/or FBG 120-180. Diabetes High Risk: HgA1c >/= 8% and/or FBG >180 - For Obesity/Overweight Obesity/Overweight Risk Guidelines: Obesity Low Risk: BMI <25.0. Obesity Moderate Risk: BMI 25-29.9. Obesity High Risk: BMI >/= 30.0 - For Hypertension Hypertension Risk Guidelines: Hypertension Low Risk: Systolic <120 and Diastolic <80. Hypertension Moderate Risk: Systolic 120-139 and Diastolic 80-89. Hypertension High Risk: Systolic >/= 140 and Diastolic >/= 90 - For Sedentary Lifestyle Sedentary Lifestyle Risk Guidelines: Sedentary Lifestyle Low Risk: >/= 1,500 kcal/week. Sedentary Lifestyle Moderate Risk: 700-1,499 kcal/week. Sedentary Lifestyle High Risk: < 700 kcal/week - For Depression Depression Risk Guidelines: Depression Low Risk: Not clinically depressed. Depression Moderate Risk: Mildly depressed. Depression High Risk: Clinically depressed - Family History Family History: Family History (Last Reviewed 07/03/19 @ 12:04 by ROMULO Burdick) Mother Bone cancer Father Emphysema/COPD Motivation - Motivation to Participate On a scale of 1 to 10, how prepared are you to commit to attending program?: 10 What do you see as barriers to successfully being able to complete the program?: POSSIBLY INSURANCE WILL CHECK THIS AFTERNOON. ALSO 8 YO GRANDSON AND WORK What do you see as the benefits of succesfully completing the program? In other words, what do you hope to get out of participating in the program?: SMOKING CESSATION, REGULAR EXERCISE Are there issues you are dealing with that will interfere with completing the program?: RAISING GRANDSON Do you have a spouse or signficant other, family or friends who will help support you to complete the program?: SPOUSE
[2019-07-04 11:15] VITALS: BP 162/100; PULSE 85; RESP 16; TEMP 37; O2SAT 87; BMI 29.7
[2019-07-04 11:43] VITALS: BP 162/100
== END ==
PROVIDERS: Family Provider Family Medicine; PCP Family Medicine; Referring Provider Internal Medicine Cardiovascular Disease; Visit Provider Internal Medicine Cardiovascular Disease
DX: Z95.5 Presence of coronary angioplasty implant and graft (principal)

== ENCOUNTER 2019-07-14 15:15 | Outpatient (RCR) | payer OTHER, SELFPAY ==
[2019-06-21 15:00] VITALS: BMI 30.4
[2019-07-04 11:15] VITALS: BMI 29.7
== END 2019-07-14 23:59 ==
LOC: CR 15:15
PROVIDERS: PCP Family Medicine; Referring Provider Internal Medicine Cardiovascular Disease; Visit Provider Internal Medicine Cardiovascular Disease
DX: I25.10 Atherosclerotic heart disease of native coronary artery without angina pectoris (principal); I50.30 Unspecified diastolic (congestive) heart failure; I27.20 Pulmonary hypertension, unspecified; R06.02 Shortness of breath; J44.9 Chronic obstructive pulmonary disease, unspecified; Z95.5 Presence of coronary angioplasty implant and graft
CPT/HCPCS: 93798

== ENCOUNTER 2019-08-09 15:15 | Outpatient (RCR) | payer OTHER, SELFPAY ==
[2019-06-21 15:00] VITALS: BMI 30.4
[2019-07-04 11:15] VITALS: BMI 29.7
--- NOTE | 2019-08-04 07:10 | PCM.CR.ITP ---
Diagnosis - General Information Admitting Diagnosis: PCI W/CORONARY STENTING Personal Learning Style:: Audio/Visual, Written Barriers to Learning: No Barriers Stage of change r/t lifestyle modifications:: Action Gave educational material for:: Treating Heart Disease, Emotions & Heart Disease, Stress Management & Relaxation, Sleep Disorders & Heart Disease, How The Heart Works, What it means to have Heart Disease, How Coronary Artery Disease is Diagnosed, Heart Procedures, What Heart Medications Do, Risk Factors & Modifications, Living an Active Life, Nutrition - Education/Goals Individual Counseling: Initial Assessment: Abnormal Cholesterol Levels, High Blood Pressure, Overweight/Obesity Cardiac Rehabilitation Goals: 1. Maintain the individual as the primary focus of care. 2. To improve the patient's quality of life. 3. Identification of cardiac risk factors and provide cardiac risk factor management. 4. Enhance the psychosocial status of the patient. 5. Reconditioning enough to allow the patient to resume customary activities. 6. Control symptoms of cardiac disease Personal Goals: Initial Assessment: Quit smoking (participate in smoking cessation - Particpate in smoking cessation, Improve energy level, Participate in home exercise program, Improve knowledge of cardiac disease, Improve diet and eating habits (eat healthier), Control risk factors (learn risk factor modification) Scale for measuring improvement of personal goals: Enter appropriate number in Comments. 2 = Unchanged. 3 = Slightly Better. 4 = Moderate Improvement. 5 = Met my Goal - Diagnosis & Disease Process Outcomes/Goals: Pt IDs own risk factors & lifestyle modifications by Session 10, Verbalizes symptoms of angina & response by session 3., Pt independently manages Plan/Interventions: Assist Pt to ID & engage in lifestyle modification to reduce CVD risk, Instruct on individual risk factors, Review symptoms of angina & emergency actions, Review secondary diagnosis & identify educational needs. 30 day Reassessments:: Progressing - Safety Referral to Physical Therapy: No Referral to [facility] Case Management: No Fall Risk Assessed:: Yes Assistive Devices:: None Exercise - 30-day Assessment - Visit Date of Eval: 08/04/19 Session #:: 11 - started his CR on 07/10/2019 - Physician Prescribed Exercise Modalities: Treadmill, Airdyne, NuStep Frequency: 3x/week for 12 weeks [36 sessions] Intensity: 60-80% of age predicted maximum heart rate reserve Current METSs:: 3.0 Target Heart Rate:: 100-135 Current RPE:: 13 Maximum Excercise HR:: 112 Resting Blood Pressure: 132/76 - Exercise SpO2 92% on 2.5 liters oxygen Maximum Exercise Blood Pressure: 150/90 EKG Type: NSR to sinus tach with rare PVC and isolated ventricular couplets - Outcomes & Goals Goals:: Verbalizes understanding of THR, RPE & goal METS by session 6, Documents in home exercise log/reports 30 min aerobic 5 day/wk by DC, Demonstrates accurate pulse taking by DC - Intervention & Plan Exercise Program Goals: Instruct on personal THR & RPE, Instruct on MET level & personal MET goal, Show patient to take own pulse /validate performance until accurate, Instruct on home exercise - 30-day Reassessments 30 day Reassessments:: Progressing - Physical Activity Home Exercise Physical Activity - Home Exercise: Safe Exercise, Warm-up, Self-monitoring, Cool-Down, Home Exercise > 30 min Daily, Sitting Time <3 hours/daily - Outcomes & Goals Outcomes/Goals: Demonstrates correct Warm-up/exercise Cool-Down (S3) if = 2.5 METs, Verbalizes symptoms of exercise intolerance by Session 3 (S3), Demonstrate safe equipment use (S3) & follows exercise prescrition (6) - Intervention & Plan Plan/Intervention: Instruct warm-up & cool-down if exercising at > 2 METs, Instruct on symptoms of exercise intolerance & actions to take, Instruct & monitor on saf, Assess intial functional capacity & safety risk - 30-day Reassessments 30 day Reassessments:: Progressing Nutrition - 30-Day Assessment - Program Goals Nutrition Program Goals: LDL <100 optimal. 100 - 129 Near optimal. 130 - 159 Borderline High. 160 - 189 High. Total Cholesterol <200 desirable. 200 - 239 Borderline High. >/= 240 High. HDL < 40 Low >/=60 High. Triglycerides <150 desirable. <199 optimal. VlDL 5 - 40. HgbA1C <7%. BMI <25 Patient has diagnosis of Hyperlipidemia (ICD E78)?: Yes - Visit Date of Assessment:: 08/04/19 Session #:: 11 - Cholesterol/Lipids Triglycerides (mg/dL): 174 - Total Cholesterol (mg/dL): 201 LDL Cholesterol (mg/dL): 123 HDL Cholesterol (mg/dL): 43 Determine presence & major risk factors that modify LDL goal: Cigarette smoking, Hypertension or hypertensive medication, Age men > 45 years; women >/= 55 years Outcomes/Goals: Pt IDs own risk factors & lifestyle modifications by Session 10, Verbalizes symptoms of angina & response by session 3., Pt independently manages Intervention/Plan: Instruct on personal lipid levels & lipid goals/NCEP guidelines, Instruct on cholesterol Referral to dietitian:: Yes - Diabetes (Other Core Measures) Diabetes Type: Not Applicable - Weight Mgt (Other Care) Not Applicable: No Height: 6 ft 4 in Weight:: 244 lb 8 oz BMI: 29.7 Diagnosis Overweight/Obesity BMI> 30% ICD-10 E66: No Diagnosis High BMI/Morbid Obesity BMI> 35% ICD-10 Z68: No Outcomes/Goals: Pt sets, maintains & shows weight loss goal & trend during rehab Intervention/Plan: Instruct on ideal BMI & set weight loss goal w/patient, Assist pt to ID & incorporate diet changes for weight loss by S9, Encourage goal of using 250-300dcal per session for weight loss 30 day Reassessments:: Progressing - Healthy Eating Habits Will attend diet classes:: Yes Outcomes/Goals:: Consume diet rich in vegs,fruits,whole grain/high fiber,fish,lean meat, Limit sat/trans fats,cholesterol & added salts & sugars Intervention/Plan:: Assess current eating habits 30-day Reassessments:: Progressing - Education Gave educational materials for:: Healthy eating Medical- 30-Day Assessment - Visit Date of Eval: 08/04/19 Session #:: 11 - Medication Compliance Preventative Medication(s):: Aspirin, Clopidogrel/P2Y12 inhibit, Statin/lipid H/O mental health issues: depression, anxiety, or addiction?: No Doesn?t believe in the benefits of treatment?: No Believes medications are unnecessary or harmful?: No Has a concern about medication side effects?: No Expresses concern over the cost of medications?: No Outcomes/Goals: Verbalizes medications,desired effect & common side effects @ DC, Pt self-reports following medication regimen, Keeps card in wallet w/medications listed by DC Interventions/plans: Instruct on medication effects & side effects, Review medication list w/patient every two weeks, Instruct importance of taking meds as ordered & assist problem solving 30-day Reassessments:: Progressing - Tobacco Use Tobacco Use: Cigarettes Do you use smokeless tobacco?: No Outcomes/Goals: Smoking cessation achieved or maintained by discharge, Identify aids/strategies for achieving smoking cessation by session 6 Interventions/plan: Instruct on effects of smoking & provide smoking cessation resource, Assist pt to set quit date & provide encouragement, Assist pt to develop strategies to achieve/maintain quit date, Assist pt w/nicotine replacement & medication for cessation success 30-day Reassessments:: Progressing - Hypertension Hypertension Diagnosis:: Hypertension ICD-10 I10 Resting Blood Pressure:: 132/76 [place] [employer] Hypertension Guidelines: [place] [employer] Hypertension Guidelines. Normal BP Less than 120/80. Elevated BP 120/80. Hypertension Stage 1: BP 130-139/80-89. Hypertesnion Stage 2: BP 140 or higher/90 or higher. Hypertension Crisis: BP higher than 180/120 Peak Exercise Blood Pressure:: 150/90 Outcomes/Goals: Able to verbalize/achieve optimal blood pressure <130/80, Incorporates diet changes & exercise for blood pressure control by DC Interventions/plan: Instruct on optimal blood pressure, hypertension & medications, Instruct on effects of sodium, alcohol, stress, exercise &hypertension 30 day Reassessments:: Progressing - Tobacco Cessation Referral Smoking Cessation Referral:: Yes Individual Education/Counseling:: Yes Education Schedule Given:: Yes Psychosocial - 30-Day Assess - VIsit Date of Eval: 08/04/19 Session #:: 11 Not Applicable: Yes History of previous Mental disease:: No - Target Goals Target Goals: Assess presence or absence of depression. Using a valid screening tool, maximizes coping skills. Positive support system - Psychosocial Test Tool Used:: Phoebe Fitzgerald QOL Cardiac, PHQ-9 Questionnaire phq-9 Severity: Severity. 1-4 Minimal Depression. 5-9 Mild Depression. 10-14 Moderate Depression. 15-19 Moderately Sever Depression. 20-27 Severe Depression. Rule: - Referral to Behavioral Health PS - Interventions: Yes Attend Stress Management Classes, No Referral to Behavioral Health if PHQ-9 score >9:, No Referral to [facility], No Referral to Physician if PHQ-9 if score is 5-9: - Outcomes/Goals: See list Psychosocial Outcomes/Goals:: ID's personal stressors & 2 strategies to manage stress by discharge - Intervention/Plan: See List Interventions/Plan:: Assess stressors,coping strategies & signs of derpression on admission, Instruct/assist pt to develop coping & personal stress Mgt strategies, Instruct patient to recognize signs & symptoms of depression, Instruct patient to recog - 30-day Reassessments: 30 day Reassessments:: Progressing Patient Health Questionnaire 30-Day Re-eval Assessment 1. Little interest or pleasure in doing things: Not at all 2. Feeling down, depressed, or hopeless: Not at all 3. Trouble falling or staying asleep, or sleeping too much: Several days 4. Feeling tired or having little energy: Not at all 5. Poor appetite or overeating: Not at all 6. Feeling bad about yourself -- or that you are a failure or have let yourself or your family down: Not at all 7. Trouble concentrating on things, such as reading the newspaper or watching television: Not at all 8. Moving or speaking so slowly that other people could have noticed. Or the opposite - being so fidgety or restless that you have been moving around a lot more than usual: Not at all 9. Thoughts that you would be better off , or of hurting yourself in some way: Not at all Total Score: 1 Self-Efficacy 30-Day Re-eval Assessment We would like to know how confident you are in doing certain activities. Please select your confidence level for:: Select your confidence level for the following using the scale 1-10 where 1 is not at all confident and 10 is totally confident. Your score is the average of all 6 responses. Fatigue: How confident are you that you can keep the fatigue caused by your disease from interfering with the things you want to do? Select Number: 6 Physical Discomfort or Pain: How confident are you that you can keep the physical discomfort or pain of your disease from interfering with the things you want to do? Select Number: 9 Emotional Distress: How confident are you that you can keep the emotional distress caused by your disease from interfering with the things you want to do? Select Number: 9 Other Symptoms or Health Problems: How confident are you that you can keep other symptoms or health problems from interfering with the things you want to do? Select Number: 7 Different Tasks and Activities: How confident are you that you can do the different tasks and activities needed to manage your health condition so as to reduce your need to see a doctor? Select Number: 8 Medication: How confident are you that you can do things other than just taking medication to reduce how much your illness affects your everyday life? Select Number: 10 Total Score:: 8
[2019-08-04 07:20] VITALS: BP 132/76; BP 150/90; BMI 29.7
== END 2019-08-12 23:59 ==
LOC: CR 15:15
PROVIDERS: PCP Family Medicine; Referring Provider Internal Medicine Cardiovascular Disease; Visit Provider Internal Medicine Cardiovascular Disease
DX: I25.10 Atherosclerotic heart disease of native coronary artery without angina pectoris (principal); I50.30 Unspecified diastolic (congestive) heart failure; I27.20 Pulmonary hypertension, unspecified; R06.02 Shortness of breath; J44.9 Chronic obstructive pulmonary disease, unspecified; Z95.5 Presence of coronary angioplasty implant and graft
CPT/HCPCS: 93798

== ENCOUNTER 2019-08-25 15:15 | Outpatient (RCR) | payer OTHER, SELFPAY ==
[2019-07-04 11:15] VITALS: BMI 29.7
[2019-08-04 07:20] VITALS: BMI 29.7
[2019-08-13 00:56] VITALS: BP 132/76; BP 150/90
--- NOTE | 2019-09-01 09:29 | PCM.CR.ITP ---
Diagnosis - General Information Admitting Diagnosis: W/CORONARY STENTING Personal Learning Style:: Audio/Visual, Written Barriers to Learning: No Barriers Stage of change r/t lifestyle modifications:: Action Gave educational material for:: Treating Heart Disease, Emotions & Heart Disease, Stress Management & Relaxation, Sleep Disorders & Heart Disease, How The Heart Works, What it means to have Heart Disease, How Coronary Artery Disease is Diagnosed, Heart Procedures, What Heart Medications Do, Risk Factors & Modifications, Living an Active Life, Nutrition - Education/Goals Individual Counseling: Initial Assessment: Abnormal Cholesterol Levels, High Blood Pressure, Overweight/Obesity Cardiac Rehabilitation Goals: 1. Maintain the individual as the primary focus of care. 2. To improve the patient's quality of life. 3. Identification of cardiac risk factors and provide cardiac risk factor management. 4. Enhance the psychosocial status of the patient. 5. Reconditioning enough to allow the patient to resume customary activities. 6. Control symptoms of cardiac disease Personal Goals: Initial Assessment: Quit smoking (participate in smoking cessation, Improve energy level, Participate in home exercise program, Improve muscle strength and endurance, Improve diet and eating habits (eat healthier), Control risk factors (learn risk factor modification) Scale for measuring improvement of personal goals: Enter appropriate number in Comments. 2 = Unchanged. 3 = Slightly Better. 4 = Moderate Improvement. 5 = Met my Goal - Diagnosis & Disease Process Outcomes/Goals: Pt IDs own risk factors & lifestyle modifications by Session 10, Verbalizes symptoms of angina & response by session 3., Pt independently manages Plan/Interventions: Assist Pt to ID & engage in lifestyle modification to reduce CVD risk, Instruct on individual risk factors, Review symptoms of angina & emergency actions, Review secondary diagnosis & identify educational needs. 30 day Reassessments:: Progressing 30 day Reassessments:: Progressing - Safety Referral to Physical Therapy: No Referral to [facility] Case Management: No Fall Risk Assessed:: Yes Assistive Devices:: None Exercise - 60-day Assessment - Visit Date of Eval: 09/01/19 Session #:: 20 - Physician Prescribed Exercise Modalities: Treadmill, Airdyne, NuStep Frequency: 3x/week for 12 weeks [36 sessions] Intensity: 60-80% of age predicted maximum heart rate reserve Target Heart Rate:: 100-135 Current RPE:: 11-12 Maximum Excercise HR:: 114 Resting Blood Pressure: 108/76 - CONTROLLED Maximum Exercise Blood Pressure: 158/100 EKG Type: NSR ti sinus tach with rare PVC, pAC adn burst of PAT noted. - Outcomes & Goals Goals:: Verbalizes understanding of THR, RPE & goal METS by session 6, Documents in home exercise log/reports 30 min aerobic 5 day/wk by DC, Demonstrates accurate pulse taking by DC - Intervention & Plan Exercise Program Goals: Instruct on personal THR & RPE, Instruct on MET level & personal MET goal, Show patient to take own pulse /validate performance until accurate, Instruct on home exercise - 30-day Reassessments 30 day Reassessments:: Progressing - Physical Activity Home Exercise Physical Activity - Home Exercise: Safe Exercise, Warm-up, Self-monitoring, Cool-Down, Home Exercise > 30 min Daily, Sitting Time <3 hours/daily - Outcomes & Goals Outcomes/Goals: Demonstrates correct Warm-up/exercise Cool-Down (S3) if = 2.5 METs, Verbalizes symptoms of exercise intolerance by Session 3 (S3), Demonstrate safe equipment use (S3) & follows exercise prescrition (6) - Intervention & Plan Plan/Intervention: Instruct warm-up & cool-down if exercising at > 2 METs, Instruct on symptoms of exercise intolerance & actions to take, Instruct & monitor on saf - 30-day Reassessments 30 day Reassessments:: Progressing Nutrition - 60-Day Assessment - Program Goals Nutrition Program Goals: LDL <100 optimal. 100 - 129 Near optimal. 130 - 159 Borderline High. 160 - 189 High. Total Cholesterol <200 desirable. 200 - 239 Borderline High. >/= 240 High. HDL < 40 Low >/=60 High. Triglycerides <150 desirable. <199 optimal. VlDL 5 - 40. HgbA1C <7%. BMI <25 Patient has diagnosis of Hyperlipidemia (ICD E78)?: Yes - Visit Date of Assessment:: 09/01/19 Session #:: 20 - Cholesterol/Lipids Determine presence & major risk factors that modify LDL goal: Cigarette smoking, Hypertension or hypertensive medication, Family history of premature CHD in Male < 55 years: female <65 yearsFa, Age men > 45 years; women >/= 55 years Outcomes/Goals: Pt IDs own risk factors & lifestyle modifications by Session 10, Verbalizes symptoms of angina & response by session 3., Pt independently manages Intervention/Plan: Instruct on personal lipid levels & lipid goals/NCEP guidelines, Instruct on cholesterol Referral to dietitian:: No - Diabetes (Other Core Measures) Diabetes Type: Not Applicable - Healthy Eating Habits Will attend diet classes:: Yes Outcomes/Goals:: Consume diet rich in vegs,fruits,whole grain/high fiber,fish,lean meat, Limit sat/trans fats,cholesterol & added salts & sugars Intervention/Plan:: Assess current eating habits 30-day Reassessments:: Progressing - Education Gave educational materials for:: Healthy eating Medical- 60-Day Assessment - Visit Date of Eval: 09/01/19 Session #:: 20 - Medication Compliance Preventative Medication(s):: Aspirin, Clopidogrel/P2Y12 inhibit, Statin/lipid, Beta samuel H/O mental health issues: depression, anxiety, or addiction?: No Doesn?t believe in the benefits of treatment?: No Believes medications are unnecessary or harmful?: No Has a concern about medication side effects?: No Expresses concern over the cost of medications?: No Outcomes/Goals: Verbalizes medications,desired effect & common side effects @ DC, Pt self-reports following medication regimen, Keeps card in wallet w/medications listed by DC Interventions/plans: Instruct on medication effects & side effects, Review medication list w/patient every two weeks, Instruct importance of taking meds as ordered & assist problem solving 30-day Reassessments:: Progressing - Tobacco Use Tobacco Use: Cigarettes How long ago did you quit using tobacco products?: Less than 6 months ago Do you use smokeless tobacco?: No Outcomes/Goals: Smoking cessation achieved or maintained by discharge, Identify aids/strategies for achieving smoking cessation by session 6 Interventions/plan: Instruct on effects of smoking & provide smoking cessation resource, Assist pt to set quit date & provide encouragement, Assist pt to develop strategies to achieve/maintain quit date, Assist pt w/nicotine replacement & medication for cessation success 30-day Reassessments:: Progressing - Hypertension Hypertension Diagnosis:: Hypertension ICD-10 I10 Resting Blood Pressure:: 108/76 - controlled [place] [employer] Hypertension Guidelines: [place] [employer] Hypertension Guidelines. Normal BP Less than 120/80. Elevated BP 120/80. Hypertension Stage 1: BP 130-139/80-89. Hypertesnion Stage 2: BP 140 or higher/90 or higher. Hypertension Crisis: BP higher than 180/120 Peak Exercise Blood Pressure:: 158/100 Outcomes/Goals: Able to verbalize/achieve optimal blood pressure <130/80, Incorporates diet changes & exercise for blood pressure control by DC Interventions/plan: Instruct on optimal blood pressure, hypertension & medications, Instruct on effects of sodium, alcohol, stress, exercise &hypertension 30 day Reassessments:: Progressing - Tobacco Cessation Referral Smoking Cessation Referral:: Yes Individual Education/Counseling:: No Education Schedule Given:: Yes Psychosocial - 60-Day Assess - VIsit Date of Eval: 09/01/19 Session #:: 20 Not Applicable: Yes History of previous Mental disease:: No - Target Goals Target Goals: Assess presence or absence of depression. Using a valid screening tool, maximizes coping skills. Positive support system - Psychosocial Test Tool Used:: PHQ-9 Questionnaire phq-9 Severity: Severity. 1-4 Minimal Depression. 5-9 Mild Depression. 10-14 Moderate Depression. 15-19 Moderately Sever Depression. 20-27 Severe Depression. Rule: - Referral to Behavioral Health PS - Interventions: Yes Attend Stress Management Classes, No Referral to Behavioral Health if PHQ-9 score >9:, No Referral to [facility], No Referral to Physician if PHQ-9 if score is 5-9: - Outcomes/Goals: See list Psychosocial Outcomes/Goals:: ID's personal stressors & 2 strategies to manage stress by discharge - Intervention/Plan: See List Interventions/Plan:: Assess stressors,coping strategies & signs of derpression on admission, Instruct/assist pt to develop coping & personal stress Mgt strategies, Instruct patient to recognize signs & symptoms of depression, Instruct patient to recog - 30-day Reassessments: 30 day Reassessments:: Progressing Patient Health Questionnaire 60-Day Re-eval Assessment 1. Little interest or pleasure in doing things: Not at all 2. Feeling down, depressed, or hopeless: Not at all 3. Trouble falling or staying asleep, or sleeping too much: Not at all 4. Feeling tired or having little energy: Not at all 5. Poor appetite or overeating: Not at all 6. Feeling bad about yourself -- or that you are a failure or have let yourself or your family down: Not at all 7. Trouble concentrating on things, such as reading the newspaper or watching television: Not at all 8. Moving or speaking so slowly that other people could have noticed. Or the opposite - being so fidgety or restless that you have been moving around a lot more than usual: Not at all 9. Thoughts that you would be better off , or of hurting yourself in some way: Not at all How difficult have these problems made it for you to do your work, take care of things at home, or get along with other people?: Not difficult at all Total Score: 0 Self-Efficacy 60-Day Re-eval Assessment We would like to know how confident you are in doing certain activities. Please select your confidence level for:: Select your confidence level for the following using the scale 1-10 where 1 is not at all confident and 10 is totally confident. Your score is the average of all 6 responses. Fatigue: How confident are you that you can keep the fatigue caused by your disease from interfering with the things you want to do? Select Number: 8 Physical Discomfort or Pain: How confident are you that you can keep the physical discomfort or pain of your disease from interfering with the things you want to do? Select Number: 10 Emotional Distress: How confident are you that you can keep the emotional distress caused by your disease from interfering with the things you want to do? Select Number: 10 Other Symptoms or Health Problems: How confident are you that you can keep other symptoms or health problems from interfering with the things you want to do? Select Number: 9 Different Tasks and Activities: How confident are you that you can do the different tasks and activities needed to manage your health condition so as to reduce your need to see a doctor? Select Number: 10 Medication: How confident are you that you can do things other than just taking medication to reduce how much your illness affects your everyday life? Select Number: 8 Total Score:: 9
[2019-09-01 10:09] VITALS: BP 108/76; BP 158/100
== END 2019-09-12 23:59 ==
LOC: CR 15:15
PROVIDERS: PCP Family Medicine; Referring Provider Internal Medicine Cardiovascular Disease; Visit Provider Internal Medicine Cardiovascular Disease
DX: I25.10 Atherosclerotic heart disease of native coronary artery without angina pectoris (principal); I50.30 Unspecified diastolic (congestive) heart failure; I27.20 Pulmonary hypertension, unspecified; R06.02 Shortness of breath; J44.9 Chronic obstructive pulmonary disease, unspecified; Z95.5 Presence of coronary angioplasty implant and graft
CPT/HCPCS: 93798

== ENCOUNTER 2021-07-03 11:11 | Outpatient (CLI) | payer OTHER, SELFPAY ==
[2019-08-04 07:20] VITALS: BMI 29.7
[2021-07-03 12:39] LABS: AST(SGOT) 12 U/L (15-37); Alanine Aminotransfer ALT/SGPT 18 U/L (16-61); Albumin, Serum 3.6 g/dL (3.2-5.0); Alkaline Phosphatase 92 U/L (45-117); Cholesterol 161 mg/dL (200); Globulin 4.6 g/dL (2.2-4.2); High Density Lipoprotein 47 mg/dL; Protein, Total 8.2 g/dL (6.4-8.2); Triglycerides 103 mg/dL; Very Low Density Lipoprotein 21 mg/dL (5-40)
== END 2021-07-03 23:59 | disposition short-term general hospital (02) ==
LOC: LAB 11:13
PROVIDERS: PCP Family Medicine; Visit Provider Internal Medicine Cardiovascular Disease
DX: Z95.5 Presence of coronary angioplasty implant and graft (principal)
CPT/HCPCS: 36415; 80061; 80076